=== PATIENT | female | born 1935 | race Caucasian/White ===

== ENCOUNTER → 2016-03-01 | Day surgery (SDC) | payer OTHER ==
[2016-02-25 09:03] VITALS: Ht 170.2 cm; Wt 81.8 kg
[~2016-03-01] VITALS: Ht 170.2 cm; Wt 81.8 kg
[~2016-03-01] MED LIST: 500ML BSS 0.3ML EPI 1:1000PF IRRIG ONE; ACETAMINOPHEN 325 MG TAB PO PRN; AMVISC PLUS 0.8ML SYRINGE INT OCU ONE; ASPI325T39 PO; ATROPINE SULFATE 0.1 MG/ML 5ML SYR IV PRN; AcetaZOLAMIDE 250 MG TAB PO SCH; BETAXOLOL HCL 0.25% OP SUSP PER DROP CHARGE OPR SCH; BRIMONIDINE TART 0.2% OP SOLN PER DROP CHARGE ONE; BSS FLUSH ONE; CHOL2000 PO; DOCU1CAP78 PO; ENDOCOAT 0.85ML SYRINGE INT OCU ONE; EpHEDrine SULFATE INJ 50 MG/ML AMP IV PRN; EpINEphrine INJ 1MG/ML AMP 1 MG/ML AMP ONE; FENTANYL CITRATE INJ 50 MCG/1 ML 2 ML VIAL IV PRN; FLUMAZENIL 0.1 MG/1 ML 10 ML VIAL IV PRN; HYDR2.5C60 RE; HYDROmorphone INJ 2 MG/ML SYR/VIAL IV PRN; LABETALOL HCL IV 5 MG/ML 20ML IV PRN; LACTATED RINGER'S 1000ML 500 ML IV SCH; LIDOCAINE 4% OP SOLN DROP CHARGE ONE; LIDOCAINE 4% OP SOLN DROP CHARGE OPR SCH; LIDOCAINE HCL 1% MPF 2 ML VIAL ONE; MIDAZOLAM HCL 1 MG/ML 2ML VIAL ONE; MIX: 4ML BSS 1ML EPI 1:1000 PF INSTIL ONE; MOXIFLOXACIN OPH SOLN PER DROP CHARGE ONE; MULT-614 PO; NALOXONE HCL 0.4 MG/1 ML VIAL/CARP IV PRN; OCUCOAT 1 ML SOLN IO ONE; ONDANSETRON INJ 2 MG/ML 2 ML VIAL IV PRN; PHENYLEPHRINE 100MCG/ML 5ML SYR IV PRN; POVIDONE-IODINE OP SOLN 30 ML BTL ONE; PRED1SUS3 OPR; PROPARACAINE 0.5% OP SOLN PER DROP CHARGE OPR SCH; PROPARACAINE HCL 0.5% OP SOLN 15 ML BTL OPR ONE; TOBRAMYCIN/DEXAMETHASONE OPH OINT PER APPLN CHARGE ONE; TOBRSUS; TRIA37.5 PO
--- NOTE | 2016-03-01 06:48 | History & Physical Bridge - [place] ---
H&P Re-Evaluation Bridge Note: I have examined the patient, reviewed the History & Physical and in the interval since the performance of the History & Physical I have noted the following changes of clinical significance: No changes noted
[2016-03-01] MEDS: PHENYLEPHRINE HCL 2.5% OP SOLN PER DROP CHARGE OPR SCH ×2 (07:04→07:09)
[2016-03-01] MEDS: TROPICAMIDE 1% OP SOLN PER DROP CHARGE OPR SCH ×2 (07:05→07:10)
[2016-03-01] MEDS: CYCLOPENTOLATE HCL 1% OP SOLN PER DROP CHARGE OPR SCH ×2 (07:07→07:11)
[2016-03-01] MEDS: MOXIFLOXACIN OPH SOLN PER DROP CHARGE OPR SCH ×2 (07:08→07:18)
--- NOTE | 2016-03-01 08:08 | Discharge Instructions-SurgCtr ---
Discharge Instructions Visit Reason for Visit: Cataract Right Eye Discharge Discharge Diagnosis / Problem: lens implant right eye Discharge Goals Goal(s): Improve function Medications Stopped Medications Name(s): HCTZ Activity Recommendations Activity Limitations: resume your previous activity Lifting Limitations: no more than 10 pounds Exercise/Sports Limitations: gradually increase as tolerated May Resume Sexual Activity: when tolerated Shower/Bathe: tomorrow Driving or Machine Use: resume 1 day after discharge Anesthesia . Post Anesthesia Instructions: If you have had General Anesthesia or IV Sedation: * Do not drive today. * Resume driving when surgeon permits. * Do not make important decisions or sign legal documents today. * Call surgeon for: 1. Temperature elevations greater than 101 degrees F. 2. Uncontrollable pain. 3. Excessive bleeding. 4. Persistent nausea and vomiting. 5. Medication intolerance (nausea, vomiting or rash). * For nausea and vomiting use only clear liquids such as: tea, soda, bouillon until nausea subsides, then gradually increase diet as tolerated. * If you have any concerns or questions, call your surgeon's office. If physician is unavailable and it is an emergency, call 911 or go to the nearest emergency room. . Instructions / Follow-Up Instructions / Follow-Up ACTIVITY RECOMMENDATIONS: * Light activities. * Mild irritation and blurred vision are common for the first few days. * You may walk outside, read, watch television. * Redness around the white part of the eye is common. MEDICATIONS: Resume previous medications unless instructed otherwise by your surgeon. * Take white Diamox (Acetazolamide) tablet at 1 pm today. Start all eye drops at 1 pm today: * Eye drops (today and tomorrow): Prednisone - one drop in operative eye every 3 hours while awake Tobramycin - one drop in operative eye every 3 hours while awake SPECIAL CARE INSTRUCTIONS: * Tape plastic shield over eye to sleep at night. Call your doctor at with any concerns or problems. FOLLOW UP VISIT: Follow-up with Dr Crow at [facility] as scheduled. Diet Recommendations Home Diet: no limitations Procedures Procedures Performed: right eye femtosecond bruno Pending Studies Studies pending at discharge: no Medical Emergencies . Who to Call and When: Medical Emergencies: If at any time you feel your situation is an emergency, please call 911 immediately. . Non-Emergent Contact Non-Emergency issues call your: Clinical Massage Therapist Call Non-Emergent contact if: your pain is not controlled [phone] . . "Provider Documentation" section prepared by Aleksandr Crow.
--- NOTE | 2016-03-01 08:12 | [facility] Operative Report ---
Operative Report 1. PREOPERATIVE DIAGNOSIS: Senile nuclear cataract, right eye. 2. POSTOPERATIVE DIAGNOSIS: Senile nuclear cataract, right eye. 3. PROCEDURE: Phacoemulsification of right cataract with posterior chamber lens implant, type Bausch & Lomb, model [id number], power +18.5 diopters. ANESTHESIA: Local standby. SURGEON: Dr. Crow. COMPLICATIONS: None. OPERATING TIME: 10 minutes. 4. OPERATION AND FINDINGS: DESCRIPTION OF PROCEDURE: The right pupil was dilated. The eye was appropriately marked. The patient was transported to the Femto Laser. The laser was used to make the primary incision and the capsulotomy and to soften the lens and placed two arcuate incisions. The anesthetic was administered using a topical technique. The right eye was prepped and draped. A speculum was placed. A paracentesis was placed. The chamber was filled with Amvisc Plus and Viscoat. Epinephrine solution was used. The capsule was removed. The nucleus was hydrodissected. The lens was removed with phacoemulsification. Time was 5.78 seconds. The aspiration unit was used to remove the cortex. The capsule was filled with Amvisc Plus. The lens implant was folded and placed into the capsule. The incision was hydrated. The Amvisc was aspirated. The wound was secure. The chamber was deep. The pupil was round. TobraDex ointment and Endocoat solution were placed. The speculum was removed. The patient was returned to the Recovery Room in stable condition. I attest to the content of the Intraoperative Record and any orders documented therein. Any exceptions are noted below. The scribe's documentation has been prepared in my presence, under my direction and personally reviewed by me in its entirety. I confirm that the note above accurately reflects all work, treatment, procedures, and medical decision making performed by me. I personally scribed for Aleksandr Crow M.D. (EULALIO) on 03/01/16 at 08:12. Electronically submitted by Christin Menjivar ([email or web address]).
[2016-03-01 08:14] VITALS: TEMP 36.4
[2016-03-01 08:40] VITALS: BP 155/90; PULSE 67; O2SAT 95
--- NOTE | 2016-03-01 08:42 | Anesthesia Progress Nt - [facility] ---
Anesthesia Post Op Note Date & Time Mar 01, 2016 at 08:42 Vital Signs Pain Intensity: 0 Vital Signs Past 12 Hours Date Time Temp Pulse Resp B/P Pulse Ox O2 Delivery O2 Flow Rate FiO2 03/01/16 08:40 67 20 155/90 95 Room Air 03/01/16 08:14 36.4 77 20 128/81 97 Room Air 03/01/16 07:46 158/91 03/01/16 07:43 84 03/01/16 07:43 84 92 03/01/16 07:39 170/87 03/01/16 07:38 92 94 03/01/16 07:38 92 16 03/01/16 06:56 36.5 86 16 179/80 96 Room Air Notes Mental Status: alert / awake / arousable, participated in evaluation Pt Amnestic to Procedure: Yes Nausea / Vomiting: adequately controlled Pain: adequately controlled Airway Patency, RR, SpO2: stable & adequate BP & HR: stable & adequate Hydration State: stable & adequate Anesthetic Complications: no major complications apparent
== END | disposition home or self-care (01) ==
LOC: X.SURG 06:38
PROVIDERS: ATTEND Specialist
DX: H25.11 Age-related nuclear cataract, right eye (principal); I10 Essential (primary) hypertension; N18.9 Chronic kidney disease, unspecified; Z88.8 Allergy status to other drugs, medicaments and biological substances

== ENCOUNTER → 2016-04-12 | Day surgery (SDC) | payer OTHER ==
[2016-03-30 15:05] VITALS: Ht 170.2 cm; Wt 81.8 kg
[~2016-04-12] VITALS: Ht 170.2 cm; Wt 81.8 kg
[~2016-04-12] MED LIST changes: +AcetylCHOLine CHL OP SOL 1:100 2 ML BTL ONE; +BETAXOLOL HCL 0.25% OP SUSP PER DROP CHARGE OPL SCH; -BETAXOLOL HCL 0.25% OP SUSP PER DROP CHARGE OPR SCH; -FENTANYL CITRATE INJ 50 MCG/1 ML 2 ML VIAL IV PRN; -FLUMAZENIL 0.1 MG/1 ML 10 ML VIAL IV PRN; -HYDROmorphone INJ 2 MG/ML SYR/VIAL IV PRN; -LABETALOL HCL IV 5 MG/ML 20ML IV PRN; +LIDOCAINE 4% OP SOLN DROP CHARGE OPL SCH; -LIDOCAINE 4% OP SOLN DROP CHARGE OPR SCH; -NALOXONE HCL 0.4 MG/1 ML VIAL/CARP IV PRN; -ONDANSETRON INJ 2 MG/ML 2 ML VIAL IV PRN; -PHENYLEPHRINE 100MCG/ML 5ML SYR IV PRN; +PROPARACAINE 0.5% OP SOLN PER DROP CHARGE OPL SCH; -PROPARACAINE 0.5% OP SOLN PER DROP CHARGE OPR SCH; -PROPARACAINE HCL 0.5% OP SOLN 15 ML BTL OPR ONE
[2016-04-12] MEDS: PHENYLEPHRINE HCL 2.5% OP SOLN PER DROP CHARGE OPL SCH ×2 (10:37→10:42)
[2016-04-12] MEDS: TROPICAMIDE 1% OP SOLN PER DROP CHARGE OPL SCH ×2 (10:38→10:43)
[2016-04-12] MEDS: CYCLOPENTOLATE HCL 1% OP SOLN PER DROP CHARGE OPL SCH ×2 (10:39→10:44)
[2016-04-12] MEDS: MOXIFLOXACIN OPH SOLN PER DROP CHARGE OPL SCH ×2 (10:40→10:50)
--- NOTE | 2016-04-12 11:40 | Discharge Instructions-SurgCtr ---
Discharge Instructions Visit Reason for Visit: Cataract Left Eye Discharge Discharge Diagnosis / Problem: lens implant left eye Discharge Goals Goal(s): Improve function Activity Recommendations Activity Limitations: resume your previous activity Lifting Limitations: no more than 10 pounds Exercise/Sports Limitations: gradually increase as tolerated May Resume Sexual Activity: when tolerated Shower/Bathe: tomorrow Driving or Machine Use: resume 1 day after discharge Anesthesia . Post Anesthesia Instructions: If you have had General Anesthesia or IV Sedation: * Do not drive today. * Resume driving when surgeon permits. * Do not make important decisions or sign legal documents today. * Call surgeon for: 1. Temperature elevations greater than 101 degrees F. 2. Uncontrollable pain. 3. Excessive bleeding. 4. Persistent nausea and vomiting. 5. Medication intolerance (nausea, vomiting or rash). * For nausea and vomiting use only clear liquids such as: tea, soda, bouillon until nausea subsides, then gradually increase diet as tolerated. * If you have any concerns or questions, call your surgeon's office. If physician is unavailable and it is an emergency, call 911 or go to the nearest emergency room. . Instructions / Follow-Up Instructions / Follow-Up ACTIVITY RECOMMENDATIONS: * Light activities. * Mild irritation and blurred vision are common for the first few days. * You may walk outside, read, watch television. * Redness around the white part of the eye is common. MEDICATIONS: Resume previous medications unless instructed otherwise by your surgeon. * Take white Diamox (Acetazolamide) tablet at 2 pm today. Start all eye drops at 2 pm today: * Eye drops (today and tomorrow): Prednisone - one drop in operative eye every 3 hours while awake Tobramycin - one drop in operative eye every 3 hours while awake SPECIAL CARE INSTRUCTIONS: * Tape plastic shield over eye to sleep at night. Call your doctor at with any concerns or problems. FOLLOW UP VISIT: Follow-up with Dr Crow at [facility] office as scheduled. Diet Recommendations Home Diet: no limitations Procedures Procedures Performed: cataract extraction with lens implant Pending Studies Studies pending at discharge: no Medical Emergencies . Who to Call and When: Medical Emergencies: If at any time you feel your situation is an emergency, please call 911 immediately. . Non-Emergent Contact Non-Emergency issues call your: Granite Countertop Installer Call Non-Emergent contact if: your pain is not controlled [phone] . . "Provider Documentation" section prepared by Aleksandr Crow.
--- NOTE | 2016-04-12 11:42 | [facility] Operative Report ---
Operative Report Date of Service Apr 12, 2016. Operative Report 1. PREOPERATIVE DIAGNOSIS: Senile nuclear cataract, left eye. 2. POSTOPERATIVE DIAGNOSIS: Senile nuclear cataract, left eye. 3. PROCEDURE: Phacoemulsification of left cataract with posterior chamber lens implant, type Bausch [employer] Lomb, model [id number], power +19.0 diopters. ANESTHESIA: Local standby. SURGEON: Dr. Crow. COMPLICATIONS: None. OPERATING TIME: 10 minutes. 4. OPERATION AND FINDINGS: DESCRIPTION OF PROCEDURE: The left pupil was dilated. The anesthetic was administered using a topical technique. The left eye was prepped and draped. A speculum was placed. A clear corneal incision was formed. The chamber was filled with Amvisc Plus and Endocoat. Epinephrine solution was used. A paracentesis was placed. A capsulorrhexis was performed. The nucleus was hydrodissected. The lens was removed with phacoemulsification. Time was 4.42 seconds. The aspiration unit was used to remove the cortex. The capsule was filled with Amvisc Plus. The lens implant was folded and placed into the capsule. The incision was hydrated. The Amvisc was aspirated. The wound was secure. The chamber was deep. The pupil was round. TobraDex ointment and Vigamox solution were placed. Miochol was irrigated into the chamber. The speculum was removed. The patient was returned to the Recovery Room in stable condition. I attest to the content of the Intraoperative Record and any orders documented therein. Any exceptions are noted below. The scribe's documentation has been prepared in my presence, under my direction and personally reviewed by me in its entirety. I confirm that the note above accurately reflects all work, treatment, procedures, and medical decision making performed by me. I personally scribed for Aleksandr Crow M.D. (EULALIO) on 04/12/16 at 11:42. Electronically submitted by Christin RON).
[2016-04-12 11:46] VITALS: TEMP 36.4
[2016-04-12 12:06] VITALS: BP 148/81; PULSE 67; O2SAT 97
--- NOTE | 2016-04-12 12:29 | Anesthesia Progress Nt - [facility] ---
Anesthesia Post Op Note Date & Time Apr 12, 2016 at 12:29 Vital Signs Pain Intensity: 0 Vital Signs Past 12 Hours Date Time Temp Pulse Resp B/P Pulse Ox O2 Delivery O2 Flow Rate FiO2 04/12/16 12:06 67 16 148/81 97 Room Air 04/12/16 11:46 36.4 75 16 168/91 96 Room Air 04/12/16 10:26 36.5 75 22 156/77 96 Room Air Notes Mental Status: alert / awake / arousable, participated in evaluation Pt Amnestic to Procedure: Yes Nausea / Vomiting: adequately controlled Pain: adequately controlled Airway Patency, RR, SpO2: stable & adequate BP & HR: stable & adequate Hydration State: stable & adequate Anesthetic Complications: no major complications apparent
== END | disposition home or self-care (01) ==
LOC: X.SURG 09:41
PROVIDERS: ATTEND Specialist
DX: H25.12 Age-related nuclear cataract, left eye (principal); M19.90 Unspecified osteoarthritis, unspecified site; I12.9 Hypertensive chronic kidney disease with stage 1 through stage 4 chronic kidney disease, or unspecified chronic kidney disease; N18.9 Chronic kidney disease, unspecified; Z68.28 Body mass index [BMI] 28.0-28.9, adult; Z86.73 Personal history of transient ischemic attack (TIA), and cerebral infarction without residual deficits; Z90.5 Acquired absence of kidney; Z98.41 Cataract extraction status, right eye

== ENCOUNTER → 2016-07-26 | Outpatient (CLI) | payer OTHER ==
[~2016-07-26] MED LIST changes: -500ML BSS 0.3ML EPI 1:1000PF IRRIG ONE; -ACETAMINOPHEN 325 MG TAB PO PRN; -AMVISC PLUS 0.8ML SYRINGE INT OCU ONE; -ATROPINE SULFATE 0.1 MG/ML 5ML SYR IV PRN; -AcetaZOLAMIDE 250 MG TAB PO SCH; -AcetylCHOLine CHL OP SOL 1:100 2 ML BTL ONE; -BETAXOLOL HCL 0.25% OP SUSP PER DROP CHARGE OPL SCH; -BRIMONIDINE TART 0.2% OP SOLN PER DROP CHARGE ONE; -BSS FLUSH ONE; -ENDOCOAT 0.85ML SYRINGE INT OCU ONE; -EpHEDrine SULFATE INJ 50 MG/ML AMP IV PRN; -EpINEphrine INJ 1MG/ML AMP 1 MG/ML AMP ONE; -LACTATED RINGER'S 1000ML 500 ML IV SCH; -LIDOCAINE 4% OP SOLN DROP CHARGE ONE; -LIDOCAINE 4% OP SOLN DROP CHARGE OPL SCH; -LIDOCAINE HCL 1% MPF 2 ML VIAL ONE; -MIDAZOLAM HCL 1 MG/ML 2ML VIAL ONE; -MIX: 4ML BSS 1ML EPI 1:1000 PF INSTIL ONE; -MOXIFLOXACIN OPH SOLN PER DROP CHARGE ONE; -OCUCOAT 1 ML SOLN IO ONE; -POVIDONE-IODINE OP SOLN 30 ML BTL ONE; -PROPARACAINE 0.5% OP SOLN PER DROP CHARGE OPL SCH; -TOBRAMYCIN/DEXAMETHASONE OPH OINT PER APPLN CHARGE ONE
[2016-07-26 17:35] LABS: HEMATOCRIT 36.4 % (37-47); MEAN CELL VOLUME 90.3 fL (80-100); MEAN CORPUSCULAR HGB CONC 33.2 g/dl (32-36); MEAN PLATELET VOLUME 10.6 fL (7.4-10.4); PLATELET COUNT 234 K/uL (130-400); RED BLOOD COUNT 4.03 M/uL (4.2-5.4); WHITE BLOOD COUNT 6.68 K/uL (4.8-10.8)
[2016-07-26 18:00] LABS: URINE APPEARANCE CLEAR (CLEAR); URINE BILIRUBIN NEG (NEG); URINE COLOR YELLOW; URINE NITRITE NEG (NEG); URINE SPECIFIC GRAVITY 1.014 (1.000-1.030); UROBILINOGEN NEG (NEG)
[2016-07-26 18:11] LABS: BLOOD UREA NITROGEN 35 mg/dl (7-18); BUN/CREATININE RATIO 21.6 (10-20); CARBON DIOXIDE 30 mmol/L (21-32); CHLORIDE 104 mmol/L (98-107); GLUCOSE 105 mg/dl (70-99); PHOSPHORUS 3.8 mg/dl (2.5-4.9); SODIUM 141 mmol/L (136-145)
[2016-07-26 18:12] LABS: MANUAL MICROSCOPIC REQUIRED? NO; REVIEW REQ? NO
[2016-07-26 18:18] LABS: URINE PROTIEN/CREAT RATIO 0.1 (0-0.2); URINE TOTAL PROTEIN 6.2 mg/dl (0-11.9)
[2016-07-26 18:34] LABS: CALCIUM 9.1 mg/dl (8.5-10.1)
== END | disposition home or self-care (01) ==
LOC: C.LABPVFM 15:26
PROVIDERS: ATTEND Internal Medicine Nephrology
DX: I12.9 Hypertensive chronic kidney disease with stage 1 through stage 4 chronic kidney disease, or unspecified chronic kidney disease (principal); N18.3 Chronic kidney disease, stage 3 (moderate); Z90.5 Acquired absence of kidney; E55.9 Vitamin D deficiency, unspecified

== ENCOUNTER → 2016-10-05 | Outpatient (CLI) | payer OTHER ==
--- NOTE | 2016-10-05 10:02 | DIAGNOSTIC IMAGING REPORT ---
CHEST 2 VIEWS ROUTINE CLINICAL HISTORY: R53.83 [id number] Dyspnea on [id number] COMPARISON STUDY: 11/25/2014 FINDINGS: Chronic pleural reactive changes left base. Lungs otherwise are clear. No evidence for cardiac enlargement. IMPRESSION: Chronic change. No acute process. The above report was generated using voice recognition software. It may contain grammatical, syntax or spelling errors. Electronically signed by: Ke Nevarez M.D. 10/05/2016 10:00 AM Dictated Date/Time: 10/05/2016 10:00 AM
[2016-10-05 12:23] LABS: BASO % 0.4 %; BASO ABS # 0.03 K/uL (0-0.2); COMPLETE YES; EOS % 4.4 %; HEMATOCRIT 39.8 % (37-47); IG% 0.3 %; LYMPH ABS # 2.05 K/uL (1.2-3.4); MEAN CELL VOLUME 90.5 fL (80-100); MEAN CORPUSCULAR HEMOGLOBIN 29.5 pg (25-34); MEAN CORPUSCULAR HGB CONC 32.7 g/dl (32-36); MEAN PLATELET VOLUME 10.5 fL (7.4-10.4); MONO % 8.8 %; NEUT % 60.1 %; PLATELET COUNT 224 K/uL (130-400); WHITE BLOOD COUNT 7.87 K/uL (4.8-10.8)
[2016-10-05 13:19] LABS: BLOOD UREA NITROGEN 37 mg/dl (7-18); BUN/CREATININE RATIO 21.6 (10-20); CALCIUM 9.4 mg/dl (8.5-10.1); CARBON DIOXIDE 32 mmol/L (21-32); CHLORIDE 102 mmol/L (98-107); GLUCOSE 94 mg/dl (70-99); POTASSIUM 4.3 mmol/L (3.5-5.1); SODIUM 138 mmol/L (136-145)
[2016-10-10 21:22] LABS: 18KDIGG BAND REACTIVE (NONREACTIVE); 23KDIGG BAND REACTIVE (NONREACTIVE); 23KDIGM BAND REACTIVE (NONREACTIVE); 28KDIGG BAND NONREACTIVE (NONREACTIVE); 30KDIGG BAND NONREACTIVE (NONREACTIVE); 39KDIGG BAND REACTIVE (NONREACTIVE); 39KDIGM BAND NONREACTIVE (NONREACTIVE); 41KDIGG BAND REACTIVE (NONREACTIVE); 41KDIGM BAND REACTIVE (NONREACTIVE); 45KDIGG BAND NONREACTIVE (NONREACTIVE); 58KDIGG BAND REACTIVE (NONREACTIVE); 66KDIGG BAND REACTIVE (NONREACTIVE); 93KDIGG BAND NONREACTIVE (NONREACTIVE)
== END | disposition home or self-care (01) ==
LOC: C.RADPV 09:33
PROVIDERS: ATTEND Nurse Practitioner
DX: R06.09 Other forms of dyspnea (principal); R53.83 Other fatigue; R20.0 Anesthesia of skin; A69.20 Lyme disease, unspecified

== ENCOUNTER → 2017-01-29 | Outpatient (CLI) | payer OTHER ==
[2017-01-29 17:38] LABS: MEAN CELL VOLUME 91.1 fL (80-100); MEAN CORPUSCULAR HEMOGLOBIN 30.2 pg (25-34); MEAN CORPUSCULAR HGB CONC 33.2 g/dl (32-36); MEAN PLATELET VOLUME 10.8 fL (7.4-10.4); PLATELET COUNT 221 K/uL (130-400); RED BLOOD COUNT 4.17 M/uL (4.2-5.4); WHITE BLOOD COUNT 7.56 K/uL (4.8-10.8)
[2017-01-29 17:41] LABS: URINE APPEARANCE CLEAR (CLEAR); URINE BILIRUBIN NEG (NEG); URINE COLOR YELLOW; URINE NITRITE NEG (NEG); URINE PH 6.5 (4.5-7.5); URINE SPECIFIC GRAVITY 1.021 (1.000-1.030); UROBILINOGEN NEG (NEG)
[2017-01-29 17:56] LABS: MANUAL MICROSCOPIC REQUIRED? NO; REVIEW REQ? NO
[2017-01-29 18:29] LABS: ALT/SGPT 25 U/L (12-78); BLOOD UREA NITROGEN 33 mg/dl (7-18); BUN/CREATININE RATIO 21.4 (10-20); CALCIUM 8.9 mg/dl (8.5-10.1); CARBON DIOXIDE 28 mmol/L (21-32); CHLORIDE 104 mmol/L (98-107); CREATININE 1.53 mg/dl (0.60-1.20); GLUCOSE 96 mg/dl (70-99); POTASSIUM 4.2 mmol/L (3.5-5.1); SODIUM 138 mmol/L (136-145); URIC ACID 8.4 mg/dl (2.6-7.2)
[2017-01-29 18:32] LABS: ALKALINE PHOSPHATASE 90 U/L (45-117); AST/SGOT 24 U/L (15-37)
[2017-01-29 18:46] LABS: CREATININE, URINE 99.5 mg/dl; URINE PROTIEN/CREAT RATIO 0.1 (0-0.2); URINE TOTAL PROTEIN 11.8 mg/dl (0-11.9)
== END | disposition home or self-care (01) ==
LOC: C.LABPVFM 01:56
PROVIDERS: ATTEND Internal Medicine Nephrology
DX: M10.9 Gout, unspecified (principal); N18.3 Chronic kidney disease, stage 3 (moderate); Z90.5 Acquired absence of kidney; E55.9 Vitamin D deficiency, unspecified; I12.9 Hypertensive chronic kidney disease with stage 1 through stage 4 chronic kidney disease, or unspecified chronic kidney disease

== ENCOUNTER 2017-03-26 13:36 | Observation (INO) | payer OTHER ==
[~2017-03-26] VITALS: Ht 170.2 cm; Wt 84.6 kg
[2017-03-26] MEDS ORDERED: ASPIRIN 81 MG CHEW PO STA (13:59)
--- NOTE | 2017-03-26 14:37 | DIAGNOSTIC IMAGING REPORT ---
CHEST ONE VIEW PORTABLE CLINICAL HISTORY: Chest Pain dyspnea COMPARISON STUDY: 10/05/2016 FINDINGS: The bones soft tissues and hemidiaphragms are normal. The cardiomediastinal silhouette is normal. The lungs are clear. The pulmonary vasculature is normal. IMPRESSION: Negative chest. The above report was generated using voice recognition software. It may contain grammatical, syntax or spelling errors. Electronically signed by: Ke Nevarez M.D. 03/26/2017 2:35 PM Dictated Date/Time: 03/26/2017 2:30 PM
[2017-03-26 15:15] LABS: BASO % 0.5 %; BASO ABS # 0.04 K/uL (0-0.2); EOS % 8.4 %; EOS ABS # 0.73 K/uL (0-0.5); HEMATOCRIT 36.6 % (37-47); HEMOGLOBIN 12.1 g/dL (12.0-16.0); IG# 0.02 K/uL (0.00-0.02); LYMPH % 24.7 %; LYMPH ABS # 2.13 K/uL (1.2-3.4); MEAN CELL VOLUME 89.5 fL (80-100); MEAN CORPUSCULAR HEMOGLOBIN 29.6 pg (25-34); MEAN CORPUSCULAR HGB CONC 33.1 g/dl (32-36); MEAN PLATELET VOLUME 10.5 fL (7.4-10.4); MONO % 8.4 %; MONO ABS # 0.73 K/uL (0.11-0.59); NEUT % 57.8 %; NEUT ABS # 4.99 K/uL (1.4-6.5); PLATELET COUNT 227 K/uL (130-400); RED CELL DISTRIBUTION WIDTH CV 13.8 % (11.5-14.5); WHITE BLOOD COUNT 8.64 K/uL (4.8-10.8)
[2017-03-26 15:49] LABS: BLOOD UREA NITROGEN 32 mg/dl (7-18); CALCIUM 8.6 mg/dl (8.5-10.1); CARBON DIOXIDE 28 mmol/L (21-32); CREATININE 1.56 mg/dl (0.60-1.20); GLUCOSE 88 mg/dl (70-99); POTASSIUM 4.2 mmol/L (3.5-5.1); SODIUM 138 mmol/L (136-145)
[2017-03-26 15:54] LABS: CKMB 1.4 ng/ml (0.5-3.6)
[2017-03-26] MEDS ORDERED: NITROGLYCERIN 0.4 MG SL PER TAB CHARGE SL PRN (16:45)
[2017-03-26] MEDS ORDERED: ACETAMINOPHEN 325 MG TAB PO PRN (16:45)
[2017-03-26] MEDS ORDERED: MAGNESIUM HYDROXIDE SUSP 30 ML UDC PO PRN (16:45)
[2017-03-26] MEDS ORDERED: ALUMINUM/MAGNESIUM/SIMETH (MAALOX MAX) 30 ML UDC PO PRN (16:45)
[2017-03-26] MEDS ORDERED: ONDANSETRON INJ 2 MG/ML 2 ML VIAL IV PRN (16:45)
--- NOTE | 2017-03-26 17:16 | History and Physical ---
History & Physical Date & Time of Service: Mar 26, 2017 at 17:08 Chief Complaint: Sob, Left Chest Pain Primary Care Physician: Gaby Mcelroy C.R.N.P History of Present Illness 82-year-old female with progressive decline in exercise stamina over the last few weeks. To the point were she getting vacuum room. Over the last few days she's had some left arm pain without any other associated symptoms, and then on the day of admission had a difficult to describe left chest pain behind her breast. This was also without any associated symptoms. The pain resolved she attempted to see her primary care physician however they were full so she presented to the ER.. Her initial evaluation was unremarkable for enzymes and EKG or chest x-ray changes however her story was convincing and corroborated by her . 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 Gonzalez and his oversight to get her through it Past Medical/Surgical History Medical Problems: (1) Angiomyolipoma Status: Resolved (2) History of TIA (transient ischemic attack) Status: Resolved (3) HTN (hypertension) Status: Chronic (4) Lyme disease on 2 occasions Status: Chronic Surgical Problems: (1) H/O tubal ligation Status: Resolved (2) H/O unilateral nephrectomy Status: Resolved Family History Cancer Heart disease Hypertension Lung disease Social History Smoking Status: Never Smoker (however significant secondhand smoke exposure as a youth) Drug Use: none Marital Status: Occupational Status: retired Multi-Drug Resistant Organisms History of MDRO: No Allergies Coded Allergies: Propoxyphene (Verified Allergy, Unknown, ? CANT REMEMBER, 03/26/17) Sulfamethoxazole (Verified Allergy, Unknown, FELT DEPRESSED, 03/26/17) Trimethoprim (Verified Allergy, Unknown, UNKNOWN, 03/26/17) Lisinopril (Verified Adverse Reaction, Mild, cough, 03/26/17) Meperidine (Unverified Adverse Reaction, Unknown, COULD NOT WAKE UP AFTER , 03/26/17) Home Medications Scheduled Aspirin (Aspirin Ec), 325 MG PO QAM Cholecalciferol (Vitamin D3), 1 CAP PO QAM Docusate Calcium (Stool Softener), 1 CAP PO QAM Multiple Vitamins W/ Minerals (Centrum Silver Ultra Wome), 1 TAB PO QPM Prednisolone Acetate (Ophth) (Pred Forte 1% Oph), 1 DROPS OPR BID Triamterene/Hctz (Dyazide 37.5MG/25MG), 1 TAB PO QAM Scheduled PRN Hydrocortisone (Rectal) (Procto-Med Hc), 1 DOSE RE DIRECTED PRN for PRN Review of Systems ROS: well nourished well developed No double vision blurry vision No problems with speech or swallowing No palpitations, but she has had occasional chest pain that she has difficulty describing No Wheezing the patient says she gets short of breath or "played out when she exerts herself No abdominal pain nausea vomiting diarrhea she does have chronic constipation worsened by hemorrhoids, no changes in appetite or weight No burning urine urine frequency or changes in color No focal joint pain or muscle pain her feet do bother her and she is worried about doing a treadmill test because of the No skin rashes or oral lesions No unusual bruising or bleeding No focused back pain or loss of strength she is complaining about distal finger and toe neuropathy though No changes in memory or confusion Physical Exam Vital Signs Date Time Temp Pulse Resp B/P (MAP) Pulse Ox O2 Delivery O2 Flow Rate FiO2 03/26/17 15:06 64 18 148/77 97 Room Air 03/26/17 14:32 71 03/26/17 14:22 96 Room Air 03/26/17 14:21 68 20 146/75 98 Room Air 03/26/17 13:38 36.8 76 18 151/82 98 General Appearance: WD/WN, no apparent distress Head: normocephalic, atraumatic Eyes: normal inspection, PERRL, EOMI, sclerae normal ENT: hearing grossly normal, pharynx normal Neck: supple, thyroid normal Respiratory/Chest: chest non-tender, lungs clear, normal breath sounds Cardiovascular: regular rate, rhythm, no murmur Abdomen/GI: non tender, soft Back: no CVA tenderness, no muscle spasm Extremities/Musculoskelatal: no pedal edema, normal range of motion Neurologic/Psych: alert, oriented x 3 Skin: normal color, warm/dry, no rash Diagnostics Laboratory Results Results Past 24 Hours Test 03/26/17 14:15 Range/Units White Blood Count 8.64 4.8-10.8 K/uL Red Blood Count 4.09 4.2-5.4 M/uL Hemoglobin 12.1 12.0-16.0 g/dL Hematocrit 36.6 37-47 % Mean Corpuscular Volume 89.5 80-100 fL Mean Corpuscular Hemoglobin 29.6 25-34 pg Mean Corpuscular Hemoglobin Concent 33.1 32-36 g/dl Platelet Count 227 130-400 K/uL Mean Platelet Volume 10.5 7.4-10.4 fL Neutrophils (%) (Auto) 57.8 % Lymphocytes (%) (Auto) 24.7 % Monocytes (%) (Auto) 8.4 % Eosinophils (%) (Auto) 8.4 % Basophils (%) (Auto) 0.5 % Neutrophils # (Auto) 4.99 1.4-6.5 K/uL Lymphocytes # (Auto) 2.13 1.2-3.4 K/uL Monocytes # (Auto) 0.73 0.11-0.59 K/uL Eosinophils # (Auto) 0.73 0-0.5 K/uL Basophils # (Auto) 0.04 0-0.2 K/uL RDW Standard Deviation 45.0 36.4-46.3 fL RDW Coefficient of Variation 13.8 11.5-14.5 % Immature Granulocyte % (Auto) 0.2 % Immature Granulocyte # (Auto) 0.02 0.00-0.02 K/uL Sodium Level 138 136-145 mmol/L Potassium Level 4.2 3.5-5.1 mmol/L Chloride Level 103 98-107 mmol/L Carbon Dioxide Level 28 21-32 mmol/L Anion Gap 7.0 3-11 mmol/L Blood Urea Nitrogen 32 7-18 mg/dl Creatinine 1.56 0.60-1.20 mg/dl Est Creatinine Clear Calc Drug Dose 30.8 ml/min Estimated GFR () 35.2 Estimated GFR (Non- 30.4 BUN/Creatinine Ratio 20.6 10-20 Random Glucose 88 70-99 mg/dl Calcium Level 8.6 8.5-10.1 mg/dl Total Creatine Kinase 110 26-192 U/L Creatine Kinase MB 1.4 0.5-3.6 ng/ml Creatine Kinase MB Ratio 1.3 0-3.0 Troponin I < 0.015 0-0.045 ng/ml CXR normal Normal EKG Impression Assessment and Plan 82-year-old female with atypical chest pain symptoms Patient be observed in telemetry serial enzymes and EKGs will be undertaken we' ll put her in for a dobutamine stress echo. The patient's sees Dr. Garcia and wanted that to be noted in the chart we'll hold her diuretic at this time will continue aspirin if her pain recurs may consider instituting metoprolol or nitrates Patient does have significant second smoke exposure and she was told in the past by manager home improvement that she did not of the "best" lungs she is not having any wheezing or other problems at this time will continue to support symptoms if they arise she is not hypoxic in the ER Constipation the patient requests to continue her Colace therapy does not want anything additional order prunes with her meals Chronic kidney disease stage III and unilateral kidney will hold her diuretic at this time watch her renal function daily renal dose medicines were appropriate DVT prevention will be SCDs and early ambulation Patient is a full code Level of Care Telemetry Resuscitation Status FULL RESUSCITATION VTE Prophylaxis VTE Risk Assessment Done? Y/N: Yes Risk Level: Moderate Given or contraindicated: SCD's, Treatment not indicated
[2017-03-26] MEDS ORDERED: HydrALAZINE HCL 20 MG/ML VIAL IV PRN (17:30)
--- NOTE | 2017-03-26 19:12 | EMERGENCY ROOM VISIT NOTE ---
History Report prepared by Karuna: Alvaro Holguin Under the Supervision of: Dr. Jonn Cortes D.O. First contact with patient: 13:52 Chief Complaint: CHEST PAIN Stated Complaint: SOB, LEFT CHEST PAIN Nursing Triage Summary: pt to the ED with c/o left sided chest pain and down left arm on sunday with SOB and decreased energy since then pt still has chest pain and pain is intermittant and "something different pain " per pt called medical center and they told her to come to the ED History of Present Illness The patient is an 82 year old female who presents to the Emergency Room with complaints of on and off left chest pain starting this morning, and the patient states that that the last time she had this pain was right before lunch. The patient notes that she has been increasingly short of breath for the past 2-3 weeks, and the other day she had an episode of left arm pain that resolved. The patient states that her chest pain does not come or go with anything, and she is not more short of breath with exertion or the chest pain. The pain is not worsened by anything. She states that when she is cleaning her house she has to rest because she is so short of breath. She states that her pain is not a sharp pain, and she denies any arm pain or jaw pain today. The patient additionally reports that she has a cough, and she has been congested at night while using a humidifier and is fine during the day. The patient has a history of hypertension , and she states that she takes aspiring daily. She denies any history of heart attacks, diabetes, and high cholesterol. Pt denies headache, change in vision, fevers, nausea, vomiting, diarrhea, pain with urination, leg swelling, and melena. She is not a smoker. Source of History: patient Onset: this morning Position: chest (left) Timing: other (on and off) Modifying Factors (Worsening): other (nothing) Associated Symptoms: + cough, + SOB, No nausea, No vomiting, No abdominal pain Note: Associated symptoms: arm pain Review of Systems See HPI for pertinent positives & negatives. A total of 10 systems reviewed and were otherwise negative. Past Medical & Surgical Medical Problems: (1) Angiomyolipoma (2) Chest pain (3) History of TIA (transient ischemic attack) (4) HTN (hypertension) (5) Lyme disease Surgical Problems: (1) H/O tubal ligation (2) H/O unilateral nephrectomy Family History Cancer Heart disease Hypertension Lung disease Social History Smoking Status: Never Smoker Alcohol Use: none Drug Use: none Marital Status: Housing Status: lives with significant other Occupation Status: retired Current/Historical Medications Scheduled Aspirin (Aspirin Ec), 325 MG PO QAM Cholecalciferol (Vitamin D3), 1 CAP PO QAM Docusate Calcium (Stool Softener), 1 CAP PO QAM Multiple Vitamins W/ Minerals (Centrum Silver Ultra Wome), 1 TAB PO QPM Prednisolone Acetate (Ophth) (Pred Forte 1% Oph), 1 DROPS OPR BID Triamterene/Hctz (Dyazide 37.5MG/25MG), 1 TAB PO QAM Scheduled PRN Hydrocortisone (Rectal) (Procto-Med Hc), 1 DOSE RE DIRECTED PRN for PRN Allergies Coded Allergies: Propoxyphene (Verified Allergy, Unknown, ? CANT REMEMBER, 03/26/17) Sulfamethoxazole (Verified Allergy, Unknown, FELT DEPRESSED, 03/26/17) Trimethoprim (Verified Allergy, Unknown, UNKNOWN, 03/26/17) Lisinopril (Verified Adverse Reaction, Mild, cough, 03/26/17) Meperidine (Unverified Adverse Reaction, Unknown, COULD NOT WAKE UP AFTER , 03/26/17) Physical Exam Vital Signs Date Time Temp Pulse Resp B/P (MAP) Pulse Ox O2 Delivery O2 Flow Rate FiO2 03/26/17 21:23 76 18 164/82 96 03/26/17 20:30 72 18 168/84 96 Room Air 03/26/17 18:30 64 03/26/17 18:27 74 16 175/79 98 Room Air 03/26/17 17:00 65 18 175/77 98 Room Air 03/26/17 15:06 64 18 148/77 97 Room Air 03/26/17 14:32 71 03/26/17 14:22 96 Room Air 03/26/17 14:21 68 20 146/75 98 Room Air 03/26/17 13:38 36.8 76 18 151/82 98 Physical Exam GENERAL: Sitting up in bed, alert, well appearing, well nourished, no distress, non-toxic EYE EXAM: normal conjunctiva. OROPHARYNX: no exudate, no erythema, lips, buccal mucosa, and tongue normal and mucous membranes are moist NECK: supple, no nuchal rigidity, no adenopathy, non-tender LUNGS: Clear to auscultation. Normal chest wall mechanics HEART: no murmurs, S1 normal and S2 normal ABDOMEN: abdomen soft, non-tender, normo-active bowel sounds, no masses, no rebound or guarding. BACK: Back is symmetrical on inspection and there is no deformity, no midline tenderness, no CVA tenderness. SKIN: no rashes and no bruising UPPER EXTREMITIES: upper extremities are grossly normal. LOWER EXTREMITIES: Calves are equal bilaterally. No pitting edema. NEURO EXAM: Normal sensorium, cranial nerves II-XII grossly intact, normal speech, no gross weakness of arms, no gross weakness of legs. Medical Decision & Procedures ER Provider Diagnostic Interpretation: Radiology results as stated below per my review and the radiologist's interpretation: CHEST ONE VIEW PORTABLE CLINICAL HISTORY: Chest Pain dyspnea COMPARISON STUDY: 10/05/2016 FINDINGS: The bones soft tissues and hemidiaphragms are normal. The cardiomediastinal silhouette is normal. The lungs are clear. The pulmonary vasculature is normal. IMPRESSION: Negative chest. The above report was generated using voice recognition software. It may contain grammatical, syntax or spelling errors. Electronically signed by: Ke Nevarez M.D. 03/26/2017 2:35 PM Dictated Date/Time: 03/26/2017 2:30 PM Laboratory Results 03/26/17 14:15 Red Blood Count 4.09, Mean Corpuscular Volume 89.5, Mean Corpuscular Hemoglobin 29.6, Mean Corpuscular Hemoglobin Concent 33.1, Mean Platelet Volume 10.5, Neutrophils (%) (Auto) 57.8, Lymphocytes (%) (Auto) 24.7, Monocytes (%) (Auto) 8.4, Eosinophils (%) (Auto) 8.4, Basophils (%) (Auto) 0.5, Neutrophils # (Auto) 4.99, Lymphocytes # (Auto) 2.13, Monocytes # (Auto) 0.73, Eosinophils # (Auto) 0.73, Basophils # (Auto) 0.04 03/26/17 14:15 Test 03/26/17 14:15 White Blood Count 8.64 K/uL (4.8-10.8) Red Blood Count 4.09 M/uL (4.2-5.4) Hemoglobin 12.1 g/dL (12.0-16.0) Hematocrit 36.6 % (37-47) Mean Corpuscular Volume 89.5 fL (80-100) Mean Corpuscular Hemoglobin 29.6 pg (25-34) Mean Corpuscular Hemoglobin Concent 33.1 g/dl (32-36) Platelet Count 227 K/uL (130-400) Mean Platelet Volume 10.5 fL (7.4-10.4) Neutrophils (%) (Auto) 57.8 % Lymphocytes (%) (Auto) 24.7 % Monocytes (%) (Auto) 8.4 % Eosinophils (%) (Auto) 8.4 % Basophils (%) (Auto) 0.5 % Neutrophils # (Auto) 4.99 K/uL (1.4-6.5) Lymphocytes # (Auto) 2.13 K/uL (1.2-3.4) Monocytes # (Auto) 0.73 K/uL (0.11-0.59) Eosinophils # (Auto) 0.73 K/uL (0-0.5) Basophils # (Auto) 0.04 K/uL (0-0.2) RDW Standard Deviation 45.0 fL (36.4-46.3) RDW Coefficient of Variation 13.8 % (11.5-14.5) Immature Granulocyte % (Auto) 0.2 % Immature Granulocyte # (Auto) 0.02 K/uL (0.00-0.02) Anion Gap 7.0 mmol/L (3-11) Est Creatinine Clear Calc Drug Dose 30.8 ml/min Estimated GFR () 35.2 Estimated GFR (Non- 30.4 BUN/Creatinine Ratio 20.6 (10-20) Calcium Level 8.6 mg/dl (8.5-10.1) Total Creatine Kinase 110 U/L (26-192) Creatine Kinase MB 1.4 ng/ml (0.5-3.6) Creatine Kinase MB Ratio 1.3 (0-3.0) Troponin I < 0.015 ng/ml (0-0.045) Laboratory results per my review. Medications Administered Medications (Trade) Dose Ordered Sig/Vicki Route Start Time Stop Time Status Last Admin Dose Admin Aspirin (Aspirin Chew) 324 mg NOW STAT PO 03/26/17 13:59 03/26/17 14:01 DC 03/26/17 14:15 324 MG ECG Indication: chest pain Rate (beats per minute): 78 Rhythm: sinus rhythm Findings: no ectopy, other (normal axis) Change: Patient's EKG interpreted by me. ED Course ED COURSE: Vital signs were reviewed and showed situational hypertension The patients medical record was reviewed The above diagnostic studies were performed and reviewed. ED treatments and interventions as stated above. 1352: The patient was evaluated in room A12. A complete history and physical examination was performed. 1359: Aspirin 324mg PO 1621: Upon reevaluation, the patient is in no pain.I discussed my findings with the patient and she understands and agrees with the treatment plan. Based on the patients age, coexisting illnesses, exam and lab findings the decision to treat as an inpatient was made. The patient remained stable while under my care. The patient will be evaluated for further management. 1706: I reviewed the patient's case with Dr. Jessa REA Hospitalist. He will evaluate the patient for further management. Medical Decision Differential diagnoses includes but is not limited to acute coronary syndrome, myocardial infarction, pericarditis, pulmonary embolus, aortic dissection, pneumonia, pneumothorax, musculoskeletal, shingles, esophageal. Patient is an 82-year-old female who presents to ER for chest pain associated with shortness of breath and left arm pain. Shortness of breath has been worsening with exertion over the past 2 weeks. Chest pain was left-sided today. Referred in by PCP. History of hypertension. CBC and BMP were unremarkable. Troponin was negative. EKG was nondiagnostic. Chest x-ray without acute findings. Patient was given aspirin. She is pain-free while in the ER. Discussed with internal medicine patient will be observed overnight. Medication Reconcilliation Current Medication List: was personally reviewed by me Blood Pressure Screening Patient's blood pressure: Elevated blood pressure Blood pressure disposition: Elevated BP felt to be situational Consults Time Called: 1703 Consulting Physician: Dr. Christiansen Returned Call: 1706 I reviewed the patient's case with Dr. Jessa REA Hospitalist. He will evaluate the patient for further management. Impression Primary Impression: Precordial chest pain Additional Impression: Exertional dyspnea Scribe Attestation The scribe's documentation has been prepared under my direction and personally reviewed by me in its entirety. I confirm that the note above accurately reflects all work, treatment, procedures, and medical decision making performed by me. Departure Information Dispostion Being Evaluated By Hospitalist Referrals Gaby Mcelroy C.R.N.P (PCP) Patient Instructions My [facility] Problem Qualifiers
[2017-03-26] MEDS ORDERED: PrednisoLONE ACET 1% OP SUSP 5 ML BTL OPR SCH (21:00)
[2017-03-26 21:25] VITALS: BP 168/79; PULSE 80; TEMP 36.5; Ht 170.2 cm; Wt 84.6 kg
[2017-03-26 22:27] VITALS: BP 168/79; PULSE 80; TEMP 36.5; O2SAT 94
[2017-03-26 23:10] VITALS: BP 165/80; PULSE 69; TEMP 36.5; O2SAT 93
[2017-03-27 04:51] LABS: HEMATOCRIT 35.7 % (37-47); HEMOGLOBIN 11.6 g/dL (12.0-16.0); MEAN CELL VOLUME 89.3 fL (80-100); MEAN CORPUSCULAR HGB CONC 32.5 g/dl (32-36); MEAN PLATELET VOLUME 10.4 fL (7.4-10.4); PLATELET COUNT 202 K/uL (130-400); RED CELL DISTRIBUTION WIDTH CV 13.5 % (11.5-14.5); RED CELL DISTRIBUTION WIDTH SD 44.4 fL (36.4-46.3); WHITE BLOOD COUNT 8.13 K/uL (4.8-10.8)
[2017-03-27 05:09] LABS: BLOOD UREA NITROGEN 32 mg/dl (7-18); CALCIUM 8.4 mg/dl (8.5-10.1); CARBON DIOXIDE 29 mmol/L (21-32); CREATININE 1.49 mg/dl (0.60-1.20); GLUCOSE 92 mg/dl (70-99); POTASSIUM 4.1 mmol/L (3.5-5.1); SODIUM 139 mmol/L (136-145)
[2017-03-27 08:08] VITALS: BP 131/88; PULSE 67; TEMP 36.7; O2SAT 95
[2017-03-27 08:16] VITALS: O2SAT 95
[2017-03-27] MEDS ORDERED: DOCUSATE CALCIUM 240 MG CAP PO SCH (09:00)
[2017-03-27] MEDS ORDERED: ASPIRIN 325 MG ECTAB PO SCH (09:00)
[2017-03-27] MEDS ORDERED: METOPROLOL TARTRATE 1 MG/ML VIAL ONE (09:23)
[2017-03-27] MEDS ORDERED: DOBUTamine HCL 12.5 MG/ML 20 ML VIAL ONE (09:23)
[2017-03-27] MEDS ORDERED: ATROPINE SULFATE 0.1 MG/ML 5ML SYR ONE (09:24)
[2017-03-27 11:36] VITALS: BP 155/82; PULSE 67; TEMP 36.4; O2SAT 99
--- NOTE | 2017-03-27 11:47 | Discharge Instructions ---
Discharge Instructions Date of Service Mar 27, 2017. Admission Reason for Admission: Chest Pain Discharge Discharge Diagnosis / Problem: Chest pain Discharge Goals Goal(s): Diagnostic testing Activity Recommendations Activity Limitations: resume your previous activity Exercise/Sports Limitations: as tolerated . Instructions / Follow-Up Instructions / Follow-Up Please follow up with your primary care provider in about a week Current Hospital Diet Patient's current hospital diet: Regular Diet Discharge Diet Recommended Diet: Regular Diet Procedures Procedures Performed: Dobutamine Stress Test Chest Xray Pending Studies Studies pending at discharge: no Medical Emergencies . Who to Call and When: Medical Emergencies: If at any time you feel your situation is an emergency, please call 911 immediately. . Non-Emergent Contact Non-Emergency issues call your: Primary Care Provider Call Non-Emergent contact if: you have any medication questions . . "Provider Documentation" section prepared by Estee Levine. . VTE Core Measure Inpt VTE Proph given/why not?: SCD's, Treatment not indicated
--- NOTE | 2017-03-27 11:56 | Discharge Summary ---
Discharge Summary Date of Service Mar 27, 2017. Discharge Summary Admission Date: Mar 26, 2017 at 16:48 Discharge Date: Mar 27, 2017 Discharge Disposition: Home Principal Diagnosis: Chest Pain Procedures: Dobutamine Stress test that did not show signs of ischemia CHEST ONE VIEW PORTABLE CLINICAL HISTORY: Chest Pain dyspnea COMPARISON STUDY: 10/05/2016 FINDINGS: The bones soft tissues and hemidiaphragms are normal. The cardiomediastinal silhouette is normal. The lungs are clear. The pulmonary vasculature is normal. IMPRESSION: Negative chest. Medication Reconciliation Continued Medications: Aspirin (Aspirin Ec) 325 Mg Tab 325 MG PO QAM Cholecalciferol (Vitamin D3) 2,000 Unit Cap 1 CAP PO QAM for 90 Days, #90 CAP 3 Refills Docusate Calcium (Stool Softener) 240 Mg Cap 1 CAP PO QAM Hydrocortisone (Rectal) (Procto-Med Hc) 2.5 % Cre 1 DOSE RE DIRECTED PRN for PRN Multiple Vitamins W/ Minerals (Centrum Silver Ultra Wome) 1 Tab Tab 1 TAB PO QPM Prednisolone Acetate (Ophth) (Pred Forte 1% Oph) 1 % Melonie 1 DROPS OPR BID, #10 ML Triamterene/Hctz (Dyazide 37.5MG/25MG) Cap 1 TAB PO QAM, CAP Discharge Exam ROS Constitutional: no chills, aches, sweats or fever Respiratory: mild sob,cough, sputum, or wheezing Cardiac: no chest pain, palpitations, edema, orthopnea or lightheadedness GI: no abdominal pain, nausea, vomiting, diarrhea or constipation : no dysuria or hesitancy Extremities: no joint pain or weakness Skin: no rash All other systems reviewed and negative PE General: no distress Eyes: normal inspection, PERLL Respiratory: chest non tender, clear to auscultation, normal breath sounds, no respiratory distress, no accessory muscle use Cardiac: regular rate and rhythm, no rub or gallop, no murmur, no edema, no jvd GI/: active bowel sounds, no abd pain or tenderness, soft, non distended Extremities: normal range of motion, normal strength, non tender Neuro/Psych: alert and oriented x 3, normal mood and affect Skin: normal color, dry Hospital Course 82-year-old female with progressive decline in exercise stamina over the last few weeks, she feels like she is just generally slowing down. Over the last few days she's had some left arm pain without any other associated symptoms, and then on the day of admission had a difficult to describe left chest pain behind her breast. This was also without any associated symptoms. The pain resolved she attempted to see her primary care physician however they were full so she presented to the ER.. 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 Gonzalez and his oversight to get her through it CP - Patient was observed in telemetry - dobutamine stress echo negative for cardiac ischemia - troponins negative x4 Constipation - continue Colace therapy Chronic kidney disease stage III and unilateral kidney - held her diuretic to watch her renal function - appears to be around baseline with creat of 1.49 i personally examined pt and verified all sprague points w S Guillard [employer] feeling better now vitals noted nad breathing unlabored no pallor or icterus negative foraminal compression at Cspine, negative rotator cuff maneuvers chest/arm pain - WI ruled out, CAD highly unlikely w stress negative as well. ? msk given arm -- negative bedside testing but also feeling better now stable for home Total Time Spent: Greater than 30 minutes This includes examination of the patient, discharge planning, medication reconciliation, and communication with other providers. Discharge Instructions Please refer to the electronic Patient Visit Report (Discharge Instructions) for additional information. Follow-Up Primary care within about a week Additional Copies To Gaby Mcelroy C.R.N.P
[2017-03-27 13:12] VITALS: BP 155/82; PULSE 67; TEMP 36.4; O2SAT 99
--- NOTE | 2017-03-27 15:50 | DOBUTAMINE ECHO ---
*NOTICE TO RECEIVING [employer] This information is strictly Confidential and protected under [place] law. [place] law prohibits you from making any further disclosure of this information unless further disclosure is expressly permitted by the written consent of the person to whom it pertains or is authorized by law. A general authorization for the release of medical or other information is not sufficient for this purpose. Hospital accepts no responsibility if the information is made available to any other person, INCLUDING THE PATIENT. Interpretation Summary * Name: BAKARI CURRAN Study Date: 03/27/2017 09:04 AM BP: 152/65 mmHg * Patient Location: [facility]\S\N278\S\2 HR: 71 * : 1935 (M/d/yyyy) Gender: Female Height: 67 in * Age: 82 yrs Ethnicity: [place] Weight: 189 lb * Ordering Physician: Jose Antonio Germain * Referring Physician: Gaby Mcelroy Performed By: Gina Lin RDCS * * Reason For Study: Chest Pain * BSA: 2.0 m2 * -- Conclusions -- * 1. Negative dobutamine stress echocardiogram for myocardial ischemia at 94% of the maximum predicted heart rate. * 2. No dobutamine induced chest pain. * 3. No EKG changes. * 4. Baseline echocardiogram notes normal left ventricular systolic function and mild left ventricular hypertrophy. Procedure Details * DOBUTAMINE ECHO, CPT#[id number] * ECHO DOPPLER, CPT #[id number] * ECHO COLOR FLOW, CPT #[id number] Left Ventricle * The left ventricle is normal in size. * There is mild concentric left ventricular hypertrophy. * Ejection Fraction = 60-65%. * Left ventricular systolic function is normal. * Resting wall motion: Normal. Stress wall motion: Appropriate increase in Left ventricular systolic function and decrease in cavity size. No stress induced segmental wall motion abnormalities. Right Ventricle * The right ventricle is normal size. * The right ventricular systolic function is normal as assessed by tricuspid annular plane systolic excursion (TAPSE) (normal >1.5 cm). Atria * The left atrium is mildly dilated. * Right atrial size is normal. * No ASD detected; PFO is not assessed. Mitral Valve * The mitral valve anatomy is normal. * There is no mitral valve stenosis. * There is mild to moderate mitral regurgitation. Tricuspid Valve * The tricuspid valve anatomy is normal. * There is no tricuspid stenosis. * There is mild tricuspid regurgitation. Aortic Valve * The aortic valve is trileaflet. * The aortic valve opens well. * No hemodynamically significant valvular aortic stenosis. * There is no significant aortic regurgitation. Pulmonic Valve * The pulmonary valve is not well seen, but the Doppler examination is normal without significant regurgitation or stenosis. Great Vessels * The aortic root is normal size. * The pulmonary is not well visualized. Pericardium * There is no pericardial effusion. Stress Parameters * Normal baseline electrocardiogram. * Stress ECG: No ST changes. No arrhythmias. * The stress portion of this study was personally supervised by the undersigned interpreting physician. * Rest heart rate was '71' BPM. * Rest blood pressure was '152/65' * Maximum heart rate achieved was 130 bpm. * Maximum heart rate was 94 % of maximum age-predicted heart rate. * Maximum blood pressure was '156/70' * Maximum Dobutamine infusion rate was '5' mcg/kg/min. * A total of 0.25 mg of intravenous Atropine was used to supplement Dobutamine for heart rate response. * Dobutamine infusion was terminated due to achieving target heart rate * A total of 5 mg of IV Metoprolol was administered to reverse Dobutamine-induced tachycardia. MMode 2D Measurements and Calculations IVSd 1.2 cm IVSs 1.7 cm LVIDd 4.4 cm LVIDs 2.5 cm LVPWd 1.3 cm LVPWs 1.8 cm IVS/LVPW 0.89 FS 43.7 % EDV(Teich) 87.4 ml ESV(Teich) 21.7 ml EF(Teich) 75.2 % EDV(cubed) 84.8 ml ESV(cubed) 15.1 ml EF(cubed) 82.2 % % IVS thick 41.8 % % LVPW thick 31.3 % LV mass(C)d 206.3 grams LV mass(C)dI 104.5 grams/m\S\2 LV mass(C)s 160.6 grams LV mass(C)sI 81.4 grams/m\S\2 SV(Teich) 65.7 ml SI(Teich) 33.3 ml/m\S\2 SV(cubed) 69.7 ml SI(cubed) 35.3 ml/m\S\2 Ao root diam 2.5 cm Ao root area 5.0 cm\S\2 ACS 1.7 cm LA dimension 3.7 cm LA/Ao 1.5 LVOT diam 2.0 cm LVOT area 3.2 cm\S\2 LVAd ap4 18.3 cm\S\2 LVLd ap4 7.3 cm EDV(MOD-sp4) 41.2 ml EDV(sp4-el) 38.9 ml LVAs ap4 9.5 cm\S\2 LVLs ap4 6.5 cm ESV(MOD-sp4) 14.0 ml ESV(sp4-el) 11.9 ml EF(MOD-sp4) 66.1 % EF(sp4-el) 69.4 % LVAd ap2 17.9 cm\S\2 LVLd ap2 6.8 cm EDV(MOD-sp2) 41.4 ml EDV(sp2-el) 39.8 ml LVAs ap2 9.0 cm\S\2 LVLs ap2 5.9 cm ESV(MOD-sp2) 13.5 ml ESV(sp2-el) 11.6 ml EF(MOD-sp2) 67.5 % EF(sp2-el) 70.9 % LVLd %diff -7.50 % EDV(MOD-bp) 43.1 ml LVLs %diff -10.10 % ESV(MOD-bp) 14.4 ml EF(MOD-bp) 66.7 % SV(MOD-sp4) 27.2 ml SI(MOD-sp4) 13.8 ml/m\S\2 SV(MOD-sp2) 27.9 ml SI(MOD-sp2) 14.1 ml/m\S\2 SV(MOD-bp) 28.7 ml SI(MOD-bp) 14.6 ml/m\S\2 SV(sp4-el) 27.0 ml SI(sp4-el) 13.7 ml/m\S\2 SV(sp2-el) 28.2 ml SI(sp2-el) 14.3 ml/m\S\2 Doppler Measurements and Calculations MV E max janneth 128.3 cm/sec MV A max janneth 149.9 cm/sec MV E/A 0.86 MV V2 max 171.7 cm/sec MV max PG 11.8 mmHg MV V2 mean 98.7 cm/sec MV mean PG 4.5 mmHg MV V2 VTI 48.9 cm MV P1/2t max janneth 152.3 cm/sec MV P1/2t 96.5 msec MVA(P1/2t) 2.3 cm\S\2 MV dec slope 462.1 cm/sec\S\2 MV dec time 0.33 sec Ao V2 max 147.1 cm/sec Ao max PG 8.7 mmHg Ao max PG (full) 3.7 mmHg CARLOS ENRIQUE(V,A) 2.4 cm\S\2 CARLOS ENRIQUE(V,D) 2.4 cm\S\2 LV V1 max PG 5.0 mmHg LV V1 max 111.8 cm/sec PA V2 max 88.0 cm/sec PA max PG 3.1 mmHg PI max janneth 212.2 cm/sec PI max PG 18.0 mmHg PI dec slope 218.9 cm/sec\S\2 PI P1/2t 284.0 msec TR max janneth 270.9 cm/sec
== END 2017-03-27 13:40 | disposition home or self-care (01) ==
LOC: C.EDB 13:37 → C.MED 16:48 → ENRESERV 20:49
PROVIDERS: ADMIT Internal Medicine; ATTEND Family Medicine
DX: R07.9 Chest pain, unspecified (principal); I10 Essential (primary) hypertension; Z86.73 Personal history of transient ischemic attack (TIA), and cerebral infarction without residual deficits; Z79.82 Long term (current) use of aspirin; Z98.51 Tubal ligation status; Z90.5 Acquired absence of kidney; Z88.8 Allergy status to other drugs, medicaments and biological substances; Z88.1 Allergy status to other antibiotic agents; Z88.2 Allergy status to sulfonamides; Z80.9 Family history of malignant neoplasm, unspecified; Z82.49 Family history of ischemic heart disease and other diseases of the circulatory system; Z83.6 Family history of other diseases of the respiratory system

== ENCOUNTER → 2017-05-21 | Outpatient (CLI) | payer OTHER ==
[~2017-05-21] MED LIST changes: +DOCU-94 PO; +PSYL0.524 PO; -TOBRSUS
[2017-05-21 13:40] LABS: BASO % 0.2 %; BASO ABS # 0.02 K/uL (0-0.2); EOS % 5.3 %; EOS ABS # 0.43 K/uL (0-0.5); HEMATOCRIT 37.5 % (37-47); HEMOGLOBIN 12.5 g/dL (12.0-16.0); IG# 0.02 K/uL (0.00-0.02); LYMPH % 29.6 %; LYMPH ABS # 2.38 K/uL (1.2-3.4); MEAN CELL VOLUME 88.7 fL (80-100); MEAN CORPUSCULAR HEMOGLOBIN 29.6 pg (25-34); MEAN CORPUSCULAR HGB CONC 33.3 g/dl (32-36); MEAN PLATELET VOLUME 10.2 fL (7.4-10.4); MONO ABS # 0.56 K/uL (0.11-0.59); NEUT % 57.7 %; NEUT ABS # 4.63 K/uL (1.4-6.5); PLATELET COUNT 233 K/uL (130-400); RED CELL DISTRIBUTION WIDTH SD 45.2 fL (36.4-46.3); WHITE BLOOD COUNT 8.04 K/uL (4.8-10.8)
== END | disposition home or self-care (01) ==
LOC: C.LABPVFM 11:32
PROVIDERS: ATTEND Nurse Practitioner
DX: K62.5 Hemorrhage of anus and rectum (principal)

== ENCOUNTER → 2017-05-25 | Day surgery (SDC) | payer OTHER ==
[2017-05-24 07:40] VITALS: Ht 162.6 cm; Wt 81.8 kg
[~2017-05-25] VITALS: Ht 162.6 cm; Wt 81.8 kg
[~2017-05-25] MED LIST changes: -DOCU1CAP78 PO; +LIDOCAINE HCL 2% 2 ML VIAL (20MG/ML) ONE; -PRED1SUS3 OPR; +PROPOFOL IV EMULSION 10 MG/ML 20 ML VIAL IV ONE
--- NOTE | 2017-05-25 10:32 | Endo History and Physical ---
History & Physical Date of Service: May 25, 2017. Chief Complaint: rectal bleeding Referring Physician: Gaby SANDOVAL History of Present Illness 82 yo presenting for evaluation of rectal bleeding for colonoscopy No weight loss, anemia, or pain. Past Medical History Arthritis, Hypertension, Kidney Disease Past Surgical History Hx Cardiac Surgery: No Hx Abdominal Surgery: Yes (TUBAL LIGATION) Hx Post-Op Nausea and Vomiting: No Hx Cancer Surgery: No Hx Thoracic Surgery: No Hx Orthopedic: No Hx Urinary Tract Surgery: Yes (LEFT NEPHRECTOMY) Family History None Social History Smoking Status: Never Smoker Hx Substance Use: No Hx Alcohol Use: No Allergies Coded Allergies: Allopurinol (Verified Allergy, Unknown, ENDED UP IN THE HOSPITAL-UNSURE OF SYMPTOMS, 05/24/17) Simvastatin (Verified Allergy, Unknown, SORE MUSCLES, 05/24/17) Sulfamethoxazole w/Trimethoprim (Verified Allergy, Unknown, UNKNOWN, ) Lisinopril (Verified Adverse Reaction, Mild, cough, 05/24/17) HERNANDEZ Inhibitors (Verified Adverse Reaction, Unknown, COUGH, 05/24/17) Atorvastatin (Verified Adverse Reaction, Unknown, SORE MUSCLES, 05/24/17) Meperidine (Verified Adverse Reaction, Unknown, COULD NOT WAKE UP AFTER, ) Current Medications Reported Home Medications Medications Dose Route/Sig Max Daily Dose Days Date Category Dose Instructions Metamucil (Psyllium) 0.52 Gm Cap 1 Dose PO QAM 05/24/17 Reported Colace (Docusate Sodium) 100 Mg Cap 1 Cap PO BID 05/24/17 Reported Aspirin Ec (Aspirin) 325 Mg Tab 325 Mg PO QAM 02/25/16 Reported Vitamin D3 (Cholecalciferol) 2,000 Unit Cap 1 Cap PO QAM 90 02/25/16 Reported Centrum Silver Ultra Wome (Multiple Vitamins W/ Minerals) 1 Tab Tab 1 Tab PO QPM 02/25/16 Reported Procto-Med Hc (Hydrocortisone (Rectal)) 2.5 % Cre 1 Dose RE DIRECTED PRN 02/25/16 Reported ON HOLD UNTIL AFTER PROCEDURE Dyazide 37.5MG/25MG (Triamterene/HCTZ) Cap 1 Tab PO QAM 02/25/16 Reported Vital Signs Weight (Kilograms): 81.82 Height (Feet): 5 Height (Inches): 4 Physical Exam General Appearance: WD/WN, no apparent distress Respiratory/Chest: Respiratory effort: no dyspnea Auscultation: breath sounds normal, CTA except as noted Cardiovascular: Apical Impulse: not displaced Heart Auscultation: RRR, normal S1, normal S2 Abdomen: Inspection & Palpation: soft, non-distended, no tenderness, guarding & rebound Assessment and Plan 82 yo presenting for evaluation of rectal bleeding for colonoscopy
--- NOTE | 2017-05-25 11:12 | GI REPORT ---
Procedure Date: 05/25/2017 10:32 AM Procedure: Colonoscopy Indications: Rectal bleeding Medicines: Monitored Anesthesia Care Complications: No immediate complications. Estimated blood loss: None. Estimated Blood Loss: Estimated blood loss: none. Procedure: Pre-Anesthesia Assessment: - Pre-Anesthesia Assessment: - Prior to the procedure, a History and Physical was performed, and patient medications, allergies and sensitivities were reviewed. The patient's tolerance of previous anesthesia was reviewed. Please see LYY[facility] for complete details. - The risks and benefits of the procedure and the sedation options and risks were discussed with the patient. All questions were answered and informed consent was obtained. - Patient identification and proposed procedure were verified prior to the procedure by the physician and the nurse. The procedure was verified in the pre-procedure area in the procedure room. After obtaining informed consent, the endoscope was passed carefully and meticuously under direct vision and only advanced when the lumen was clearly identified, C02 insuflation was utilized throughout the entirity of the procedure. Throughout the procedure, the patient's blood pressure, pulse, and oxygen saturations were monitored continuously. After I obtained informed consent, the scope was passed under direct vision. Throughout the procedure, the patient's blood pressure, pulse, and oxygen saturations were monitored continuously. The scope was introduced through the anus and advanced to the terminal ileum, with identification of the appendiceal orifice and IC valve. The colonoscopy was performed without difficulty. The patient tolerated the procedure well. The quality of the bowel preparation was good. Findings: Multiple small and large-mouthed diverticula were found in the sigmoid colon. Internal hemorrhoids were found during retroflexion. The exam was otherwise without abnormality on direct and retroflexion views. Impression: - Diverticulosis in the sigmoid colon. - Internal hemorrhoids. - The examination was otherwise normal on direct and retroflexion views. - No specimens collected. Recommendation: - Discharge patient to home (with escort). - Return to referring physician as previously scheduled. - Bleeding etiology likely diverticular or hemorrhoidal in nature. Pineda Ang MD 05/25/2017 11:12:19 AM This report has been signed electronically. Note Initiated On: 05/25/2017 10:32 AM I attest to the content of the Intraoperative Record and orders documented therein, exceptions below
--- NOTE | 2017-05-25 11:14 | Discharge Instructions ---
Endoscopy Patient Instructions Date / Procedure(s) Performed May 25, 2017. Colonoscopy Allergy Information Coded Allergies: Allopurinol (Verified Allergy, Unknown, ENDED UP IN THE HOSPITAL-UNSURE OF SYMPTOMS, 05/24/17) Simvastatin (Verified Allergy, Unknown, SORE MUSCLES, 05/24/17) Sulfamethoxazole w/Trimethoprim (Verified Allergy, Unknown, UNKNOWN, ) Lisinopril (Verified Adverse Reaction, Mild, cough, 05/24/17) HERNANDEZ Inhibitors (Verified Adverse Reaction, Unknown, COUGH, 05/24/17) Atorvastatin (Verified Adverse Reaction, Unknown, SORE MUSCLES, 05/24/17) Meperidine (Verified Adverse Reaction, Unknown, COULD NOT WAKE UP AFTER, ) Discharge Date / Findings May 25, 2017. Internal hemorrhoids Diverticulosis No bleeding Otherwise normal Medication Instructions Stopped Medication(s): last ASA Sunday Provider Instructions Activity Restrictions - No exercising or heavy lifting for 24 hours. - Do not drink alcohol the day of the procedure. - Do not drive a car or operate machinery until the day after the procedure. - Do not make any important decisions or sign important papers in 24 hours after the procedure. Following Day: - Return to full activity which may include returning to work/school. Diet Start your diet with liquids and light foods (jello, soup, juice, toast). Then eat your usual diet if not nauseated. Treatment For Common After Affects For mild abdominal pain, bloating, or excessive gas: - Rest - Eat lightly - Lie on right side Follow-Up Information Follow-up with Gaby SANDOVAL as scheduled Anesthesia Information What You Should Know You have had a procedure that required some medicine to reduce anxiety and discomfort. This treatment is called moderate sedation. After receiving the treatment, you may be sleepy, but you will be able to breathe on your own. The effects of the treatment may last for several hours. Follow these instructions along with Activity/Diet recommendations noted above: * Do NOT do anything where dizziness or clumsiness would be dangerous. * Rest quietly at home today, then you can be up and about tomorrow. * Have a responsible person stay with you the rest of today. * You may have had an I.V. today. If so, you may take the dressing off later today. Recommendations Call your doctor if: * Trouble breathing * Continuous vomiting for more than 24 hours * Temperature above 101 degrees * Severe abdominal pain or bloating * Pain not relieved by pain medicine ordered * There is increased drainage or redness from any incision * A large amount of rectal bleeding greater than 2-3 tablespoons. (If you had a polyp/s removed or have hemorrhoids, a small amount of blood - from the rectum is to be expected.) * You have any unanswered questions or concerns. IN THE EVENT OF A SERIOUS EMERGENCY, GO TO THE NEAREST EMERGENCY ROOM Your discharge instructions were prepared by provider Pineda Ang. Patient Instructions Signature Page Marjorie Rajput Patient (or Guardian) Signature/Date: I have read and understand the instructions given to me by my caregivers. Caregiver/RN/Doctor Signature/Date: The above-named patient and/or guardian has received patient instructions on this date. + Original Patient Signature Page (only) stays with chart. Please make copy for patient.
[2017-05-25 11:45] VITALS: BP 152/77; PULSE 64; O2SAT 100
--- NOTE | 2017-05-25 11:51 | Anesthesiology Progress Note ---
Anesthesia Post Op Note Date & Time May 25, 2017 at 11:51 Vital Signs Pain Intensity: 0 Vital Signs Past 12 Hours Date Time Temp Pulse Resp B/P (MAP) Pulse Ox O2 Delivery O2 Flow Rate FiO2 05/25/17 11:45 64 16 152/77 (102) 100 Room Air 05/25/17 11:30 66 16 157/79 (105) 98 Room Air 05/25/17 11:15 70 16 126/71 (89) 97 Room Air 05/25/17 10:30 36.4 76 20 160/78 (105) 96 Room Air Notes Mental Status: alert / awake / arousable, participated in evaluation Pt Amnestic to Procedure: Yes Nausea / Vomiting: adequately controlled Pain: adequately controlled Airway Patency, RR, SpO2: stable & adequate BP & HR: stable & adequate Hydration State: stable & adequate Anesthetic Complications: no major complications apparent
== END | disposition home or self-care (01) ==
LOC: C.GI 10:00
PROVIDERS: ATTEND Internal Medicine
DX: K62.5 Hemorrhage of anus and rectum (principal); K57.30 Diverticulosis of large intestine without perforation or abscess without bleeding; K64.8 Other hemorrhoids; I12.9 Hypertensive chronic kidney disease with stage 1 through stage 4 chronic kidney disease, or unspecified chronic kidney disease; Z98.51 Tubal ligation status; Z90.5 Acquired absence of kidney; Z88.6 Allergy status to analgesic agent; Z88.8 Allergy status to other drugs, medicaments and biological substances; Z88.2 Allergy status to sulfonamides; N18.3 Chronic kidney disease, stage 3 (moderate); Z98.41 Cataract extraction status, right eye; Z98.42 Cataract extraction status, left eye; Z86.73 Personal history of transient ischemic attack (TIA), and cerebral infarction without residual deficits; Z79.899 Other long term (current) drug therapy; Z79.82 Long term (current) use of aspirin

== ENCOUNTER 2018-08-10 08:43 | Inpatient (IN) ==
[2018-08-10] MEDS ORDERED: ONDANSETRON INJ 2 MG/ML 2 ML VIAL IV STA (09:07)
[2018-08-10] MEDS ORDERED: SODIUM CHLORIDE 0.9% 500 ML IV SCH (09:15)
[2018-08-10] MEDS ORDERED: cefTRIAXone SODIUM 2,000 MG in DEXTROSE 5% 50 ML IV STA (09:21)
--- NOTE | 2018-08-10 09:26 | XRay Report ---
XR chest 1V portable CLINICAL HISTORY: weakness COMPARISON STUDY: Chest radiograph 08/07/2018. FINDINGS: Lung volumes are normal. There is no pneumothorax or pleural effusion. Linear left basilar opacity suggest atelectasis or scarring. There is no evidence for pulmonary edema or pneumonia. Cardi omediastinal silhouette is stable. Appearance of the chest is unchanged. IMPRESSION: No acute cardiopulmonary findings. Electronically signed by: Kareem Araujo M.D. 08/10/2018 9:25 AM
[2018-08-10 09:32] LABS: Basophils # (auto) 0.01 K/uL (0-0.2); Basophils % (auto) 0.1 %; Eosinophils # (auto) 0.14 K/uL (0-0.5); Eosinophils % (auto) 1.4 %; Hematocrit (blood only) 36.6 % (37-47); Hemoglobin 12.7 g/dL (12.0-16.0); Immature Granulocytes # (auto) 0.03 K/uL (0.00-0.02); Immature Granulocytes % (auto) 0.3 %; Lymphocytes # (auto) 1.84 K/uL (1.2-3.4); Mean Corpuscular Hgb Conc 34.7 g/dL (32-36); Mean Corpuscular Volume 86.5 fL (80-100); Mean Platelet Volume 10.2 fL (7.4-10.4); Monocytes # (auto) 0.72 K/uL (0.11-0.59); Monocytes % (auto) 7.5 %; Neutrophils # (auto) 6.92 K/uL (1.4-6.5); Neutrophils % (auto) 71.7 %; Platelet Count 214 K/uL (130-400); RDW Coefficient of Variation 13.6 % (11.5-14.5); RDW Standard Deviation 43.1 fL (36.4-46.3); Red Blood Count 4.23 M/uL (4.2-5.4); White Blood Count 9.66 K/uL (4.8-10.8)
[2018-08-10 09:48] LABS: Alanine Aminotransferase 20 U/L (12-78); Albumin Level 3.4 gm/dl (3.4-5.0); Aspartate Aminotransferase 17 U/L (15-37); BUN Creatinine Ratio 16.9 (10-20); Blood Urea Nitrogen 25 mg/dl (7-18); Calcium 8.9 mg/dl (8.5-10.1); Carbon Dioxide 26 mmol/L (21-32); Chloride 99 mmol/L (98-107); Creatinine Clr Calc Pharmacy 30.8 ml/min; Est GFR (African American) 37.3; Est GFR (Non-African American) 32.2; Glucose 105 mg/dl (70-99); Potassium 3.7 mmol/L (3.5-5.1); Sodium 134 mmol/L (136-145)
[2018-08-10] MEDS ORDERED: SODIUM CHLORIDE 0.9% 500 ML IV ONE (09:49)
[2018-08-10 09:59] LABS: Albumin Globulin Ratio 0.9 (0.9-2); Alkaline Phosphatase 79 U/L (45-117); Bilirubin,Total 0.4 mg/dl (0.2-1); Creatine Kinase 125 U/L (26-192); Globulin 3.8 gm/dl (2.5-4.0); Total Protein 7.2 gm/dl (6.4-8.2); Troponin I < 0.015 ng/ml (0-0.045)
--- NOTE | 2018-08-10 10:19 | CT Scan Report ---
CT OF THE HEAD WITHOUT CONTRAST CLINICAL HISTORY: Weakness. COMPARISON STUDY: Head CT September 11, 2013. CT DOSE: 537.48 mGy.cm TECHNIQUE: Helical axial images of the head were obtained without IV contrast. Automated exposure con trol was utilized for the study. A dose lowering technique was utilized adhering to the principles o f ALARA. FINDINGS: No acute intracranial hemorrhage, midline shift or mass effect is present. Ventricular syst em is unremarkable. The basilar cisterns are patent. There are no extra-axial collections. A hypodens ity within left basal ganglia is unchanged. This may reflect a prominent perivascular space or old la cunar infarct. Mild white matter hypodensity suggests small vessel disease. There are no findings to suggest acute dural sinus thrombosis or acute territorial infarct. There are no significant calvarial abnormalities. Visualized portions of the sinuses and mastoid air cells are clear. IMPRESSION: No acute intracranial findings. Electronically signed by: Kareem Araujo M.D. 08/10/2018 10:18 AM
[2018-08-10] MEDS ORDERED: LORazepam 0.5 MG/1 ML VIAL IV STA (10:32)
[2018-08-10] MEDS ORDERED: ASPIRIN CHEW 324 MG PO STA (10:33)
[2018-08-10] MEDS ORDERED: METOPROLOL TARTRATE 1 MG/ML VIAL IV PRN (10:33)
[2018-08-10] MEDS ORDERED: MAGNESIUM SULFATE / D5W 1 GM/100 ML BAG IV ONE (10:33)
[2018-08-10] MEDS ORDERED: HydrALAZINE HCL 20 MG/ML VIAL IV ONE (10:36)
[2018-08-10 10:54] LABS: Appearance Urine Clear (Clear); Bilirubin Urine Negative (Negative); Blood Urine Negative (Negative); Color Urine Yellow; Glucose Urine UA Negative (Negative); Ketones Urine Negative (Negative); Leukocyte Esterase Urine Negative (Negative); Nitrite Urine Negative (Negative); Protein Urine Negative (Negative); Specific Gravity Urine 1.007 (1.000-1.030); Urobilinogen Urine Negative (Negative); pH Urine 7.5 (4.5-7.5)
[2018-08-10] MEDS ORDERED: ASPIRIN 81 MG CHEW ONE (11:08)
--- NOTE | 2018-08-10 11:17 | History & Physical Report ---
Date of Service August 10, 2018 Assessment & Plan (1) Anxiety state: IV Ativan administered in the ED. Provide supportive care. Start Xanax 0.25 mg twice a day scheduled dosing Present on Admission?: Yes (2) Accelerated hypertension: Probably due to anxiety state. Continue Dyazide. Treat anxiety. Use IV hydralazine as needed Present on Admission?: Yes (3) Acute Lyme disease: Recent IgM test positive. Discontinue not doxycycline due to side effects. Administer IV Rocephin 2 g daily. Consult infectious disease (4) Doxycycline adverse reaction: Causing nausea and anorexia. Will discontinue and administer IV Rocephin until seen by infectious disease Present on Admission?: Yes (5) Generalized weakness: Hydration. Treat anxiety. Control blood pressure. 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 Monitor intake and output. Serial lab studies. Avoid IV contrast (7) Peripheral neuropathy: Chronic. (8) DVT prophylaxis: Low-dose Lovenox subcu History of Present Illness Chief Complaint: 6 days of generalized weakness, nausea, anorexia Primary Care Provider: LORI Moe 83-year-old female with anxiety state and doxycycline side effects with nausea and anorexia. She is not sleeping and appears to be very anxious. She was recently found to have IgM positive Lyme disease and has been taking oral doxycycline that is causing some GI symptoms. She presents to the ED today because she is just exhausted from not sleeping and she is not eating well either. She has generalized weakness and chronic paresthesia of both lower extremities from chronic peripheral neuropathy. She recently had an IgM Lyme test that was positive. Western blot is pending. She has been taking oral doxycycline. Head CT scan is negative for any acute changes. This does not appear to be an acute [employer] event. She appears to have accelerated hypertension due to her anxiety state accompanied by doxycycline side effects. Recent IgM positive Lyme test will be evaluated by infectious disease consultation. OT and PT assessments requested. Will administer Rocephin 2 g IV daily to replace doxycycline at this time. Allergies Allergy/AdvReac Type Severity Reaction Status Date / Time allopurinol Allergy Unknown ENDED UP Verified 08/10/18 09:42 IN THE HOSPITAL-UNSURE OF SYMPTOMS Bactrim Allergy Unknown UNKNOWN Verified 05/25/17 07:33 simvastatin Allergy Unknown SORE Verified 08/10/18 09:42 MUSCLES sulfamethoxazole Allergy Unknown UNKNOWN Verified 08/10/18 09:42 trimethoprim Allergy Unknown UNKNOWN Verified 08/10/18 09:42 HERNANDEZ Inhibitors AdvReac Unknown COUGH Verified 08/10/18 09:42 atorvastatin AdvReac Unknown SORE Verified 08/10/18 09:42 MUSCLES meperidine AdvReac Unknown COULD NOT Verified 08/10/18 09:42 WAKE UP AFTER Home Medications Home Medications Medication Instructions Recorded Confirmed Type aspirin 325 mg tablet,delayed 325 mg PO QAM tab 08/02/18 08/10/18 History release cholecalciferol (vitamin D3) 2,000 2,000 unit PO DAILY tab 08/02/18 08/10/18 History unit tablet docusate sodium 250 mg capsule 250 mg PO QAM cap 08/02/18 08/10/18 History hydrocortisone 2.5 % topical cream 1 applic OK DIRECTED PRN #1 gm 08/05/18 08/10/18 History with perineal applicator multivitamin tablet 1 tab PO DAILY 08/05/18 08/10/18 History psyllium husk 3.4 gram/5.4 gram 1 tbs PO DAILY 08/05/18 08/10/18 History oral powder Saccharomyces boulardii [Florastor] 250 mg PO BID #42 cap 08/07/18 08/10/18 Rx doxycycline hyclate 100 mg PO BID 08/10/18 08/10/18 History triamterene-hydrochlorothiazid 1 cap PO QAM 08/10/18 08/10/18 History Past Med/Surg History Medical History Vitamin D deficiency Unsteady gait Neuropathic pain Mixed hyperlipidemia Gout Fatigue (Chronic) Erosive osteoarthritis of right hand CKD (chronic kidney disease), stage III Family History Other Family history non-contributory Social History marital status: Current Living Situation: Spouse current occupational status: retired Feels Safe at Home: Yes Smoking Status: Never smoker Review of Systems Review of Systems: Constitutional-no fever or chills. Anxiety, weakness, insomnia, anorexia ENT-no blurred vision, no double vision, no epistaxis, no sore throat Respiratory-no cough, no wheezing, no shortness of breath Cardiac-no palpitations, no chest pain, no syncope GI-nausea. No vomiting. No diarrhea -no urinary retention, no urinary incontinence, no dysuria, no hematuria Musculoskeletal-no joint pain, no muscle tenderness Skin-no bruising, no rashes, no pruritus Neuro-generalized weakness. Bilateral lower extremity paresthesia which is chronic from chronic peripheral neuropathy Psych-anxiety state Physical Exam Physical Exam: General-alert and oriented x3. Complaining of generalized weakness HEENT-head atraumatic and normocephalic, TMs intact bilaterally, pupils equal and reactive to light, extraocular muscles intact Neck-no lymphadenopathy or thyromegaly, trachea midline Chest-clear to auscultation percussion. No rales wheezing or rhonchi Cardiac-regular rate and rhythm, normal S1 and S2, no murmurs Abdomen-normal bowel sounds, nontender, no hepatosplenomegaly Extremities-no cyanosis, clubbing, or edema Neuro-cranial nerves II through XII intact, motor and sensory function within normal limits, strength symmetrical with generalized weakness and no focal deficits Psych-anxiety state Results & Data Vital Signs (Past 12 Hours) Vital Signs Temp Pulse Pulse Resp BP BP Pulse Ox 08/10/18 10:44 66 18 193/83 H 98 08/10/18 09:40 98 08/10/18 08:49 37.4 C 72 20 211/79 H 98 Laboratory Results 08/10/18 09:21 08/10/18 09:21 PG Care Time/CCT Total # of Minutes Spent Total Time Spent with Patient: Total time spent is greater than 50% in coordination of care (as documented) at patient's floor/unit and/or counseling patient:
[2018-08-10] MEDS ORDERED: ALUMINUM/MAGNESIUM SUSP 30 ML UDC PO PRN (12:17)
[2018-08-10] MEDS ORDERED: HydrALAZINE HCL 20 MG/ML VIAL IV PRN (12:17)
[2018-08-10] MEDS ORDERED: ZOLPIDEM TARTRATE 5 MG TAB PO PRN (12:17)
[2018-08-10] MEDS ORDERED: ONDANSETRON INJ 2 MG/ML 2 ML VIAL IV PRN (12:17)
--- NOTE | 2018-08-10 12:21 | XRay Report ---
[facility] CLINICAL HISTORY: Pt c/o kidney removal??? metal in body??? COMPARISON STUDY: CT of the abdomen and pelvis November 28, 2014. FINDINGS: The bowel gas pattern is normal. Numerous surgical dwight are unchanged since CT of 2014. IMPRESSION: 1. No evidence for a bowel obstruction. 2. No change in multiple surgical dwight since CT of November 28, 2014. Electronically signed by: Kareem Araujo M.D. 08/10/2018 12:19 PM
[2018-08-10] MEDS: SODIUM CHLORIDE 0.9% 1000ML 1,000 ML IV SCH ×2 (12:32→23:55)
[2018-08-10] MEDS: SUCRALFATE 1 GM/10 ML UDC PO SCH ×3 (12:48→20:53)
[2018-08-10 13:25] LABS: Partial Thromboplastin Ratio 0.9; Partial Thromboplastin Time 25.4 Seconds (21.0-31.0); Prothrombin Time 10.3 Seconds (9.0-12.0)
--- NOTE | 2018-08-10 14:02 | Emergency Department Note ---
Entered by Aileen Savage acting as a scribe for History of Present Illness General Chief complaint: Illness Stated complaint: RECENTLY DIAGNOSED WITH LYMES Time Seen by Provider: 08/10/18 08:53 Source: patient History of Present Illness Onset (ago): day(s) 3 Location: abdomen Pain Consistency: + other (persistent) Maximum Pain Intensity: 0 Quality: + other (nausea) Exacerbated By: + medication (Doxycycline) Associated symptoms: + denies other symptoms (abdominal pain, diarrhea) and + other (shaking, weakness, insomnia) The patient is a 83 year old female that is presenting to the Emergency Room with complaints of persistent nausea that has worsened over the past 3 days after being diagnosed with Lyme disease. The patient notes that she feels sick all over and has been gagging without active vomiting. She denies any abdominal pain. She notes that she feels weak and shaky. She states that she has been unable to sleep secondary to her symptoms. She denies any diarrhea, noting that she is constipated at baseline. She states that she had a normal bowel movement this morning. The patient reports that she took her blood pressure medication on the way to the Emergency Room this morning. She notes that she has been taking Doxycycline with food since being diagnosed with Lyme 3 days ago. She states that she has taken Doxycycline in the past without any issues. The patients son notes that the patient was diagnosed with Lyme disease 8 years ago and then again 3 years ago. The patient denies being followed by infectious disease. Home Medications Home Medications Medication Instructions Recorded Confirmed Type aspirin 325 mg tablet,delayed 325 mg PO QAM tab 08/02/18 08/10/18 History release cholecalciferol (vitamin D3) 2,000 2,000 unit PO DAILY tab 08/02/18 08/10/18 History unit tablet docusate sodium 250 mg capsule 250 mg PO QAM cap 08/02/18 08/10/18 History hydrocortisone 2.5 % topical cream 1 applic [place] DIRECTED PRN #1 gm 08/05/18 08/10/18 History with perineal applicator multivitamin tablet 1 tab PO DAILY 08/05/18 08/10/18 History psyllium husk 3.4 gram/5.4 gram 1 tbs PO DAILY 08/05/18 08/10/18 History oral powder Saccharomyces boulardii [Florastor] 250 mg PO BID #42 cap 08/07/18 08/10/18 Rx doxycycline hyclate 100 mg PO BID 08/10/18 08/10/18 History triamterene-hydrochlorothiazid 1 cap PO QAM 08/10/18 08/10/18 History Allergies Allergy/AdvReac Type Severity Reaction Status Date / Time allopurinol Allergy Unknown ENDED UP Verified 08/10/18 09:42 IN THE HOSPITAL-UNSURE OF SYMPTOMS Bactrim Allergy Unknown UNKNOWN Verified 05/25/17 07:33 sulfamethoxazole Allergy Unknown UNKNOWN Verified 08/10/18 09:42 trimethoprim Allergy Unknown UNKNOWN Verified 08/10/18 09:42 HERNANDEZ Inhibitors AdvReac Mild COUGH Verified 08/10/18 12:20 atorvastatin AdvReac Mild SORE Verified 08/10/18 12:20 MUSCLES meperidine AdvReac Mild COULD NOT Verified 08/10/18 12:20 WAKE UP AFTER simvastatin AdvReac Mild SORE Verified 08/10/18 12:20 MUSCLES Past Med/Surg History Medical History Peripheral neuropathy (Chronic) Generalized weakness (Acute) Doxycycline adverse reaction (Acute) Accelerated hypertension (Acute) Anxiety state (Acute) Vitamin D deficiency Unsteady gait Neuropathic pain Mixed hyperlipidemia Gout Fatigue (Chronic) Erosive osteoarthritis of right hand CKD (chronic kidney disease), stage III Family History Other Family history non-contributory Social History Preferred Language: Citizen Of [place] Communication Ability: Effective Beliefs That Will Affect Care: None marital status: Current Living Situation: Spouse current occupational status: retired Feels Safe at Home: Yes Smoking Status: Never smoker Second Hand Exposure: No Hx Alcohol Use: No Hx Substance Use: No Review of Systems See HPI for pertinent positives & negatives. and A total of 10 systems reviewed and were otherwise negative Physical Exam Vital Signs Vital Signs - 24 hr 08/10/18 08:49 08/10/18 09:40 08/10/18 10:44 Temperature 37.4 C Temperature Source Oral Sepsis Recent Fever Within 48 Hours No Sepsis Action Taken by Nursing No Action Required Pulse Rate 72 Pulse Rate [Apical] 66 Respiratory Rate 20 18 Blood Pressure 211/79 H Blood Pressure [Left Arm] 193/83 H Blood Pressure Mean 123 Blood Pressure Mean [Left Arm] 119 Pulse Oximetry 98 98 98 Oxygen Delivery Method Room Air Room Air GENERAL: Awake, alert, well-appearing, in no acute distress HENT: Normocephalic, atraumatic. Oropharynx unremarkable. EYES: Normal conjunctiva. Sclera non-icteric. NECK: Supple. No nuchal rigidity. FROM. No JVD. RESPIRATORY: Clear to auscultation. CARDIAC: Regular rate, normal rhythm. Extremities warm and well perfused. Pulses equal. ABDOMEN: Soft, non-distended. No tenderness to palpation. No rebound or guarding. No masses. RECTAL: Deferred. MUSCULOSKELETAL: Chest examination reveals no tenderness. The back is symmetrical on inspection without obvious abnormality. There is no CVA tenderne ss to palpation. No joint edema. LOWER EXTREMITIES: Calves are equal size bilaterally and non-tender. No edema. No discoloration. NEURO: Normal sensorium. No sensory or motor deficits noted. SKIN: No rash or jaundice noted. Course 0854:The patient was evaluated in room A12B. A complete history and physical examination was performed. 1025: I updated the patient on her current lab and imaging results. 1030: I discussed sending the patient for an MRI to rule out a possible CVA. The patient informs me that she is unable to have an MRI due a past kidney surgery. 1037:I discussed the patients case with RONA Springer, who will evaluate the patient for further management and care. 1100: Upon reevaluation, the patient is resting comfortably. I discussed laboratory and radiographic results with the patient. She verbalized agreement of the treatment plan. The patient will be evaluated for further management and care. Consultations Consultation #1: I discussed the patients case with RONA Springer, who will evaluate the patient for further management and care. Time: 10:37 Administered Medications Sodium Chloride (Nss 1000ml) 1,000 mls @ 80 mls/hr IV .[id number] TANYA Stop: 09/09/18 12:16 Last Admin: 08/10/18 12:32 Dose: 80 mls/hr Documented by: [id number] Sucralfate (Carafate) 1 gm PO QID TANYA Stop: 09/09/18 12:59 Last Admin: 08/10/18 12:48 Dose: 1 gm Documented by: [id number] Discontinued Medications Aspirin (Aspirin) 324 mg PO NOW STA Stop: 08/10/18 10:34 Last Admin: 08/10/18 11:10 Dose: Not Given Documented by: [id number] Aspirin (Aspirin Chew) Confirm Administered Dose 324 mg .ROUTE .STK-MED ONE Stop: 08/10/18 11:09 Last Admin: 08/10/18 11:09 Dose: 324 mg Documented by: [id number] Hydralazine HCl (Hydralazine Hcl) 5 mg IV NOW ONE Stop: 08/10/18 10:37 Last Admin: 08/10/18 11:10 Dose: 5 mg Documented by: [id number] Sodium Chloride (Nss) 500 mls @ 999 mls/hr IV .Q31M TANYA Stop: 08/10/18 09:45 Last Infusion: 08/10/18 10:14 Dose: 0 mls/hr Documented by: [id number] Admin: 08/10/18 09:20 Dose: 999 mls/hr Documented by: [id number] Ceftriaxone Sodium 2,000 mg/ (Dextrose) 70 mls @ 100 mls/hr IV NOW STA Stop: 08/10/18 10:02 Last Infusion: 08/10/18 10:57 Dose: 0 mls/hr Documented by: [id number] Admin: 08/10/18 10:14 Dose: 100 mls/hr Documented by: [id number] Sodium Chloride (Nss) 500 mls @ 999 mls/hr IV .Q31M ONE Stop: 08/10/18 10:19 Last Infusion: 08/10/18 10:57 Dose: 0 mls/hr Documented by: [id number] Admin: 08/10/18 10:14 Dose: 999 mls/hr Documented by: [id number] Lorazepam (Ativan) 0.5 mg in 1 mls @ 1 mls/min IV NOW STA Stop: 08/10/18 10:33 Last Admin: 08/10/18 11:09 Dose: 1 mls/min Documented by: [id number] Magnesium Sulfate/Dextrose (Magnesium Sulfate / D5w) 1 gm in 100 mls @ 100 mls/hr IV ONE ONE Stop: 08/10/18 11:32 Last Infusion: 08/10/18 12:13 Dose: 0 mls/hr Documented by: [id number] Admin: 08/10/18 11:10 Dose: 100 mls/hr Documented by: [id number] Ondansetron HCl (Zofran) 4 mg IV NOW STA Stop: 08/10/18 09:08 Last Admin: 08/10/18 09:20 Dose: 4 mg Documented by: [id number] Medical Decision Making Differential Diagnosis Differential diagnosis: Etiologies such as metabolic, infection, hypo/hyperglycemia, electrolyte abnormalities, cardiac sources, intracerebral event, toxicologic, neurologic, as well as others were entertained. Medical Records Attestation: I reviewed the patient's medical records. Home Medications Current Medication List: was personally reviewed by me Laboratory Data Attestation: I reviewed the patient's lab results. Result diagrams: 08/10/18 09:21 08/10/18 09:21 Lab Results 08/10/18 08/10/18 08/10/18 Range/Units 09:21 09:21 09:21 WBC 9.66 (4.8-10.8) K/uL RBC 4.23 (4.2-5.4) M/uL Hgb 12.7 (12.0-16.0) g/dL Hct 36.6 L (37-47) % MCV 86.5 (80-100) fL MCH 30.0 (25-34) pg MCHC 34.7 (32-36) g/dL RDW Std Deviation 43.1 (36.4-46.3) fL RDW Coeff of Liz 13.6 (11.5-14.5) % Plt Count 214 (130-400) K/uL MPV 10.2 (7.4-10.4) fL Immature Gran % (Auto) 0.3 % Neut % (Auto) 71.7 % Lymph % (Auto) 19.0 % [place] % (Auto) 7.5 % Eos % (Auto) 1.4 % Baso % (Auto) 0.1 % Immature Gran # (Auto) 0.03 H (0.00-0.02) K/uL Neut # (Auto) 6.92 H (1.4-6.5) K/uL Lymph # (Auto) 1.84 (1.2-3.4) K/uL [place] # (Auto) 0.72 H (0.11-0.59) K/uL Eos # (Auto) 0.14 (0-0.5) K/uL Baso # (Auto) 0.01 (0-0.2) K/uL Sodium 134 L (136-145) mmol/L Potassium 3.7 (3.5-5.1) mmol/L Chloride 99 (98-107) mmol/L Carbon Dioxide 26 (21-32) mmol/L Anion Gap 9.0 (3-11) BUN 25 H (7-18) mg/dl Creatinine 1.48 H (0.6-1.2) mg/dl Est Cr Clr Drug Dosing 30.8 ml/min Est GFR ( Amer) 37.3 Est GFR (Non-Af Amer) 32.2 BUN/Creatinine Ratio 16.9 (10-20) Glucose 105 H (70-99) mg/dl Calcium 8.9 (8.5-10.1) mg/dl Total Bilirubin 0.4 (0.2-1) mg/dl AST 17 (15-37) U/L ALT 20 (12-78) U/L Alkaline Phosphatase 79 (45-117) U/L Total Creatine Kinase 125 (26-192) U/L Troponin I < 0.015 Cancelled (0-0.045) ng/ml Total Protein 7.2 (6.4-8.2) gm/dl Albumin 3.4 (3.4-5.0) gm/dl Globulin 3.8 (2.5-4.0) gm/dl Albumin/Globulin Ratio 0.9 (0.9-2) TSH 1.040 (0.300-4.500) uIu/ml Urine Color Urine Appearance (Clear) Urine pH (4.5-7.5) Ur Specific [place] (1.000-1.030) Urine Protein (Negative) Urine Glucose (UA) (Negative) Urine Ketones (Negative) Urine Blood (Negative) Urine Nitrite (Negative) Urine Bilirubin (Negative) Urine Urobilinogen (Negative) Ur Leukocyte Esterase (Negative) 08/10/18 Range/Units 10:40 WBC (4.8-10.8) K/uL RBC (4.2-5.4) M/uL Hgb (12.0-16.0) g/dL Hct (37-47) % MCV (80-100) fL MCH (25-34) pg MCHC (32-36) g/dL RDW Std Deviation (36.4-46.3) fL RDW Coeff of Liz (11.5-14.5) % Plt Count (130-400) K/uL MPV (7.4-10.4) fL Immature Gran % (Auto) % Neut % (Auto) % Lymph % (Auto) % [place] % (Auto) % Eos % (Auto) % Baso % (Auto) % Immature Gran # (Auto) (0.00-0.02) K/uL Neut # (Auto) (1.4-6.5) K/uL Lymph # (Auto) (1.2-3.4) K/uL [place] # (Auto) (0.11-0.59) K/uL Eos # (Auto) (0-0.5) K/uL Baso # (Auto) (0-0.2) K/uL Sodium (136-145) mmol/L Potassium (3.5-5.1) mmol/L Chloride (98-107) mmol/L Carbon Dioxide (21-32) mmol/L Anion Gap (3-11) BUN (7-18) mg/dl Creatinine (0.6-1.2) mg/dl Est Cr Clr Drug Dosing ml/min Est GFR ( Amer) Est GFR (Non-Af Amer) BUN/Creatinine Ratio (10-20) Glucose (70-99) mg/dl Calcium (8.5-10.1) mg/dl Total Bilirubin (0.2-1) mg/dl AST (15-37) U/L ALT (12-78) U/L Alkaline Phosphatase (45-117) U/L Total Creatine Kinase (26-192) U/L Troponin I (0-0.045) ng/ml Total Protein (6.4-8.2) gm/dl Albumin (3.4-5.0) gm/dl Globulin (2.5-4.0) gm/dl Albumin/Globulin Ratio (0.9-2) TSH (0.300-4.500) uIu/ml Urine Color Yellow Urine Appearance Clear (Clear) Urine pH 7.5 (4.5-7.5) Ur Specific [place] 1.007 (1.000-1.030) Urine Protein Negative (Negative) Urine Glucose (UA) Negative (Negative) Urine Ketones Negative (Negative) Urine Blood Negative (Negative) Urine Nitrite Negative (Negative) Urine Bilirubin Negative (Negative) Urine Urobilinogen Negative (Negative) Ur Leukocyte Esterase Negative (Negative) Imaging Data Radiologist's Impression: Radiology results as stated below per my review and the radiologist's interpretation: XR chest 1V portable CLINICAL HISTORY: weakness COMPARISON STUDY: Chest radiograph 08/07/2018. FINDINGS: Lung volumes are normal. There is no pneumothorax or pleural effusion. Linear left basilar opacity suggest atelectasis or scarring. There is no evidence for pulmonary edema or pneumonia. Cardiomediastinal silhouette is stable. Appearance of the chest is unchanged. IMPRESSION: No acute cardiopulmonary findings. Electronically signed by: Kareem Araujo M.D. 08/10/2018 9:[address] OF THE HEAD WITHOUT CONTRAST CLINICAL HISTORY: Weakness. COMPARISON STUDY: Head CT September 11, 2013. CT DOSE: 537.48 mGy.cm TECHNIQUE: Helical axial images of the head were obtained without IV contrast. Automated exposure control was utilized for the study. A dose lowering technique was utilized adhering to the principles of ALARA. FINDINGS: No acute intracranial hemorrhage, midline shift or mass effect is present. Ventricular system is unremarkable. The basilar cisterns are patent. There are no extra-axial collections. A hypodensity within left basal ganglia is unchanged. This may reflect a prominent perivascular space or old lacunar infarct. Mild white matter hypodensity suggests small vessel disease. There are no findings to suggest acute dural sinus thrombosis or acute territorial infarct. There are no significant calvarial abnormalities. Visualized portions of the sinuses and mastoid air cells are clear. IMPRESSION: No acute intracranial findings. Electronically signed by: Kareem Araujo M.D. 08/10/2018 10:18 AM [facility] CLINICAL HISTORY: Pt c/o kidney removal??? metal in body??? COMPARISON STUDY: CT of the abdomen and pelvis November 28, 2014. FINDINGS: The bowel gas pattern is normal. Numerous surgical dwight are unchanged since CT of November 28, 2014. IMPRESSION: 1. No evidence for a bowel obstruction. 2. No change in multiple surgical dwight since CT of November 28, 2014. Electronically signed by: Kareem Araujo M.D. 08/10/2018 12:19 PM ECG Data Attestation: I personally reviewed and interpreted this ECG as follows: Indication: nausea Rate (beats per minute): 67 Rhythm: normal sinus Findings: + other (normal EKG); no ST depression, no ST elevation and no acute ischemic change Blood Pressure Blood Pressure Findings: Elevated blood pressure Blood Pressure Disposition: elevated BP felt to be situational MDM Narrative This is an 83-year-old female who presents emergency department complaining of weakness and shakiness. The patient was recently placed on doxycycline for presumed positive Lyme disease. She is found to be grossly hypertensive here therefore was given hydralazine as well as some Ativan. Her CAT scan is concerning for a CVA at the lacunar infarct. Patient states she cannot lay for an MRI due to metal in her back from a previous nephrectomy. Because of the infarct as well as her hypertension I did discuss the case with the hospitalist service who agreed to admit the patient. Patient was in agreement with the treatment plan. Impression & Plan Hypertensive urgency, Lacunar infarction Discharge Plan Visit Data *Final* Discharge Date/Time: 08/10/18 11:48 Chief Complaint: Illness Stated Complaint: RECENTLY DIAGNOSED WITH LYMES ED Provider: Brendon Swift Discharge Problem: Hypertensive urgency, Lacunar infarction Patient Disposition: Admitted As Inpatient Discharge Instructions Interventions: ED Discharge Assessment Last Done: 08/10/18 11:48 The scribe's documentation has been prepared under my direction and personally reviewed by me in its entirety. I confirm that the note above accurately reflects all work, treatment, procedures, and medical decision making performed by me.
--- NOTE | 2018-08-10 17:19 | Infectious Disease Consult ---
Date of Consultation August 10, 2018 Assessment & Plan (1) Lyme disease: Patient with previously diagnosed and treated Lyme disease, now presents with weakness, nausea, fatigue, with intermittent abdominal pains, with positive Lyme serology but no obvious tick exposure or bite. I am not convinced that her acute episode is related to either prior Lyme disease or new infection. It is possible that her neuropathy may be related to her Lyme disease, although previous treatment should have been adequate. For now, would continue patient on IV ceftriaxone, would consider further evaluation including abdominal CT scan, rheumatologic studies, possible HIDA scan to rule out chronic biliary di sease. May need to give empiric 2-week course of IV ceftriaxone to ensure adequate treatment for possible late Lyme disease with peripheral neuropathy. Will discuss with all involved. Will follow. History of Present Illness Requesting Physician: Positive IgM Lyme test Attending Physician: Norbert Suarez MD History of Present Illness 83-year-old female with history of hyperlipidemia, gout, osteoarthritis who was admitted with possible diagnosis of Lyme disease. Patient states she was diagnosed with Lyme disease approximately 10 years ago after being evaluated for chronic fatigue, weakness, and intermittent gastrointestinal complaints. She apparently had positive Lyme serology and was given doxycycline without significant change in her symptoms. She was retreated more recently when above symptoms had continued, and serology again showed positive Lyme serology. She recently developed recurrent complaints of weakness, fatigue, intermittent abdominal pain, with nausea, no diarrhea. Lyme serology again is positive, patient was initially started on doxycycline, but because of GI symptoms was now changed to IV ceftriaxone. No prior history of erythema migrans rash. Does not have frequent outdoor activities leading to exposure. Allergies Allergy/AdvReac Type Severity Reaction Status Date / Time allopurinol Allergy Unknown ENDED UP Verified 08/10/18 09:42 IN THE HOSPITAL-UNSURE OF SYMPTOMS Bactrim Allergy Unknown UNKNOWN Verified 05/25/17 07:33 sulfamethoxazole Allergy Unknown UNKNOWN Verified 08/10/18 09:42 trimethoprim Allergy Unknown UNKNOWN Verified 08/10/18 09:42 HERNANDEZ Inhibitors AdvReac Mild COUGH Verified 08/10/18 12:20 atorvastatin AdvReac Mild SORE Verified 08/10/18 12:20 MUSCLES meperidine AdvReac Mild COULD NOT Verified 08/10/18 12:20 WAKE UP AFTER simvastatin AdvReac Mild SORE Verified 08/10/18 12:20 MUSCLES Home Medications Home Medications Medication Instructions Recorded Confirmed Type aspirin 325 mg tablet,delayed 325 mg PO QAM tab 08/02/18 08/10/18 History release cholecalciferol (vitamin D3) 2,000 2,000 unit PO DAILY tab 08/02/18 08/10/18 History unit tablet docusate sodium 250 mg capsule 250 mg PO QAM cap 08/02/18 08/10/18 History hydrocortisone 2.5 % topical cream 1 applic [place] DIRECTED PRN #1 gm 08/05/18 08/10/18 History with perineal applicator multivitamin tablet 1 tab PO DAILY 08/05/18 08/10/18 History psyllium husk 3.4 gram/5.4 gram 1 tbs PO DAILY 08/05/18 08/10/18 History oral powder Saccharomyces boulardii [Florastor] 250 mg PO BID #42 cap 08/07/18 08/10/18 Rx doxycycline hyclate 100 mg PO BID 08/10/18 08/10/18 History triamterene-hydrochlorothiazid 1 cap PO QAM 08/10/18 08/10/18 History Patient History Medical History Peripheral neuropathy (Chronic) Generalized weakness (Acute) Doxycycline adverse reaction (Acute) Accelerated hypertension (Acute) Anxiety state (Acute) Vitamin D deficiency Unsteady gait Neuropathic pain Mixed hyperlipidemia Gout Fatigue (Chronic) Erosive osteoarthritis of right hand CKD (chronic kidney disease), stage III Family History Other Family history non-contributory Social History Preferred Language: [place] Communication Ability: Effective Beliefs That Will Affect Care: None marital status: Current Living Situation: Spouse current occupational status: retired Feels Safe at Home: Yes Smoking Status: Never smoker Second Hand Exposure: No Hx Alcohol Use: No Hx Substance Use: No Review of Systems Review of Systems: All systems reviewed & are unremarkable except as noted in HPI & below Physical Exam Constitutional: WD/WN, vitals as above comfortable; no acute distress Eyes: PERRL, conjunctivae normal, anicteric sclerae ENMT: external ear and nose normal, oropharynx normal Neck: trachea midline, no thyromegaly neck nontender Respiratory: normal respiratory effort, lungs clear to auscultation normal percussion; does not use accessory muscles Cardiovascular: Rate/Rhythm: regular rate and regular rhythm Heart Sounds: normal S1 and normal S2; no gallop, no murmur and no cardiac rub Vessels: normal peripheral pulses; no JVD Gastrointestinal (Abdomen): normal bowel sounds, soft, nontender, no hepatosplenomegaly Musculoskeletal: no cyanosis or clubbing, extremities motor strength 5/5 Spine: thoracic spine normal to inspection and lumbar spine normal to inspection; no cervical spinal tenderness Skin: no rashes, warm and dry normal turgor; no lesions Neurologic: patellar DTR's 2+ bilat, sensation intact no focal motor deficits Psychiatric: A+Ox3, euthymic affect Orientation: cooperative Lymphatic: no cervical or axillary lymphadenopathy no inguinal lymphadenopathy Results & Data Vital Signs (Past 12 Hours) Vital Signs Temp Pulse Pulse Resp BP BP Pulse Ox 08/10/18 15:25 36.3 C L 87 18 174/86 H 98 08/10/18 12:20 36.8 C 75 20 158/79 H 98 08/10/18 11:13 65 18 191/86 H 98 08/10/18 10:44 66 18 193/83 H 98 08/10/18 09:40 98 08/10/18 08:49 37.4 C 72 20 211/79 H 98 Laboratory Results Short CBC 08/10/18 Range/Units 09:21 WBC 9.66 (4.8-10.8) K/uL Hgb 12.7 (12.0-16.0) g/dL Hct 36.6 L (37-47) % Plt Count 214 (130-400) K/uL BMP 08/10/18 09:21 Sodium 134 L Potassium 3.7 Chloride 99 Carbon Dioxide 26 BUN 25 H Creatinine 1.48 H Glucose 105 H Calcium 8.9 Cardiac Enzymes 08/10/18 08/10/18 Range/Units 09:21 09:21 Total Creatine Kinase 125 (26-192) U/L Troponin I < 0.015 Cancelled (0-0.045) ng/ml Liver Function 08/10/18 Range/Units 09:21 Total Bilirubin 0.4 (0.2-1) mg/dl AST 17 (15-37) U/L ALT 20 (12-78) U/L Alkaline Phosphatase 79 (45-117) U/L Albumin 3.4 (3.4-5.0) gm/dl Urine 08/10/18 Range/Units 10:40 Urine Color Yellow Urine Appearance Clear (Clear) Urine pH 7.5 (4.5-7.5) Ur Specific [place] 1.007 (1.000-1.030) Urine Protein Negative (Negative) Urine Glucose (UA) Negative (Negative) Diagnostic Findings [facility] CLINICAL HISTORY: Pt c/o kidney removal??? metal in body??? COMPARISON STUDY: CT of the abdomen and pelvis November 28, 2014. FINDINGS: The bowel gas pattern is normal. Numerous surgical dwight are unchanged since CT of November 28, 2014. IMPRESSION: 1. No evidence for a bowel obstruction. 2. No change in multiple surgical dwight since CT of November 28, 2014. Electronically signed by: Kareem Araujo M.D. 08/10/2018 12:19 PM Dictated: 08/10/18 1205 Transcribed: 08/10/18 1207
[2018-08-10] MEDS: ENOXAPARIN INJ 30 MG/0.3 ML SYR SQ SCH (20:53)
[2018-08-10] MEDS: ALPRAZolam 0.25 MG TABLET PO SCH (20:53)
[2018-08-10] MEDS: FAMOTIDINE 20 MG TAB PO SCH (20:54)
[2018-08-10] MEDS: SACCHAROMYCES BOULARDII 250 MG CAP PO SCH (20:54)
[2018-08-11] MEDS: ACETAMINOPHEN 325 MG TAB PO PRN (07:43)
[2018-08-11] MEDS: ALPRAZolam 0.25 MG TABLET PO SCH ×2 (07:43→21:06)
[2018-08-11] MEDS: SUCRALFATE 1 GM/10 ML UDC PO SCH ×4 (07:43→21:06)
[2018-08-11] MEDS: MULTIVITAMIN TAB PO SCH (08:30)
[2018-08-11] MEDS: ASPIRIN 325 MG ECTAB PO SCH (08:30)
[2018-08-11] MEDS: CHOLECALCIFEROL 1,000 UNITS TAB PO SCH (08:30)
[2018-08-11] MEDS: TRIAMTERENE/HCTZ 37.5/25MG CAP PO SCH (08:30)
[2018-08-11] MEDS: FAMOTIDINE 20 MG TAB PO SCH ×2 (08:30→21:07)
[2018-08-11] MEDS: PSYLLIUM 58.6% POWDER PACKET PO SCH (08:30)
[2018-08-11] MEDS: SACCHAROMYCES BOULARDII 250 MG CAP PO SCH ×2 (08:30→21:07)
[2018-08-11] MEDS: cefTRIAXone SODIUM 2,000 MG in DEXTROSE 5% 50 ML IV SCH (08:31)
[2018-08-11] MEDS: DOCUSATE SODIUM 100 MG CAP PO SCH (08:31)
[2018-08-11 08:40] LABS: Hematocrit (blood only) 36.9 % (37-47); Hemoglobin 12.6 g/dL (12.0-16.0); Mean Corpuscular Hgb Conc 34.1 g/dL (32-36); Mean Corpuscular Volume 88.7 fL (80-100); Mean Platelet Volume 10.3 fL (7.4-10.4); Platelet Count 196 K/uL (130-400); RDW Coefficient of Variation 14.1 % (11.5-14.5); RDW Standard Deviation 45.8 fL (36.4-46.3); Red Blood Count 4.16 M/uL (4.2-5.4); White Blood Count 7.57 K/uL (4.8-10.8)
[2018-08-11 09:11] LABS: Albumin Level 3.4 gm/dl (3.4-5.0); BUN Creatinine Ratio 15.6 (10-20); Calcium 8.9 mg/dl (8.5-10.1); Creatinine Clr Calc Pharmacy 32.4 ml/min; Est GFR (African American) 39.5; Est GFR (Non-African American) 34.1; Potassium 4.1 mmol/L (3.5-5.1)
[2018-08-11 09:14] LABS: Bilirubin,Total 0.3 mg/dl (0.2-1); Globulin 3.6 gm/dl (2.5-4.0)
[2018-08-11] MEDS: SODIUM CHLORIDE 0.9% 1000ML 1,000 ML IV SCH (12:50)
--- NOTE | 2018-08-11 13:32 | Hospitalist Progress Note ---
Date of Service August 11, 2018 Assessment & Plan (1) Generalized weakness: - Possibly related to dehydration vs. Lyme disease vs. other. - PT/OT evaluation ordered for discharge planning. - IV fluids at 80 cc/hr. - Treatment for Lyme Disease with Ceftriaxone IV. (2) Acute Lyme disease: - Recent IgM test positive; started on Doxycycline in the ER on 08/07. - Developed GI upset in setting of Doxycycline -- converted to Ceftriaxone IV. - ID consulted, appreciate input. Will need 2 week course of IV abx. - Will need to investigate if pt. qualifies for home nursing or will need daily MTU appt. (3) Doxycycline adverse reaction: - Presented with nausea/anorexia -- likely related to Doxycycline therapy. - D/c'ed Doxy, now tolerating Ceftriaxone IV. - Zofran prn nausea/vomiting. - Continue bowel regimen to avoid constipation. (4) Dysuria: - UC from 08/07 +Diptheroids and Gamma strep, not enterococcus. Pt. does complain of urinary frequency and dysuria. - On Ceftriaxone IV for coverage of Lyme disease. - IVF hydration. (5) Accelerated hypertension: - Likely related to anxiety vs. IV fluids vs. underlying uncontrolled BP. - Continue home Dyazide as prescribed. - Will need to add additional agent if BP remains uncontrolled. - Xanax 0.25 BID scheduled for anxiety. (6) Anxiety state: - Supportive care; also started Xanax 0.25 mg BID scheduled. 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 - Creatinine is currently at baseline, monitor qAM. - IV fluids at 80 cc/hr. (8) Peripheral neuropathy: - Chronic, will monitor. (9) DVT prophylaxis: - Lovenox q24hr. Dispo: Med/surg; change to full admit. Discharge pending PT/OT evaluation, improvement in uncontrolled HTN and arrangement of IV abx as outpatient. Subjective Pt. is slightly improved overall. She states fatigue/weakness improving -- slept better last night compared to previous nights at home. Is passing gas, had a small BM overnight. Complains of urinary frequency and mild dysuria. Denies chest pain, SOB, myalgias, N/V, abd pain. PT/OT consult is pending. Family present at bedside, updated with plan of care. Review of Systems Review of Systems: All systems reviewed & are unremarkable except as noted in HPI & below Constitutional: + fatigue, + weakness and + anorexia; no fever and no chills Respiratory: no cough, no dyspnea, no dyspnea on exertion and no wheezing Cardiovascular: no chest pain, no palpitations and no edema Gastrointestinal: + constipation; no abdominal pain, no nausea, no vomiting a nd no diarrhea/loose stools Genitourinary: + dysuria and + urinary frequency Musculoskeletal: no back pain, no joint pain, no myalgia and no body aches Integumentary: no non-healing lesions Allergy / Immunological: no rash Physical Exam Physical Exam: General: Resting comfortably HEENT: NC/AT; PERRLA with EOMI; [place] conjunctiva, MMM. No erythema of posterior pharynx Neck: Supple and nontender Cardiac: RRR Lungs: CTA bilaterally Abdomen: Bowel normoactive X 4; Nontender to palpation Extremities: Warm. No edema present Neuro: No focal weakness Skin: No rash Results & Data Vital Signs (Past 12 Hours) Vital Signs Temp Pulse Resp BP Pulse Ox 08/11/18 07:31 36.6 C 66 18 163/93 H 96 Laboratory Results 08/11/18 08/11/18 08/10/18 Range/Units 08:28 08:28 12:40 WBC 7.57 (4.8-10.8) K/uL RBC 4.16 L (4.2-5.4) M/uL Hgb 12.6 (12.0-16.0) g/dL Hct 36.9 L (37-47) % MCV 88.7 (80-100) fL MCH 30.3 (25-34) pg MCHC 34.1 (32-36) g/dL RDW Std Deviation 45.8 (36.4-46.3) fL RDW Coeff of Liz 14.1 (11.5-14.5) % Plt Count 196 (130-400) K/uL MPV 10.3 (7.4-10.4) fL PT 10.3 (9.0-12.0) Seconds INR 1.0 (0.9-1.1) APTT 25.4 (21.0-31.0) Seconds PTT Ratio 0.9 Sodium 140 (136-145) mmol/L Potassium 4.1 (3.5-5.1) mmol/L Chloride 109 H (98-107) mmol/L Carbon Dioxide 25 (21-32) mmol/L Anion Gap 6.0 (3-11) BUN 22 H (7-18) mg/dl Creatinine 1.41 H (0.6-1.2) mg/dl Est Cr Clr Drug Dosing 32.4 ml/min Est GFR ( Amer) 39.5 Est GFR (Non-Af Amer) 34.1 BUN/Creatinine Ratio 15.6 (10-20) Glucose 119 H (70-99) mg/dl Calcium 8.9 (8.5-10.1) mg/dl Total Bilirubin 0.3 (0.2-1) mg/dl AST 18 (15-37) U/L ALT 19 (12-78) U/L Alkaline Phosphatase 76 (45-117) U/L Total Protein 7.0 (6.4-8.2) gm/dl Albumin 3.4 (3.4-5.0) gm/dl Globulin 3.6 (2.5-4.0) gm/dl Albumin/Globulin Ratio 1.0 (0.9-2) PG Care Time/CCT Total # of Minutes Spent Total Time Spent with Patient: Total time spent is greater than 50% in coordination of care (as documented) at patient's floor/unit and/or counseling patient:
[2018-08-11] MEDS: ENOXAPARIN INJ 30 MG/0.3 ML SYR SQ SCH (21:07)
[2018-08-12] MEDS: SODIUM CHLORIDE 0.9% 1000ML 1,000 ML IV SCH ×2 (01:27→13:32)
[2018-08-12 05:51] LABS: Hematocrit (blood only) 33.4 % (37-47); Hemoglobin 11.1 g/dL (12.0-16.0); Mean Corpuscular Hgb Conc 33.2 g/dL (32-36); Mean Corpuscular Volume 87.9 fL (80-100); Mean Platelet Volume 10.6 fL (7.4-10.4); Platelet Count 186 K/uL (130-400); RDW Coefficient of Variation 14.1 % (11.5-14.5); RDW Standard Deviation 45.2 fL (36.4-46.3); White Blood Count 8.04 K/uL (4.8-10.8)
[2018-08-12 06:26] LABS: BUN Creatinine Ratio 16.1 (10-20); Calcium 8.4 mg/dl (8.5-10.1); Creatinine Clr Calc Pharmacy 28.3 ml/min; Est GFR (African American) 33.7; Est GFR (Non-African American) 29.1; Potassium 4.4 mmol/L (3.5-5.1)
[2018-08-12] MEDS: SUCRALFATE 1 GM/10 ML UDC PO SCH ×4 (07:37→20:50)
[2018-08-12] MEDS: DOCUSATE SODIUM 100 MG CAP PO SCH (07:37)
[2018-08-12] MEDS: SACCHAROMYCES BOULARDII 250 MG CAP PO SCH ×2 (07:38→20:50)
[2018-08-12] MEDS: MULTIVITAMIN TAB PO SCH (07:38)
[2018-08-12] MEDS: PSYLLIUM 58.6% POWDER PACKET PO SCH (07:38)
[2018-08-12] MEDS: ASPIRIN 325 MG ECTAB PO SCH (07:38)
[2018-08-12] MEDS: TRIAMTERENE/HCTZ 37.5/25MG CAP PO SCH (07:38)
[2018-08-12] MEDS: FAMOTIDINE 20 MG TAB PO SCH ×2 (07:38→20:50)
[2018-08-12] MEDS: CHOLECALCIFEROL 1,000 UNITS TAB PO SCH (07:38)
[2018-08-12] MEDS: ACETAMINOPHEN 325 MG TAB PO PRN (07:39)
[2018-08-12] MEDS: ALPRAZolam 0.25 MG TABLET PO SCH ×2 (07:39→20:51)
[2018-08-12] MEDS: cefTRIAXone SODIUM 2,000 MG in DEXTROSE 5% 50 ML IV SCH (08:13)
[2018-08-12] MEDS: PHENAZOPYRIDINE HCL 200 MG TAB PO PRN (09:52)
--- NOTE | 2018-08-12 15:20 | Ultrasound Report ---
US retro bladder ltd CLINICAL HISTORY: 83 years-old Female presenting with Painful Urination/Bladder thick? Retain? debris ?. TECHNIQUE: Real-time grayscale and limited color Doppler ultrasound imaging of the kidneys and bladde r was performed. COMPARISON: CT from 11/28/2014. FINDINGS: Right kidney: Normal echogenicity of renal parenchyma. Right kidney measures 10.5 cm. No hydronephros is. Subcentimeter lower pole simple cyst. Left kidney: Surgically absent. Bladder: Normal. Left ureteral jet not present. Other: None. IMPRESSION: 1. Status post left nephrectomy. 2. No right hydronephrosis. 3. No gross evidence of bladder debris. Electronically signed by: Gwyn Baez M.D. 08/12/2018 3:18 PM
--- NOTE | 2018-08-12 16:28 | Hospitalist Progress Note ---
Date of Service August 12, 2018 Assessment & Plan (1) Generalized weakness: - Appears this is a rather chronic issue and progressive - possibility for chronic Lyme fatigue vs deconditioning vs dehydration vs poor sleep -- Does report improvement in symptoms - Will continue fluids at 80 mL/hr through the day - IgM is positive with IgG being negative with Western blot pending - does not appear this is an acute Lyme issue - did convert to Rocephin daily - ID following - appreciate input with serology - planning to complete a course of Rocephin with plans for daily MTU treatments (2) Acute Lyme disease: - Recent IgM test positive; started on Doxycycline in the ER on 08/07 but developed GI upset and converted to Ceftriaxone -- Doxy caused nausea/anorexia which has subsided - ID consulted, appreciate input. Will need 2 week course of IV abx; planning on MTU administration of Abx (3) Dysuria: - It doesn't appear she is really having painful urination more of difficulty with stream - this has been a chronic issue and progressive as well - Reports sometimes difficulty initiating urination and intermittent breaks in her stream - reports she normally lifts her abdomen and gives suprapubic pressure and her bladder empties more - She did have significant pain on 08/11 which bladder scan showed 400 cc urine and she was not able to urinate but then when laying in bed was incontinent to large amount of urine - maybe overflow incontinence?, neurogenic bladder?, prolapse? interstitial cytitis- suspect pain last night was from bladder distention - Has been on Rocephin for multiple days so likely not infectious; UCx only with diphtheroids and gamma strep, not enterococcus - Bladder U/S completed - no mention of bladder wall thickening or debris to suggest sediment/stones; KUB on admission without stones - Patient seems to be implementing some bladder retraining which seems to help - she reports she tries to empty her bladder every 45 minutes to prevent the urgency feeling which is helping - is experiencing nocturia which is interrupting sleep which may be a large component of her generalized weakness/fatigue; also on Dyazide which could be contributing to nocturia - Consult Urology - appreciate any additional tests or recommendations (4) Accelerated hypertension: - This appears to be more situational/anxiety provoked and improving - Continue Dyazide at this time - also likely contributing to nocturia - Will hold on further medications to prevent hypotension - she does have a BP cuff at home which she monitors (5) Anxiety state: - Supportive care; also started Xanax 0.25 mg BID scheduled - if continues to be more relaxed can switch to PRN use (6) CKD (chronic kidney disease), stage III: - S/P nephrectomy due to angiomyolipoma - Baseline appears to be 1.4-1.6 and remains at baseline - Monitor and avoid nephrotoxins; follows with Dr. Mcqueen (7) Peripheral neuropathy: - Chronic, unknown etiology - suspected do to Lyme and seems to be more limited to the toes (8) DVT prophylaxis: - Lovenox q24hr. Dispo: Work-up urinary issues; arrange MTU Abx and possibly home tomorrow Subjective Reports improvement in her generalized weakness which has been a progressive issue. Western blot pending and being treated for tick-borne illness. Denies proximal muscle weakness and ESR/CRP normal so unlikely PMR. Biggest complaint currently is urinary issues. States she has had progressive issues with incontinence which appears partially stress-induced as coughing can bring it on. However also dealing with likely component of retention as she sometimes needs to lift her abdomen and press near the bladder to fully empty her bladder. Last evening she state she developed significant pain and could not void and bladder scan showed 400 cc. She states she went back to bed and then urinated once she was laying down. She states she normally does not have pain like this but does have chronic issues with not complete emptying. She does note that if she keeps to a scheduled urination it prevents the worsening urge feeling but has impacted her sleep. She denies known prolapse but has had multiple pregnancies and could still be experiencing prolapse as a contributing factor. Continues on Abx and likely not infectious in nature. No vaginal itching or reports of yeast infection. She has never seen a Urologist in the past for this but did have her kidney removed by Dr. Cuevas. Review of Systems Constitutional: + fatigue and + weakness; no fever and no chills Eyes: no worsening vision Respiratory: no cough and no dyspnea Cardiovascular: no chest pain, no palpitations and no edema Gastrointestinal: no abdominal pain, no nausea, no vomiting, no constipation and no diarrhea/loose stools Genitourinary: + difficulty urinating, + urinary hesitancy, + urinary incontinence and + nocturia; no dysuria, no decreased urination, no hematuria, no flank pain, no vaginal discharge and no vaginal itching Musculoskeletal: no body aches Integumentary: no rash Neurologic: + numbness (toes b/l - chronic) Physical Exam Constitutional: WD/WN, vitals as above Eyes: + anicteric sclerae ENMT: Ears: no hearing impairment Neck: trachea midline Respiratory: normal respiratory effort, lungs clear to auscultation Cardiovascular: Rate/Rhythm: regular rate and regular rhythm Gastrointestinal (Abdomen): Inspection/Auscultation: normal bowel sounds; abdomen not distended Percussion/Palpation: abdomen soft; abdomen nontender Musculoskeletal: Head/Neck/Chest: normocephalic and head atraumatic Skin: no rashes, warm and dry Neurologic: moves all extremities Psychiatric: A+Ox3, euthymic affect Results & Data Vital Signs (Past 12 Hours) Vital Signs Temp Pulse Resp BP Pulse Ox 08/12/18 15:12 36.4 C L 67 20 135/74 97 08/12/18 07:18 37 C 74 18 165/84 H PG Care Time/CCT Total # of Minutes Spent Total Time Spent with Patient: Total time spent is greater than 50% in coordination of care (as documented) at patient's floor/unit and/or counseling patient:
[2018-08-12] MEDS: ENOXAPARIN INJ 30 MG/0.3 ML SYR SQ SCH (20:49)
[2018-08-13] MEDS: SODIUM CHLORIDE 0.9% 1000ML 1,000 ML IV SCH (01:27)
[2018-08-13] MEDS: DOCUSATE SODIUM 100 MG CAP PO SCH (08:04)
[2018-08-13] MEDS: SUCRALFATE 1 GM/10 ML UDC PO SCH ×2 (08:04→12:57)
[2018-08-13] MEDS: ASPIRIN 325 MG ECTAB PO SCH (08:05)
[2018-08-13] MEDS: TRIAMTERENE/HCTZ 37.5/25MG CAP PO SCH (08:05)
[2018-08-13] MEDS: MULTIVITAMIN TAB PO SCH (08:06)
[2018-08-13] MEDS: CHOLECALCIFEROL 1,000 UNITS TAB PO SCH (08:06)
[2018-08-13] MEDS: FAMOTIDINE 20 MG TAB PO SCH (08:06)
[2018-08-13] MEDS: SACCHAROMYCES BOULARDII 250 MG CAP PO SCH (08:06)
[2018-08-13] MEDS: PHENAZOPYRIDINE HCL 200 MG TAB PO PRN (08:07)
[2018-08-13] MEDS: PSYLLIUM 58.6% POWDER PACKET PO SCH (08:09)
[2018-08-13] MEDS: ALPRAZolam 0.25 MG TABLET PO SCH (09:10)
[2018-08-13] MEDS: cefTRIAXone SODIUM 2,000 MG in DEXTROSE 5% 50 ML IV SCH (09:16)
--- NOTE | 2018-08-13 09:18 | Urology Progress Note ---
Date of Service August 13, 2018 Results & Data Vital Signs (Past 12 Hours) Vital Signs Temp Pulse Resp BP Pulse Ox 08/13/18 07:10 36.8 C 73 20 159/76 H 96 08/12/18 23:02 37 C 69 20 125/77 97
--- NOTE | 2018-08-13 09:26 | Urology Consultation ---
Date of Consultation August 13, 2018 Assessment & Plan (1) Dysuria: 83yo F with Lyme Disease, mononephric, voiding dysfunction. It appears these voiding symptoms have been progressively worsening over months, now with bladder pain with distention in the past few days. Encouraged by lack of acute findings on renal US, stable labs. UC&S with contamination - currently on Rocephin IV. Plan to d/c IVFs per primary team - this may help frequency. Continue post void bladder scans qshift to better document trends. This will help determine if she is experiencing more bladder storage vs emptying dysfunction. Straight cath if >400cc - orders placed. Alpha titi may be beneficial if consistently elevated PVRs, will hold off for now. Unfortunately she is not a candidate for anticholinergic therapy due to severe constipation. She will certainly benefit from outpatient followup, possible candidate for pelvic floor PT, Myrbetriq vs outpatient cystoscopy. She would like to re- establish with Dr. Cuevas. No acute surgical intervention at this time. Okay to continue pyridium as needed, use sparingly due to kidney function. I modified dose to pyridium 100mg TID PRN. Will continue to monitor while inpatient. History of Present Illness Reason for Consultation: Urgency/Frequency/Bladder Pain Requesting Physician: Dr. Brady Attending Physician: Jaison Brady, DO History of Present Illness 83yo F with significant PMHx of emergent left nephrectomy in 1994 s/p hemorrhage of AML by Dr. Cuevas, CKD IV with baseline Cr 1.7-2.1 (follows with Dr. Mcqueen, last office visit Jan 2018). Ms. Rajput was admitted to [facility] due to doxycycline failure for treatment of Lyme's Disease. Originally diagnosed ~10 years ago, however had IgM positive Lyme's on ED evaluation earlier this week for increased fatigue. Currently receiving IV Rocephin. We have been consulted for evaluation of worsening voiding dysfunction. Pt states over the last few months she has experienced urgency/frequency and sensation of incomplete emptying. States "I would go to the bathroom, have to sit there a while, push my belly up and then more would come out". Since admission, she has noticed bladder pain with distention, with mild dyuria. She has been voiding q1h to avoid pain, states this has been helping prevent bladder pain - she documented each void (q1h, sometimes q20 minutes overnight last evening). She is having incontinence because "it's easier than getting up so often". Does also experience urge incontinence. She denies hematuria. Denies flank pain or bladder pain at rest. She does suffer with constipation/hemorrhoids, better controlled while inpatient on IV medications. Also using prune juice. Denies pelvic surgeries, no hysterectomy. Denies sensation of prolapse. Chart Review: UC&S from 08/07 >100,000cfu diptheroids, >60,000cfu gamma strep, not enterococcus Renal US: R kidney without hydro, possible small simple cyst. Left kidney surgically absent. Cr 1.6 (baseline 1.7-2.1) Bladder scans intermittently elevated- lowest, 41cc/ highest 450cc and pt able to void 250cc directly following. UO adequate - 750cc in 24 hours with multiple unmeasured voids. Allergies Allergy/AdvReac Type Severity Reaction Status Date / Time allopurinol Allergy Unknown ENDED UP Verified 08/10/18 09:42 IN THE HOSPITAL-UNSURE OF SYMPTOMS Bactrim Allergy Unknown UNKNOWN Verified 05/25/17 07:33 sulfamethoxazole Allergy Unknown UNKNOWN Verified 08/10/18 09:42 trimethoprim Allergy Unknown UNKNOWN Verified 08/10/18 09:42 HERNANDEZ Inhibitors AdvReac Mild COUGH Verified 08/10/18 12:20 atorvastatin AdvReac Mild SORE Verified 08/10/18 12:20 MUSCLES meperidine AdvReac Mild COULD NOT Verified 08/10/18 12:20 WAKE UP AFTER simvastatin AdvReac Mild SORE Verified 08/10/18 12:20 MUSCLES Home Medications Home Medications Medication Instructions Recorded Confirmed Type aspirin 325 mg tablet,delayed 325 mg PO QAM tab 08/02/18 08/10/18 History release cholecalciferol (vitamin D3) 2,000 2,000 unit PO DAILY tab 08/02/18 08/10/18 History unit tablet docusate sodium 250 mg capsule 250 mg PO QAM cap 08/02/18 08/10/18 History hydrocortisone 2.5 % topical cream 1 applic NC DIRECTED PRN #1 gm 08/05/18 08/10/18 History with perineal applicator multivitamin tablet 1 tab PO DAILY 08/05/18 08/10/18 History psyllium husk 3.4 gram/5.4 gram 1 tbs PO DAILY 08/05/18 08/10/18 History oral powder Saccharomyces boulardii [Florastor] 250 mg PO BID #42 cap 08/07/18 08/10/18 Rx doxycycline hyclate 100 mg PO BID 08/10/18 08/10/18 History triamterene-hydrochlorothiazid 1 cap PO QAM 08/10/18 08/10/18 History Patient History Medical History Peripheral neuropathy (Chronic) Generalized weakness (Acute) Doxycycline adverse reaction (Acute) Accelerated hypertension (Acute) Anxiety state (Acute) Vitamin D deficiency Unsteady gait Neuropathic pain Mixed hyperlipidemia Gout Fatigue (Chronic) Erosive osteoarthritis of right hand CKD (chronic kidney disease), stage III Family History Other Family history non-contributory Social History Preferred Language: [place] Communication Ability: Effective Beliefs That Will Affect Care: None marital status: Current Living Situation: Spouse current occupational status: retired Feels Safe at Home: Yes Smoking Status: Never smoker Second Hand Exposure: No Hx Alcohol Use: No Hx Substance Use: No Review of Systems Constitutional: no fever and no chills Eyes: + corrective lenses; no diplopia Ear, Nose, Mouth, Throat: no ear pain Respiratory: no cough and no hemoptysis Cardiovascular: no chest pain Gastrointestinal: no abdominal pain, no nausea and no vomiting Genitourinary: + dysuria (intermittent), + urinary frequency, + urinary urgency and + nocturia; no hematuria, no flank pain and no pelvic pain Musculoskeletal: no back pain and no stiffness Integumentary: no acne and no rash Neurologic: no falls, no numbness and no paresthesia Psychiatric: no hopelessness Endocrine: no polydipsia and no polyphagia Hematologic / Lymphatic: no easy bleeding Physical Exam Constitutional: no acute distress Eyes: no nystagmus ENMT: Ears: no hearing impairment and no external ear abnormality Neck: trachea midline Respiratory: no respiratory distress, does not use accessory muscles and no cough Cardiovascular: Vessels: no JVD Chest (Breasts): Chest: no mass Gastrointestinal (Abdomen): Percussion/Palpation: abdomen soft; abdomen nontender Musculoskeletal: Head/Neck/Chest: normocephalic and head atraumatic Skin: no rashes and no ulcers Neurologic: awake; not confused and not obtunded Motor/Sensory: no tremor Psychiatric: Orientation: alert and oriented x 3 Eye Contact: good eye contact Mood: no depressed mood Genitourinary: no CVA tenderness bladder nontender, nondistended Lymphatic: no lymphedema Results & Data Vital Signs (Past 12 Hours) Vital Signs Temp Pulse Resp BP Pulse Ox 08/13/18 07:10 36.8 C 73 20 159/76 H 96 08/12/18 23:02 37 C 69 20 125/77 97
[2018-08-13] MEDS ORDERED: PHENAZOPYRIDINE HCL 100 MG TAB PO PRN (10:15)
--- NOTE | 2018-08-13 15:32 | Discharge Summary ---
Date of Service August 13, 2018 Admission HPI Per Admitting Provider 83-year-old female with anxiety state and doxycycline side effects with nausea and anorexia. She is not sleeping and appears to be very anxious. She was recently found to have IgM positive Lyme disease and has been taking oral doxycycline that is causing some GI symptoms. She presents to the ED today because she is just exhausted from not sleeping and she is not eating well either. She has generalized weakness and chronic paresthesia of both lower extremities from chronic peripheral neuropathy. She recently had an IgM Lyme test that was positive. Western blot is pending. She has been taking oral doxycycline. Head CT scan is negative for any acute changes. This does not appear to be an acute ACCOUNTING SPECIALIST event. She appears to have accelerated hypertension due to her anxiety state accompanied by doxycycline side effects. Recent IgM positive Lyme test will be evaluated by infectious disease consultation. OT and PT assessments requested. Will administer Rocephin 2 g IV daily to replace doxycycline at this time. Principal Diagnosis Weakness/Urinary Symptoms Discharge Exam Constitutional WD/WN, vitals as above Eyes + anicteric sclerae ENMT Ears: no hearing impairment Neck trachea midline Respiratory normal respiratory effort, lungs clear to auscultation Cardiovascular RRR, no murmur, no edema Gastrointestinal (Abdomen) Inspection/Auscultation: normal bowel sounds Percussion/Palpation: abdomen soft; abdomen nontender Musculoskeletal Head/Neck/Chest: normocephalic, head atraumatic and neck supple Skin no rashes, warm and dry Neurologic moves all extremities Psychiatric A+Ox3, euthymic affect Discharge Data Allergies Allergy/AdvReac Type Severity Reaction Status Date / Time allopurinol Allergy Unknown ENDED UP Verified 08/10/18 09:42 IN THE HOSPITAL-UNSURE OF SYMPTOMS Bactrim Allergy Unknown UNKNOWN Verified 05/25/17 07:33 sulfamethoxazole Allergy Unknown UNKNOWN Verified 08/10/18 09:42 trimethoprim Allergy Unknown UNKNOWN Verified 08/10/18 09:42 HERNANDEZ Inhibitors AdvReac Mild COUGH Verified 08/10/18 12:20 atorvastatin AdvReac Mild SORE Verified 08/10/18 12:20 MUSCLES meperidine AdvReac Mild COULD NOT Verified 08/10/18 12:20 WAKE UP AFTER simvastatin AdvReac Mild SORE Verified 08/10/18 12:20 MUSCLES Consultations 08/10/18 10:40 ED Decision to Admit Stat 06/22/19 12:17 Consult Infectious Diseases Routine 08/11/18 14:27 Consult Case Management - Discharge Planning Routine 08/12/18 16:21 Consult Urology Routine Ordered Studies 08/10/18 09:07 CT head/brain wo con Stat 08/12/18 10:41 US retro bladder ltd Routine Hospital Course (1) Generalized weakness: - Appears this is a rather chronic issue and progressive - possibility from chronic Lyme fatigue vs deconditioning vs dehydration vs poor sleep -- Does report improvement in symptoms while in hospital - IgM is positive with IgG being negative with Western blot pending - does not appear this is an acute Lyme issue - did convert to Rocephin daily for empiric treatment - ID following - appreciate input with serology - planning to complete a course of Rocephin with plans for daily MTU treatments (until August 23) -- Awaiting Western Blot testing - ID does recommend possible evaluation for rheumatological issues/HIDA/CT Abd/Pelvis - She does have a lot of broken sleep and this may be part of her issue with fatigue/generalized weakness; did perform ESR/CRP which was WNL; doesn't endorse proximal muscle weakness to suggest PMR (2) Acute Lyme disease: - Recent IgM test positive; started on Doxycycline in the ER on 08/07 but developed GI upset and converted to Ceftriaxone -- Doxy caused nausea/anorexia which has subsided - ID consulted, appreciate input. Will need 2 week course of IV abx; planning on MTU administration of Abx (3) Dysuria: - It doesn't appear she is really having painful urination more of difficulty with stream - this has been a chronic issue and progressive as well - Reports sometimes difficulty initiating urination and intermittent breaks in her stream - reports she normally lifts her abdomen and gives suprapubic pressure and her bladder empties more - She did have significant pain on 08/11 which bladder scan showed 400 cc urine and she was not able to urinate but then when laying in bed was incontinent to large amount of urine - maybe overflow incontinence?, neurogenic bladder?, prola pse? interstitial cytitis- suspect pain last night was from bladder distention - Has been on Rocephin for multiple days so likely not infectious; UCx only with diphtheroids and gamma strep, not enterococcus - Bladder U/S completed - no mention of bladder wall thickening or debris to suggest sediment/stones; KUB on admission without stones - Patient seems to be implementing some bladder retraining which seems to help - she reports she tries to empty her bladder every 45 minutes to prevent the urgency feeling which is helping - is experiencing nocturia which is interrupting sleep which may be a large component of her generalized weakness/fatigue; also on Dyazide which could be contributing to nocturia - Consulted Urology - planning on outpatient F/U for more evaluation and intervention; did start Flomax daily (4) Accelerated hypertension: - This appears to be more situational/anxiety provoked and improving - Continue Dyazide at this time - also likely contributing to nocturia - Will hold on further medications to prevent hypotension - she does have a BP cuff at home which she monitors - BP did improve with reduction in anxiety (5) Anxiety state: - Supportive care - Xanax was scheduled when she was first admitted which she did tolerate without issue - did have a discussion with her in regards to this type of medication and its addictive quality and the possibility of sedation or confusion in older individuals. She did tolerate this well in-house and will trial PRN use. She may benefit from an SSRI for chronic management of anxiety. 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 Mcqueen (7) Peripheral neuropathy: - Chronic, unknown etiology - suspected do to Lyme and seems to be more limited to the toes Total Time Total Time Spent Total Time Spent (In Minutes): Greater than 30 minutes Discharge Plan Discharge Items Patient Disposition: Home - Self-Care Reason For Visit: WEAKNESS,ANXIETY Discharge Diagnosis: Weakness/Urinary Symptoms Discharge Goals: Decrease discomfort, Improve disease control and Improve function Activity: Resume your previous activity Non-emergency contact: Primary Care Provider and Urologist Call non-emergency contact if: you have any medication questions, your symptoms worsen and you have a fever Follow-up/Referrals: Gaby Mcelroy CRNP [Primary Care Provider] - 08/16/18 10:30 am (follow up appt at your primary care physician office with the physician assistant spa manager, Toshia) Diet: Regular Addtl Provider Instructions: Instructions per your Urology Team: Continue Tamsulosin per Urology every night. This will help with bladder emptying. Monitor for dizziness/lightheadedness. Continue timed voiding (emptying your bladder every 2 hours) and double voiding (voiding, sitting on toilet for a couple minutes, then emptying again). We will arrange for close follow-up with Dr. Cuevas. We will call you to arrange. Weakness: - This could be a chronic lyme issue but weakness can be hard to pinpoint a cause as normally there can be multiple factors causing it. For instance, your disrupted sleep could be contributing to your fatigue. Recommend to try and stay active but take breaks as needed when you do get fatigued. - Your lyme studies are send out labs and are still pending - these can be followed up one when you see your family doctor - Regardless you are being covered with Rocephin which is an antibiotic that treats tick-borne illnesses. You will need to [facility] to get this antibiotic until August 23. Urinary Symptoms: - Please follow the directions above from the Urology team. They will call with an appointment with Dr. Cuevas for further testing and to determine the cause of these issues. In the meantime, continue your scheduled bathroom breaks to prevent issues - The Flomax will be given once a day at night time and no restrictions in regards to food. - The Pyridium is just as needed up to 3 times a day. Recommend to just spread this out evenly throughout the day but if you don't need it then you do not need to bother with it Blood Pressure: - Your blood pressure is looking better compared to when you first came in. Continue your normal blood pressure medication. Flomax which was started for the urinary system can also lower your blood pressure so it can give you a little better control on this. If your feel lightheaded or dizzy or notice your blood pressure is running low call your family doctor Anxiety: - We can give you a prescription for Xanax to use as needed up to twice a day. This medication can cause you get be sleepy and for some it can make them seem confused. You had several doses here and did well on it. It is a controlled substance meaning it is regulated due to it having the potential to be addicting. - Here we used it in the morning and at night. But if you do not need it you can skip this medication or if you just need it once a day you can take it that way too. Just do not take more than twice a day - watermelon inspector it may not be the best option for anxiety. Please talk with your family doctor as you may benefit from an antidepressant which actually can help people with anxiety. Now these medicatons can take 3-4 weeks before they fully work and therefore would need monitoring to make sure they are helpful Prescriptions: New alprazolam 0.25 mg Tablet 0.25 mg PO BID PRN (Reason: Anxiety) 3 Days Qty: 6 RF: 0 tamsulosin 0.4 mg Capsule 0.4 mg PO HS 30 Days Qty: 30 RF: 0 phenazopyridine [Pyridium] 100 mg Tablet 100 mg PO TID PRN (Reason: Urinary Pain) 5 Days Qty: 15 RF: 0 ceftriaxone 2 gram recon soln 2 gm IV DAILY Qty: 1 RF: 0 Continued Metamucil 3.4 gram/5.4 gram powder 1 tbs PO DAILY RF: 0 hydrocortisone 2.5 % cream with perineal applicator 1 applic [place] DIRECTED PRN (Reason: Hemorrhoids) Qty: 1 RF: 0 multivitamin [Multiple Vitamins] tablet 1 tab PO DAILY RF: 0 cholecalciferol (vitamin D3) 2,000 unit tablet 2,000 unit PO DAILY RF: 0 docusate sodium 250 mg capsule 250 mg PO QAM RF: 0 aspirin 325 mg tablet,delayed release (DR/EC) 325 mg PO QAM RF: 0 Florastor 250 mg capsule 250 mg PO BID Qty: 42 RF: 0 triamterene-hydrochlorothiazid 37.5-25 mg capsule 1 cap PO QAM RF: 0 Discontinued doxycycline hyclate 100 mg tablet 100 mg PO BID RF: 0 Stand-Alone Forms: [facility] Discharge Orders: Discharge Order (Routine); Ordered 08/13/18 Ordered By: Ofe García Admission Data Admit Date/Time: 08/11/18 13:27 Attending Provider: Jaison Brady Admit Provider: Norbert Suarez Primary Care Provider: Gaby Mcelroy Other Providers: Norbert Suarez ; Jeanie Willingham ; Jayesh Álvarez Service: Medical Other Interventions: Discharge Summary Assessment (RN) Last Done: 08/13/18 13:56 Pending Studies at Discharge: Yes Studies:: Lyme studies DC Date/Time DO NOT enter until pt leaves facility: 08/13/18 15:10
[2018-08-13 16:56] LABS: Anaplasma phagocytophila IgM <1:20 (<1:20); Ehrlichia chaff IgG Ab <1:64 (<1:64); Ehrlichia chaff IgM Ab <1:20 (<1:20)
[2018-08-13] MEDS ORDERED: TAMSULOSIN HCL 0.4 MG CAP PO SCH (21:00)
== END 2018-08-13 15:10 | disposition home or self-care (01) | DRG 869 ==
LOC: ED 08:43 → 4E 08:43 → SUATTDRO 11:10 → 4E 11:48

== ENCOUNTER 2019-02-14 19:23 | Inpatient (IN) ==
[2019-02-14] MEDS ORDERED: SODIUM CHLORIDE 0.9% 1000ML 1,000 ML IV ONE (20:54)
[2019-02-14] MEDS ORDERED: fentaNYL citrate 100 MCG/2 ML VIAL IV STA (20:54)
[2019-02-14 21:40] LABS: Basophils # (auto) 0.02 K/uL (0-0.2); Basophils % (auto) 0.1 %; Eosinophils # (auto) 0.16 K/uL (0-0.5); Eosinophils % (auto) 1.1 %; Hematocrit (blood only) 34.9 % (37-47); Hemoglobin 11.7 g/dL (12.0-16.0); Immature Granulocytes # (auto) 0.08 K/uL (0.00-0.02); Immature Granulocytes % (auto) 0.5 %; Lymphocytes # (auto) 1.98 K/uL (1.2-3.4); Mean Corpuscular Hgb Conc 33.5 g/dL (32-36); Mean Corpuscular Volume 89.5 fL (80-100); Mean Platelet Volume 10.7 fL (7.4-10.4); Monocytes # (auto) 1.48 K/uL (0.11-0.59); Monocytes % (auto) 9.7 %; Neutrophils # (auto) 11.49 K/uL (1.4-6.5); Neutrophils % (auto) 75.6 %; Platelet Count 255 K/uL (130-400); RDW Coefficient of Variation 15.2 % (11.5-14.5); RDW Standard Deviation 49.2 fL (36.4-46.3); White Blood Count 15.21 K/uL (4.8-10.8)
[2019-02-14 21:58] LABS: Alanine Aminotransferase 24 U/L (12-78); Albumin Level 2.6 gm/dl (3.4-5.0); Aspartate Aminotransferase 20 U/L (15-37); BUN Creatinine Ratio 25.1 (10-20); Blood Urea Nitrogen 45 mg/dl (7-18); Calcium 9.3 mg/dl (8.5-10.1); Carbon Dioxide 29 mmol/L (21-32); Chloride 100 mmol/L (98-107); Est GFR (African American) 29.2; Est GFR (Non-African American) 25.2; Glucose 120 mg/dl (70-99); Lipase 187 U/L (73-393); Potassium 4.2 mmol/L (3.5-5.1); Sodium 135 mmol/L (136-145)
[2019-02-14 22:01] LABS: Albumin Globulin Ratio 0.7 (0.9-2); Alkaline Phosphatase 136 U/L (45-117); Bilirubin,Total 0.3 mg/dl (0.2-1); Globulin 3.9 gm/dl (2.5-4.0); Total Protein 6.5 gm/dl (6.4-8.2)
[2019-02-14] MEDS ORDERED: IOVERSOL 100ml IV PRN (22:15)
[2019-02-14 22:20] LABS: Appearance Urine Clear (Clear); Bilirubin Urine Negative (Negative); Blood Urine Negative (Negative); Color Urine Yellow; Glucose Urine UA Negative (Negative); Ketones Urine Negative (Negative); Leukocyte Esterase Urine Negative (Negative); Nitrite Urine Negative (Negative); Protein Urine Negative (Negative); Urobilinogen Urine Negative (Negative); pH Urine 6.5 (4.5-7.5)
--- NOTE | 2019-02-14 22:51 | CT Scan Report ---
ABDOMEN AND PELVIS CT WITH IV CONTRAST CT DOSE: 590.96 mGy.cm HISTORY: Acute right upper quadrant and right flank pain RUQ/Right Flank pain TECHNIQUE: Multiaxial CT images of the abdomen and pelvis were performed following the IV administrat ion of 83 cc of Optiray 320, A dose lowering technique was utilized adhering to the principles of AL PEDRO. COMPARISON STUDY: CT abdomen and pelvis 11/28/2014 FINDINGS: Trace right pleural effusion with linear right basilar consolidation and subpleural groundglass densi ties. There are questioned segmental and subsegmental pulmonary emboli within the right lung base (fo r example please see image 28 of series 3). Mild left basilar atelectasis/scarring. There is no pneum atosis or pneumoperitoneum. Spleen, and pancreas appear unremarkable. Left adrenal gland appears surgically absent. Mild right ad renal gland thickening. Contracted gallbladder. No biliary ductal dilation. 6 mm hypodense focus of t he right hepatic lobe suggests probable cyst. Liver is otherwise unremarkable. Patency of the hepatic and portal veins. Surgically absent left kidney. Intermediate attenuating 1.3 cm lesion of the infer ior pole right kidney appears stable in size from 2015. No right-sided renal calculi or hydronephrosi s. 2.6 cm lateral right urinary bladder diverticulum. Mild bladder wall thickening. Uterus and adnexa are unremarkable. Moderate mixed plaque the abdominal aorta without aneurysm. No adenopathy. 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 No bowel obstruction or bowel wall thickening. Colonic diverticulosis without acute diverticulitis. M ild to moderate fecal retention. Terminal ileum and appendix are unremarkable. No ascites or mesenter ic inflammation. Degenerative changes of the spine, pelvis and hips. Multiple subacute to chronic lisa earing posterior left rib fractures. IMPRESSION: 1. Trace right pleural effusion with right lung base opacities suggestive of atelectasis and/or pulmo nary infarct. Additionally, there is suggestion of segmental and subsegmental pulmonary emboli of the basal right lower lobe. Correlation with CTA of the chest recommended. 2. No bowel obstruction or bowel wall thickening. 3. Colonic diverticulosis without acute diverticulitis. 4. Urinary bladder diverticulum with mild urinary bladder wall thickening. Correlate with urinalysis. 5. Mild to moderate fecal retention. 6. 1.3 cm intermediate attenuating lesion of the inferior pole right kidney. This appears unchanged i n size from the 2014 study and may reflect a complex cyst however is technically indeterminate. 7. Additional findings as above. ACT 112: Negative or not required by law. The above report was generated using voice recognition software. It may contain grammatical, syntax o r spelling errors. Electronically signed by: Gil Malone M.D. 02/14/2019 10:50 PM
[2019-02-14] MEDS ORDERED: Heparin IV Low Dose WITH Bolus IV STA (23:01)
[2019-02-14] MEDS ORDERED: HEPARIN SODIUM/DEXTROSE 25,000 UNITS/500 ML BAG IV SCH (23:15)
[2019-02-14] MEDS ORDERED: HEPARIN SOD 5,000 UNIT/0.5 ML VIAL ONE (23:20)
[2019-02-14 23:36] LABS: Troponin I < 0.015 ng/ml (0-0.045)
[2019-02-15 01:05] LABS: INR 1.1 (0.9-1.1); Prothrombin Time 11.3 Seconds (9.0-12.0)
--- NOTE | 2019-02-15 03:58 | History & Physical Report ---
Date of Service February 15, 2019 Assessment & Plan (1) DVT (deep venous thrombosis): Marjorie is an 84-year-old female with a past medical history of CKD 4, Lyme disease, gout, arthritis, hypertension who presents with right chest pain and who was found to have DVT DVT,? PE of basilar right lower lobe Received heparin bolus in ED Admit on heparin GTT No increased oxygen requirement, hemodynamically stable Continue monitoring on telemetry Left lower extremity Popliteal DVT confirmed on ultrasound No TPA. V/Q study deferred in setting of CT abdomen findings with positive Doppler. Abdominal pain CT abdomen shows diverticulosis without diverticulitis, fecal retention Suspect 2/2 constipation Lactulose daily Afebrile, low concern for infectious process Hypertension Continue triamterenehydrochlorothiazide daily Continue aspirin daily Anxiety Continue sertraline 50 mg daily Continue HUMAN RESOURCES EXECUTIVE lorazepam 0.5 mg as needed Urinary retention Continue tamsulosin 0.4 mg daily DVT prophylaxis: Anticoagulated as above FEN GI: Regular diet CODE STATUS: DNR/DNI (2) Epigastric abdominal pain: (3) Chronic kidney disease, stage 4 (severe): (4) Anxiety: (5) Lyme disease: (6) Peripheral neuropathy: (7) Generalized weakness: (8) Anxiety state: (9) Gout: (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 She reports that she has had several days of sided chest pain underneath her right breast which is worse with inspiration. She denies shortness of breath, but reports that her has told her that she has been breathing more heavy. She denies fever, chills, sweats. She endorses fatigue. She has not been on any long car trips, and does not have a history of cancer or prior blood clots. She endorses left-sided abdominal pain intermittently. She reports a long history of fatigue for which she has seen multiple Lyme specialists, she was treated with an antibiotic for Lyme several years ago and despite multiple follow-ups has not been treated since. She has not pulled any ticks off of her as far she knows. She continues to see my specialists for fatigue. Denies joint pain, muscle pain, joint swelling but endorses fatigue.Trace pleural effusion with concern for atelectasis versus pulmonary infarct was noted on the upper slices of CT abdomen, follow-up Dopplers showed DVT. She started on heparin bolus with subsequent drip in the emergency department. Past medical history: CKD, Lyme disease, anxiety, hypertension Past surgical history: Tubal ligation, left nephrectomy Family history: CKD Social history: , lives with her . Denies alcohol use. Denies substance use. Denies current former tobacco use. CODE STATUS: DNR. Would be okay with intubation for respiratory support as a temporary measure, but does not want chest compressions but she could. Allergies Allergy/AdvReac Type Severity Reaction Status Date / Time allopurinol Allergy Unknown ENDED UP Verified 02/14/19 23:29 IN THE HOSPITAL-UNSURE OF SYMPTOMS Bactrim Allergy Unknown UNKNOWN Verified 05/25/17 07:33 sulfamethoxazole Allergy Unknown UNKNOWN Verified 02/14/19 23:29 trimethoprim Allergy Unknown UNKNOWN Verified 02/14/19 23:29 HERNANDEZ Inhibitors AdvReac Mild COUGH Verified 02/14/19 23:29 atorvastatin AdvReac Mild SORE Verified 02/14/19 23:29 MUSCLES meperidine AdvReac Mild COULD NOT Verified 02/14/19 23:29 WAKE UP AFTER simvastatin AdvReac Mild SORE Verified 02/14/19 23:29 MUSCLES Home Medications Home Medications Medication Instructions Recorded Confirmed Type aspirin 325 mg tablet,delayed 325 mg PO QAM tab 08/02/18 02/14/19 History release cholecalciferol (vitamin D3) 2,000 2,000 unit PO DAILY tab 08/02/18 02/14/19 History unit tablet docusate sodium 250 mg capsule 250 mg PO QAM cap 08/02/18 02/14/19 History multivitamin 1 tab PO DAILY 08/05/18 02/14/19 History psyllium husk 3.4 gram/5.4 gram 1 tbs PO DAILY 08/05/18 02/14/19 History oral powder triamterene-hydrochlorothiazid 1 cap PO QAM 08/10/18 02/14/19 History hydrocortisone 2.5 % topical cream 1 applic DC TID PRN #1 gm 10/18/18 02/14/19 History with perineal applicator tamsulosin 0.4 mg capsule 0.4 mg PO DAILY 10/18/18 02/14/19 History atovaquone 750 mg/5 mL oral 750 mg PO QAM ml 12/31/18 02/14/19 History suspension lorazepam 0.5 mg tablet 0.25 mg PO TID PRN 30 Days #45 tab 12/31/18 02/14/19 Rx sertraline 50 mg tablet 50 mg PO DAILY #90 tab 12/31/18 02/14/19 Rx lactobacillus combination no.9 4 4,000 mmu cells PO DAILY #30 cap 01/02/19 02/14/19 Rx billion cell capsule Past Med/Surg History Family History (Updated 02/15/19 @ 01:42 by Faustina Bradley) Family/Other Chronic kidney disease (CKD) Mother Hx of cholecystectomy Other Family history non-contributory Social History Preferred Language: Ecuadorean Communication Ability: Effective Entry Specialists Required: No Beliefs That Will Affect Care: None marital status: Current Living Situation: Spouse current occupational status: retired Other Information That Helps Us Care for You: No Feels Safe at Home: Yes Safety Concerns: Feels Safe At This Time Smoking Status: Never smoker Do You Dip or Chew Tobacco: No ; Second Hand Exposure: No ; Tobacco Cessation Education Requested by Patient: No Hx Alcohol Use: No Hx Substance Use: No Review of Systems Review of Systems: All systems reviewed & are unremarkable except as noted in HPI & below Physical Exam Physical Exam: General: A&Ox3. NAD. Cooperative. HEENT: Atraumatic, normocephalic. Pulm: CTAB A&P. -wheezes, -rales, -rhonchi. Symmetrical chest rise. No increase work of breathing. No respiratory distress. Cardiac: RRR, -mrg. Radial pulses intact and symmetrical. Abdominal: Mildly tender to palpation in left lower quadrant. No rebound tenderness. Soft. Bowel sounds present. Extremities: Lower extremities without edema, tender to palpation bilaterally. No warmth. No erythema. PT pulses intact bilaterally. Results & Data Vital Signs (Past 12 Hours) Vital Signs Temp Pulse Resp BP Pulse Ox 02/15/19 02:01 80 20 93 02/15/19 02:00 78 19 127/61 93 02/15/19 01:31 84 18 94 02/15/19 01:30 78 22 162/55 H 93 02/15/19 01:10 80 19 138/68 93 02/15/19 01:09 94 H 02/15/19 00:31 81 20 93 02/15/19 00:30 84 21 140/59 L 91 02/15/19 00:01 79 20 94 02/15/19 00:00 83 19 138/84 94 02/14/19 23:31 86 22 95 02/14/19 23:30 81 21 141/73 H 95 02/14/19 23:01 86 22 93 02/14/19 23:00 86 20 134/59 L 92 02/14/19 22:31 86 21 91 02/14/19 22:30 86 20 140/61 92 02/14/19 22:01 87 22 95 02/14/19 22:00 88 21 139/71 93 02/14/19 21:40 101 H 26 H 162/75 H 94 02/14/19 21:31 88 19 93 02/14/19 21:30 89 20 143/66 H 94 02/14/19 21:01 90 22 96 02/14/19 21:00 90 21 150/65 H 96 02/14/19 20:31 90 21 93 02/14/19 20:30 90 21 143/75 H 97 02/14/19 20:09 91 H 25 H 82 L 02/14/19 20:05 94 H 23 178/66 H 93 02/14/19 19:32 36.5 C 96 H 18 148/77 H 97 Supervising Physician Co-Signing Physician Notes Attending addendum: I have physically seen this patient, have supervised the medical residents activities, and agree with the H&P unless as otherwise noted. Assessment and Plan: Left lower extremity DVT/right lower chest pain read as PE on CT abdomen pelvis with contrast- Heparin drip begun in the ED. Follow per protocol. If questions regarding determination of PE, may order VQ scan in the a.m. Abdominal pain- CT abdomen pelvis negative for acute findings other than fecal retention, which is likely cause of abdominal discomfort. Work on bowel regimen and IV fluids. Lyme disease- Reports that she is following with a Lyme expert Dr. Refugio Luna with [facility] whom she travels to see, and had just been seen the morning of admission, and who referred patient to the ED due to symptomatology Remainder orders and notations as noted Resident Activity Tracking Resident Involvement: Resident Care Provided Care Provided: Adult [facility] Medicine
[2019-02-15] MEDS ORDERED: ACETAMINOPHEN 325 MG TAB PO PRN (04:53)
[2019-02-15] MEDS ORDERED: LORazepam 0.5 MG TAB PO PRN (04:53)
[2019-02-15] MEDS ORDERED: HYDROCORTISONE HC 2.5% CRM 30GM TUBE EXT PRN (04:53)
[2019-02-15 05:23] LABS: Hematocrit (blood only) 31.8 % (37-47); Hemoglobin 10.7 g/dL (12.0-16.0); Mean Corpuscular Hemoglobin 29.6 pg (25-34); Mean Corpuscular Hgb Conc 33.6 g/dL (32-36); Mean Corpuscular Volume 88.1 fL (80-100); Mean Platelet Volume 10.4 fL (7.4-10.4); Platelet Count 217 K/uL (130-400); RDW Coefficient of Variation 15.1 % (11.5-14.5); RDW Standard Deviation 48.8 fL (36.4-46.3); Red Blood Count 3.61 M/uL (4.2-5.4)
[2019-02-15 05:45] LABS: Partial Thromboplastin Ratio 3.7
[2019-02-15 06:22] LABS: Partial Thromboplastin Time 101.2 Seconds (21.0-31.0)
[2019-02-15] MEDS: ATOVAQUONE 750 MG/5 ML UDC PO SCH (07:48)
[2019-02-15] MEDS: PSYLLIUM 58.6% POWDER PACKET PO SCH (07:48)
[2019-02-15] MEDS: LACTOBACILLUS ACIDOPHILUS (FLORANEX) TAB PO SCH (07:48)
[2019-02-15] MEDS: TAMSULOSIN HCL 0.4 MG CAP PO SCH (07:49)
[2019-02-15] MEDS: TRIAMTERENE/HCTZ 37.5/25MG CAP PO SCH (07:49)
[2019-02-15] MEDS: SERTRALINE HCL 50 MG TABLET PO SCH (07:49)
[2019-02-15] MEDS: CHOLECALCIFEROL 1,000 UNITS TAB PO SCH (07:49)
[2019-02-15] MEDS: MULTIVITAMIN TAB PO SCH (07:49)
[2019-02-15] MEDS: DOCUSATE SODIUM SYRUP 100 MG/10 ML UDC PO SCH (07:49)
[2019-02-15] MEDS ORDERED: ASPIRIN 325 MG ECTAB PO SCH (09:00)
--- NOTE | 2019-02-15 10:11 | Ultrasound Report ---
BILATERAL LOWER EXTREMITY VENOUS DOPPLER CLINICAL HISTORY: Bilateral leg swelling. COMPARISON STUDY: Left lower extremity venous Doppler ultrasound November 29, 2014. TECHNIQUE: Sonography of the deep venous system of the bilateral lower extremities was performed. Co mpression and augmentation were evaluated. FINDINGS: There is no deep venous thrombus within the right lower extremity. Note is made of occlusiv e deep venous thrombus within the left popliteal and posterior tibial veins. IMPRESSION: 1. Deep venous thrombus within the left popliteal and posterior tibial veins. 2. No evidence of deep venous thrombus within the right lower extremity. ACT 112: Negative or not required by law. Electronically signed by: Kareem Araujo M.D. 02/15/2019 10:10 AM
--- NOTE | 2019-02-15 13:02 | XRay Report ---
XR chest 1V portable CLINICAL HISTORY: right lung infarct, PE COMPARISON STUDY: Chest radiograph December 07, 2018. FINDINGS: Lung lungs are diminished. There is no evidence for pulmonary edema. Cardiomediastinal silh ouette is stable. Right basilar opacity is noted with a small right pleural effusion. Left basilar op acity favors atelectasis. IMPRESSION: Bibasilar opacities and a small right pleural effusion. Low lung volumes. ACT 112: Negative or not required by law. Electronically signed by: Kareem Araujo M.D. 02/15/2019 1:01 PM
[2019-02-15 14:02] LABS: Partial Thromboplastin Ratio 1.4; Partial Thromboplastin Time 37.3 Seconds (21.0-31.0)
[2019-02-15] MEDS ORDERED: PERFLUTREN LIPID MICROSPHERE (DEFINITY) IV ONE (14:30)
[2019-02-15] MEDS ORDERED: HEPARIN IV BOLUS 4,500 UNITS in SYRINGE 0 ML IV ONE (14:45)
[2019-02-15 21:00] LABS: Partial Thromboplastin Ratio 2.7
[2019-02-15 21:02] LABS: Partial Thromboplastin Time 72.6 Seconds (21.0-31.0)
--- NOTE | 2019-02-15 21:11 | Hospitalist Progress Note ---
Date of Service February 15, 2019 Results & Data Vital Signs (Past 12 Hours) Vital Signs Temp Pulse Resp BP Pulse Ox 02/15/19 18:53 36.7 C 94 H 16 137/71 93 02/15/19 15:57 36.5 C 81 24 155/64 H 98 02/15/19 11:40 36.5 C 80 18 139/65 97 PG Care Time/CCT Total # of Minutes Spent Total Time Spent with Patient: Total time spent is greater than 50% in coordination of care (as documented) at patient's floor/unit and/or counseling patient:
--- NOTE | 2019-02-15 21:18 | Communication Note ---
Date of Service: February 15, 2019 Patient was seen and examined. Admitted the same day therefore I will not be billing for this encounter. Feels slightly improved since admission but still having bilateral leg pain and swelling despite DVT just on left leg. She does not feel at her baseline and concern from her family she is unable to manage at home. PE - Discussed options of warfarin vs. Eliquis given eGFR borderline to start this. Since she goes on and off antibiotics frequently would recommend against warfarin as likely to interact. No prior bleeding episodes. Will start Eliquis 10mg BID for 7 days then 5mg BID. Unprovoked - recommend treatment for 6 months with anticoagulation testing after treatment finished. Echo performed to assess for right heart failure given b/l leg swelling.
[2019-02-15] MEDS: APIXABAN 5 MG TABLET PO SCH (21:35)
--- NOTE | 2019-02-15 22:38 | Billing Data ---
Date of Service February 15, 2019 Coding Level of Care Code 96894 Initial Inpt Care Lvl 3
[2019-02-16 07:51] LABS: Basophils # (auto) 0.02 K/uL (0-0.2); Basophils % (auto) 0.2 %; Eosinophils # (auto) 0.31 K/uL (0-0.5); Eosinophils % (auto) 3.1 %; Hematocrit (blood only) 30.9 % (37-47); Hemoglobin 10.4 g/dL (12.0-16.0); Immature Granulocytes # (auto) 0.03 K/uL (0.00-0.02); Immature Granulocytes % (auto) 0.3 %; Lymphocytes # (auto) 2.12 K/uL (1.2-3.4); Lymphocytes % (auto) 21.4 %; Mean Corpuscular Hemoglobin 29.5 pg (25-34); Mean Corpuscular Hgb Conc 33.7 g/dL (32-36); Mean Corpuscular Volume 87.8 fL (80-100); Mean Platelet Volume 9.5 fL (7.4-10.4); Monocytes # (auto) 0.89 K/uL (0.11-0.59); Neutrophils # (auto) 6.55 K/uL (1.4-6.5); Platelet Count 237 K/uL (130-400); RDW Coefficient of Variation 15.2 % (11.5-14.5); RDW Standard Deviation 48.9 fL (36.4-46.3); Red Blood Count 3.52 M/uL (4.2-5.4); White Blood Count 9.92 K/uL (4.8-10.8)
[2019-02-16 08:25] LABS: Alanine Aminotransferase 23 U/L (12-78); Albumin Level 2.1 gm/dl (3.4-5.0); Aspartate Aminotransferase 22 U/L (15-37); BUN Creatinine Ratio 27.3 (10-20); Blood Urea Nitrogen 42 mg/dl (7-18); Calcium 8.9 mg/dl (8.5-10.1); Carbon Dioxide 26 mmol/L (21-32); Chloride 107 mmol/L (98-107); Creatinine Clr Calc Pharmacy 28.8 ml/min; Est GFR (African American) 35.6; Est GFR (Non-African American) 30.7; Glucose 91 mg/dl (70-99); Potassium 4.6 mmol/L (3.5-5.1); Sodium 138 mmol/L (136-145)
[2019-02-16 08:28] LABS: Alkaline Phosphatase 119 U/L (45-117); Bilirubin Direct < 0.1 mg/dl (0-0.2); Bilirubin,Total 0.3 mg/dl (0.2-1); Total Protein 5.7 gm/dl (6.4-8.2)
[2019-02-16] MEDS: APIXABAN 5 MG TABLET PO SCH ×2 (08:42→21:28)
[2019-02-16] MEDS: TAMSULOSIN HCL 0.4 MG CAP PO SCH (08:42)
[2019-02-16] MEDS: TRIAMTERENE/HCTZ 37.5/25MG CAP PO SCH (08:42)
[2019-02-16] MEDS: MULTIVITAMIN TAB PO SCH (08:43)
[2019-02-16] MEDS: LACTOBACILLUS ACIDOPHILUS (FLORANEX) TAB PO SCH (08:43)
[2019-02-16] MEDS: CHOLECALCIFEROL 1,000 UNITS TAB PO SCH (08:43)
[2019-02-16] MEDS: DOCUSATE SODIUM SYRUP 100 MG/10 ML UDC PO SCH (08:44)
[2019-02-16] MEDS: SERTRALINE HCL 50 MG TABLET PO SCH (08:44)
[2019-02-16] MEDS: ASPIRIN 81 MG ECTAB PO SCH (08:44)
[2019-02-16] MEDS: ATOVAQUONE 750 MG/5 ML UDC PO SCH (08:44)
[2019-02-16] MEDS: PSYLLIUM 58.6% POWDER PACKET PO SCH (08:44)
[2019-02-16 16:51] LABS: Creatinine Urine Random 66.8 mg/dl; Protein Creatinine Ratio Urine 0.2 (0-0.2); Total Protein Urine Random 11.6 mg/dl (0-11.9)
--- NOTE | 2019-02-16 19:41 | Hospitalist Progress Note ---
Date of Service February 16, 2019 Assessment & Plan (1) Pulmonary embolism: Suspected based on CT A/P, US positive for left sided DVT and right pleuritic symptoms. (2) DVT (deep venous thrombosis): (3) Epigastric abdominal pain: (4) Chronic kidney disease, stage 4 (severe): (5) Anxiety: (6) Lyme disease: (7) Peripheral neuropathy: (8) Generalized weakness: (9) Anxiety state: (10) Gout: (11) Erosive osteoarthritis of right hand: (12) Discharge planning issues: Medically stable for discharge pending PT/OT evals and possible need for placement. Results & Data Vital Signs (Past 12 Hours) Vital Signs Temp Pulse Pulse Pulse Resp BP Pulse Ox 02/16/19 15:40 36.4 C L 79 17 149/78 H 97 02/16/19 12:53 36.6 C 78 16 152/81 H 89 L 02/16/19 08:15 36.6 C 82 18 150/79 H 96 PG Care Time/CCT Total # of Minutes Spent Total Time Spent with Patient: Total time spent is greater than 50% in coordination of care (as documented) at patient's floor/unit and/or counseling patient:
--- NOTE | 2019-02-17 08:56 | Emergency Department Note ---
Entered by Faustina Bradley acting as a scribe for Adrian López MD ED Provider Note Name: BAKARI CURRAN Age: 84 Arrives Via: Walk-In Informant: Patient, family CC: Abdominal pain HPI: 84F arrives for evaluation of abdominal pain. The patient states that she has been experiencing intermittent right sided abdominal pain for 4 days. She states that her pain is exacerbated when she takes a deep breath. She also reports bilateral leg swelling for the past 2 days. The patient has not taken any OTC medications for pain or swelling but family reports that she takes a water pill daily. 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 Family reports that she is currently on Doxycycline. Additionally the patient reports diarrhea but she states that she thinks this is due to all of the medications she is taking. She is unsure of fever. Of note, she has not had any recent falls or trauma to the abdomen. Additionally, the patient does not have a history of blood clots. She denies rash, dysuria, chest pain, and shortness of breath. The patient and her family offer no further concerns at this time. ROS: See above HPI for pertinent positives & negatives. A total of 10 systems reviewed and were otherwise negative. Past Medical History:CKD stage 4, mixed hyperlipidemia. HTN, hyponatremia, hypomagnesemia, see additional history below. Past Surgical History:Left nephrectomy, tubal ligation. Family History:CKD, cholecystectomy. Social History:Never smoker, no drug use, no ETOH Home Medications:See Below Allergies:See Below Vitals: * BP: 143/75 * Pulse: 90 * Resp: 21 * Temp: 36.5 C * O2 Sat: 93 * Delivery: Room Air Physical Exam: GENERAL: Patient is very uncomfortable appearing and in mild distress. EYES: No scleral icterus, unremarkable pupils. ENT: Mucous membranes moist, no nasal congestion. NECK: No masses appreciated, nomeningismus, trachea is midline. RESPIRATORY: No dyspnea. Clear to auscultation and equal bilaterally. No wheeze, no rhonchi. CARDIOVASCULAR: Regular rate and rhythm.No murmurs, rubs, gallops appreciated. GASTROINTESTINAL: Abdomen soft, exquisite RUQ tender to palpation, no peritonitis.Bowel sounds positive.No masses appreciated. BACK: No midline tenderness, no CVA tenderness EXTREMITIES: Normal motion all extremities, no cyanosis, no edema. NEUROLOGIC: Alert and oriented, no acute motor or sensory deficits, no focal weakness, cranial nerves grossly intact. SKIN: No rash, no jaundice, no diaphoresis. ED Course: Prior Medical Record, Triage/Nursing Notes, Medications, Allergies reviewed by Me Vital Signs: reviewed and remarkable for mild HTN Labs:Reviewed and remarkable for wbc elevation Interventions: saline lock, fentanyl IV, nss bolus IV, heparin bolus/gtt IV Imaging: See below EKG:Per My Interpretation: Indication Pulmonary Embolism: NSR 92 bpm, qtc 435. No Ectopy. No Ischemia. Compared to EKG 12/07/18, no significant changes. Reassessments/Times: * 2049: Past medical records reviewed. The patient was evaluated in room B11A. A complete history and physical exam was performed. * 2305: I checked on the patient. She consents to heparin. Her son notes that he has factor 5 disorder. The patient has never has a blood clot before. Blood pressure:Elevated - Referred to PCP - Benson to be Situational. Disposition:Hospitalization Differentials:Differential: Cholecystitis, Gallbladder disfunction, Hepatic Disfunction, Gastritis/PUD, Pancreatitis, ACS, Aortic Pathology, amongst other pathologies entertained. Medical Decision Makin yr old female with HTN, DLP, CKD arrives for evaluation of severe RUQ pain. On exam she very clearly has significant TTP over RUQ but also along right flank of abdomen. She has stable vitals but is quite uncomfortable. Pain controlled with IV fentanyl. IV fluids started with known CKD. With Cr 1.8 felt IV contrast indicated due to exam findings. CT surprisingly without intraabdoinal pathology, though does find high likelihood PEs. Suspect this was referred pain though unusual so TTP over right abdomen. With leg swelling and travel, in setting of son with Factor V, consistent with PE. Started IV heparin after reviewed risks/benefits. US legs confirms left leg DVT. Patient admitted to hospitalist service for further management. Impression: Pulmonary Embolism Infarct of Lung Acute deep vein thrombosis of left lower extremity Critical Care Time: I have personally spent greater than 30 minutes of critical care time in the direct management of this patient. Acute PE with infarct and use of heparin iv. This was a life/limb threatening event. This includes time spent evaluating patient, direct bedside care, chart review, placing orders, interpretation of diagnostic studies, discussion with consultants, patient, and family members, as well as other required patient management activities. This 30 minutes is in excess of all separately billable procedures. The scribe's documentation has been prepared under my direction and personally reviewed by me in its entirety. I confirm that the note above accurately reflec ts all work, treatment, procedures, and medical decision making performed by me. 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 Required: No Beliefs That Will Affect Care: None marital status: Current Living Situation: Spouse current occupational status: retired Other Information That Helps Us Care for You: No Feels Safe at Home: Yes Safety Concerns: Feels Safe At This Time Smoking Status: Never smoker Do You Dip or Chew Tobacco: No ; Second Hand Exposure: No ; Tobacco Cessation Education Requested by Patient: No Hx Alcohol Use: No Hx Substance Use: No Results & Data Vital Signs Vital Signs - 24 hr 02/14/19 19:32 02/14/19 20:05 02/14/19 20:09 Temperature 36.5 C Temperature Source Oral Pulse Rate 96 H 94 H 91 H Pulse Rate from SpO2 Sensor 96 H 105 H Respiratory Rate 18 23 25 H Respiratory Effort / Characteristics Non-Labored Spontaneous Respiratory Depth Normal Respiratory Pattern Regular Blood Pressure 148/77 H 178/66 H Blood Pressure Mean 100 96 Blood Pressure Position Sitting Pulse Oximetry 97 93 82 L Oxygen Delivery Method Room Air Sepsis Recent Fever Within 48 Hours No Sepsis New/Unexplained Change in Mental Status No Sepsis Action Taken by Nursing No Action Required 02/14/19 20:30 02/14/19 20:31 02/14/19 21:00 Temperature Temperature Source Pulse Rate 90 90 90 Pulse Rate from SpO2 Sensor 91 H 91 H 89 Respiratory Rate 21 21 21 Respiratory Effort / Characteristics Respiratory Depth Respiratory Pattern Blood Pressure 143/75 H 150/65 H Blood Pressure Mean 105 95 Blood Pressure Position Pulse Oximetry 97 93 96 Oxygen Delivery Method Sepsis Recent Fever Within 48 Hours Sepsis New/Unexplained Change in Mental Status Sepsis Action Taken by Nursing 02/14/19 21:01 02/14/19 21:30 02/14/19 21:31 Temperature Temperature Source Pulse Rate 90 89 88 Pulse Rate from SpO2 Sensor 90 90 87 Respiratory Rate 22 20 19 Respiratory Effort / Characteristics Respiratory Depth Respiratory Pattern Blood Pressure 143/66 H Blood Pressure Mean 98 Blood Pressure Position Pulse Oximetry 96 94 93 Oxygen Delivery Method Sepsis Recent Fever Within 48 Hours Sepsis New/Unexplained Change in Mental Status Sepsis Action Taken by Nursing 02/14/19 21:40 02/14/19 22:00 02/14/19 22:01 Temperature Temperature Source Pulse Rate 101 H 88 87 Pulse Rate from SpO2 Sensor 99 H 97 H 88 Respiratory Rate 26 H 21 22 Respiratory Effort / Characteristics Respiratory Depth Respiratory Pattern Blood Pressure 162/75 H 139/71 Blood Pressure Mean 136 100 Blood Pressure Position Pulse Oximetry 94 93 95 Oxygen Delivery Method Sepsis Recent Fever Within 48 Hours Sepsis New/Unexplained Change in Mental Status Sepsis Action Taken by Nursing 02/14/19 22:30 02/14/19 22:31 02/14/19 23:00 Temperature Temperature Source Pulse Rate 86 86 86 Pulse Rate from SpO2 Sensor 87 86 92 H Respiratory Rate 20 21 20 Respiratory Effort / Characteristics Respiratory Depth Respiratory Pattern Blood Pressure 140/61 134/59 L Blood Pressure Mean 89 69 Blood Pressure Position Pulse Oximetry 92 91 92 Oxygen Delivery Method Sepsis Recent Fever Within 48 Hours Sepsis New/Unexplained Change in Mental Status Sepsis Action Taken by Nursing 02/14/19 23:01 02/14/19 23:30 02/14/19 23:31 Temperature Temperature Source Pulse Rate 86 81 86 Pulse Rate from SpO2 Sensor 85 82 84 Respiratory Rate 22 21 22 Respiratory Effort / Characteristics Respiratory Depth Respiratory Pattern Blood Pressure 141/73 H Blood Pressure Mean 83 Blood Pressure Position Pulse Oximetry 93 95 95 Oxygen Delivery Method Sepsis Recent Fever Within 48 Hours Sepsis New/Unexplained Change in Mental Status Sepsis Action Taken by Nursing 02/15/19 00:00 02/15/19 00:01 02/15/19 00:30 Temperature Temperature Source Pulse Rate 83 79 84 Pulse Rate from SpO2 Sensor 83 80 86 Respiratory Rate 19 20 21 Respiratory Effort / Characteristics Respiratory Depth Respiratory Pattern Blood Pressure 138/84 140/59 L Blood Pressure Mean 99 89 Blood Pressure Position Pulse Oximetry 94 94 91 Oxygen Delivery Method Sepsis Recent Fever Within 48 Hours Sepsis New/Unexplained Change in Mental Status Sepsis Action Taken by Nursing 02/15/19 00:31 02/15/19 01:09 02/15/19 01:10 Temperature Temperature Source Pulse Rate 81 94 H 80 Pulse Rate from SpO2 Sensor 81 80 Respiratory Rate 20 19 Respiratory Effort / Characteristics Respiratory Depth Respiratory Pattern Blood Pressure 138/68 Blood Pressure Mean 94 Blood Pressure Position Pulse Oximetry 93 93 Oxygen Delivery Method Sepsis Recent Fever Within 48 Hours Sepsis New/Unexplained Change in Mental Status Sepsis Action Taken by Nursing 02/15/19 01:30 02/15/19 01:31 02/15/19 02:00 Temperature Temperature Source Pulse Rate 78 84 78 Pulse Rate from SpO2 Sensor 80 82 79 Respiratory Rate 22 18 19 Respiratory Effort / Characteristics Respiratory Depth Respiratory Pattern Blood Pressure 162/55 H 127/61 Blood Pressure Mean 81 89 Blood Pressure Position Pulse Oximetry 93 94 93 Oxygen Delivery Method Sepsis Recent Fever Within 48 Hours Sepsis New/Unexplained Change in Mental Status Sepsis Action Taken by Nursing 02/15/19 02:01 Temperature Temperature Source Pulse Rate 80 Pulse Rate from SpO2 Sensor 83 Respiratory Rate 20 Respiratory Effort / Characteristics Respiratory Depth Respiratory Pattern Blood Pressure Blood Pressure Mean Blood Pressure Position Pulse Oximetry 93 Oxygen Delivery Method Sepsis Recent Fever Within 48 Hours Sepsis New/Unexplained Change in Mental Status Sepsis Action Taken by Nursing Laboratory Data Result diagrams: 02/16/19 07:42 02/16/19 07:42 Lab Results 02/14/19 02/14/19 02/14/19 Range/Units 20:44 20:44 21:56 WBC 15.21 H (4.8-10.8) K/uL RBC 3.90 L (4.2-5.4) M/uL Hgb 11.7 L (12.0-16.0) g/dL Hct 34.9 L (37-47) % MCV 89.5 (80-100) fL MCH 30.0 (25-34) pg MCHC 33.5 (32-36) g/dL RDW Std Deviation 49.2 H (36.4-46.3) fL RDW Coeff of Liz 15.2 H (11.5-14.5) % Plt Count 255 (130-400) K/uL MPV 10.7 H (7.4-10.4) fL Immature Gran % (Auto) 0.5 % Neut % (Auto) 75.6 % Lymph % (Auto) 13.0 % Howard % (Auto) 9.7 % Eos % (Auto) 1.1 % Baso % (Auto) 0.1 % Immature Gran # (Auto) 0.08 H (0.00-0.02) K/uL Neut # (Auto) 11.49 H (1.4-6.5) K/uL Lymph # (Auto) 1.98 (1.2-3.4) K/uL Howard # (Auto) 1.48 H (0.11-0.59) K/uL Eos # (Auto) 0.16 (0-0.5) K/uL Baso # (Auto) 0.02 (0-0.2) K/uL PT (9.0-12.0) Seconds INR (0.9-1.1) APTT PTT Ratio Sodium 135 L (136-145) mmol/L Potassium 4.2 (3.5-5.1) mmol/L Chloride 100 (98-107) mmol/L Carbon Dioxide 29 (21-32) mmol/L Anion Gap 6.0 (3-11) BUN 45 H (7-18) mg/dl Creatinine 1.80 H (0.6-1.2) mg/dl Est Cr Clr Drug Dosing Not Reportable Est GFR ( Amer) 29.2 Est GFR (Non-Af Amer) 25.2 BUN/Creatinine Ratio 25.1 H (10-20) Glucose 120 H (70-99) mg/dl Calcium 9.3 (8.5-10.1) mg/dl Total Bilirubin 0.3 (0.2-1) mg/dl AST 20 (15-37) U/L ALT 24 (12-78) U/L Alkaline Phosphatase 136 H (45-117) U/L Troponin I < 0.015 (0-0.045) ng/ml Total Protein 6.5 (6.4-8.2) gm/dl Albumin 2.6 L (3.4-5.0) gm/dl Globulin 3.9 (2.5-4.0) gm/dl Albumin/Globulin Ratio 0.7 L (0.9-2) Lipase 187 (73-393) U/L Urine Color Yellow Urine Appearance Clear (Clear) Urine pH 6.5 (4.5-7.5) Ur Specific [place] 1.020 (1.000-1.030) Urine Protein Negative (Negative) Urine Glucose (UA) Negative (Negative) Urine Ketones Negative (Negative) Urine Blood Negative (Negative) Urine Nitrite Negative (Negative) Urine Bilirubin Negative (Negative) Urine Urobilinogen Negative (Negative) Ur Leukocyte Esterase Negative (Negative) 02/15/19 Range/Units 00:29 WBC (4.8-10.8) K/uL RBC (4.2-5.4) M/uL Hgb (12.0-16.0) g/dL Hct (37-47) % MCV (80-100) fL MCH (25-34) pg MCHC (32-36) g/dL RDW Std Deviation (36.4-46.3) fL RDW Coeff of Liz (11.5-14.5) % Plt Count (130-400) K/uL MPV (7.4-10.4) fL Immature Gran % (Auto) % Neut % (Auto) % Lymph % (Auto) % Howard % (Auto) % Eos % (Auto) % Baso % (Auto) % Immature Gran # (Auto) (0.00-0.02) K/uL Neut # (Auto) (1.4-6.5) K/uL Lymph # (Auto) (1.2-3.4) K/uL Howard # (Auto) (0.11-0.59) K/uL Eos # (Auto) (0-0.5) K/uL Baso # (Auto) (0-0.2) K/uL PT 11.3 (9.0-12.0) Seconds INR 1.1 (0.9-1.1) APTT TNP PTT Ratio TNP Sodium (136-145) mmol/L Potassium (3.5-5.1) mmol/L Chloride (98-107) mmol/L Carbon Dioxide (21-32) mmol/L Anion Gap (3-11) BUN (7-18) mg/dl Creatinine (0.6-1.2) mg/dl Est Cr Clr Drug Dosing Est GFR ( Amer) Est GFR (Non-Af Amer) BUN/Creatinine Ratio (10-20) Glucose (70-99) mg/dl Calcium (8.5-10.1) mg/dl Total Bilirubin (0.2-1) mg/dl AST (15-37) U/L ALT (12-78) U/L Alkaline Phosphatase (45-117) U/L Troponin I (0-0.045) ng/ml Total Protein (6.4-8.2) gm/dl Albumin (3.4-5.0) gm/dl Globulin (2.5-4.0) gm/dl Albumin/Globulin Ratio (0.9-2) Lipase (73-393) U/L Urine Color Urine Appearance (Clear) Urine pH (4.5-7.5) Ur Specific [place] (1.000-1.030) Urine Protein (Negative) Urine Glucose (UA) (Negative) Urine Ketones (Negative) Urine Blood (Negative) Urine Nitrite (Negative) Urine Bilirubin (Negative) Urine Urobilinogen (Negative) Ur Leukocyte Esterase (Negative) Administered Medications Apixaban (Eliquis) 10 mg PO BID [facility] Stop: 02/22/19 21:14 Last Admin: 02/16/19 21:28 Dose: 10 mg Documented by: [id number] Admin: 02/16/19 08:42 Dose: 10 mg Documented by: [id number] Admin: 02/15/19 21:35 Dose: 10 mg Documented by: [id number] Aspirin (Ecotrin Ectab) 81 mg PO [facility] Stop: 03/18/19 08:59 Last Admin: 02/16/19 08:44 Dose: 81 mg Documented by: [id number] Atovaquone (Mepron) 750 mg PO [facility] Stop: 03/17/19 08:59 Last Admin: 02/16/19 08:44 Dose: 750 mg Documented by: [id number] Admin: 02/15/19 07:48 Dose: 750 mg Documented by: [id number] Docusate Sodium (Colace) 250 mg PO [facility] Stop: 03/17/19 08:59 Last Admin: 02/16/19 08:44 Dose: Not Given Documented by: [id number] Admin: 02/15/19 07:49 Dose: 250 mg Documented by: [id number] Ioversol (Optiray 320 100ml) 93 ml IV ONCE PRN PRN Reason: Interaction Checking Stop: 02/18/19 22:14 Last Admin: 02/14/19 22:16 Dose: 93 ml Documented by: [id number] Lactobacillus Acidophilus (Floranex) 4 tab PO DAILY [facility] Stop: 03/17/19 08:59 Last Admin: 02/16/19 08:43 Dose: 4 tab Documented by: [id number] Admin: 02/15/19 07:48 Dose: 4 tab Documented by: [id number] Multivitamins (Multivitamin Tab) 1 tab PO DAILY [facility] Stop: 03/17/19 08:59 Last Admin: 02/16/19 08:43 Dose: 1 tab Documented by: [id number] Admin: 02/15/19 07:49 Dose: 1 tab Documented by: [id number] Psyllium Hydrophilic Mucilloid (Metamucil) 1 pkt PO DAILY [facility] Stop: 03/17/19 08:59 Last Admin: 02/16/19 08:44 Dose: 1 pkt Documented by: [id number] Admin: 02/15/19 07:48 Dose: 1 pkt Documented by: [id number] Sertraline HCl (Zoloft) 50 mg PO DAILY [facility] Stop: 03/17/19 08:59 Last Admin: 02/16/19 08:44 Dose: 50 mg Documented by: [id number] Admin: 02/15/19 07:49 Dose: 50 mg Documented by: [id number] Tamsulosin HCl (Flomax) 0.4 mg PO DAILY [facility] Stop: 03/17/19 08:59 Last Admin: 02/16/19 08:42 Dose: 0.4 mg Documented by: [id number] Admin: 02/15/19 07:49 Dose: 0.4 mg Documented by: [id number] Triamterene/HCTZ (Dyazide 37.5/25mg) 1 cap PO QAM [facility] Stop: 03/17/19 08:59 Last Admin: 02/16/19 08:42 Dose: 1 cap Documented by: [id number] Admin: 02/15/19 07:49 Dose: 1 cap Documented by: [id number] Vitamin D (Vitamin D3) 2,000 units PO DAILY [facility] Stop: 03/17/19 08:59 Last Admin: 02/16/19 08:43 Dose: 2,000 units Documented by: [id number] Admin: 02/15/19 07:49 Dose: 2,000 units Documented by: [id number] Discontinued Medications Aspirin (Ecotrin) 325 mg PO QAM [facility] Stop: 03/17/19 08:59 Last Admin: 02/15/19 07:49 Dose: 325 mg Documented by: [id number] Fentanyl Citrate (Fentanyl Citrate) 50 mcg IV NOW STA Stop: 02/14/19 20:55 Last Admin: 02/14/19 21:17 Dose: 50 mcg Documented by: [id number] Heparin Sodium (Porcine) (Heparin Sodium (Porcine)) Confirm Administered Dose 5,000 units .ROUTE .STK-MED ONE Stop: 02/14/19 23:21 Last Admin: 02/14/19 23:34 Dose: 4,000 units Documented by: [id number] Cosigned by: [id number] Heparin Sodium/Dextrose () 1 ea IV NOW STA; Protocol Stop: 02/14/19 23:02 Last Admin: 02/14/19 23:35 Dose: 1 ea Documented by: [id number] Sodium Chloride (Nss 1000ml) 1,000 mls @ 999 mls/hr IV .Q1H1M ONE Stop: 02/14/19 21:54 Last Infusion: 02/14/19 22:15 Dose: 0 mls/hr Documented by: [id number] Admin: 02/14/19 21:17 Dose: 999 mls/hr Documented by: [id number] Heparin Sodium/Dextrose (Heparin Sodium/Dextrose) 25,000 units in 500 mls @ 14 mls/hr IV .Q24H [facility]ANYA; Protocol Stop: 03/16/19 23:14 Last Titration: 02/15/19 21:17 Dose: 0 units/hr, 0 mls/hr Documented by: [id number] Cosigned by: [id number] Titration: 02/15/19 14:31 Dose: 850 units/hr, 17 mls/hr Documented by: [id number] Cosigned by: [id number] Titration: 02/15/19 07:35 Dose: 700 units/hr, 14 mls/hr Documented by: [id number] Cosigned by: [id number] Titration: 02/15/19 06:28 Dose: 0 units/hr, 0 mls/hr Documented by: [id number] Cosigned by: [id number] Admin: 02/14/19 23:34 Dose: 850 units/hr, 17 mls/hr Documented by: [id number] Cosigned by: [id number] Heparin Sodium (Porcine) 4,500 (units/ Syringe) 4.5 mls @ 10 mls/min IV ONE ONE Stop: 02/15/19 14:46 Last Admin: 02/15/19 14:41 Dose: 10 mls/min Documented by: [id number] Cosigned by: [id number] Perflutren Lipid Microsphere (Definity) 2 ml IV ONCE ONE Stop: 02/15/19 14:31 Last Admin: 02/15/19 14:30 Dose: 2 ml Documented by: [id number] Imaging Data Radiologist's Impression: Radiology results as stated below per my review and the radiologist's interpretation: ABDOMEN AND PELVIS CT WITH IV CONTRAST CT DOSE: 590.96 mGy.cm HISTORY: Acute right upper quadrant and right flank pain RUQ/Right Flank pain TECHNIQUE: Multiaxial CT images of the abdomen and pelvis were performed following the IV administration of 83 cc of Optiray 320, A dose lowering technique was utilized adhering to the principles of ALARA. COMPARISON STUDY: CT abdomen and pelvis 11/28/2014 FINDINGS: Trace right pleural effusion with linear right basilar consolidation and subpleural groundglass densities. There are questioned segmental and subsegmental pulmonary emboli within the right lung base (for example please see image 28 of series 3). Mild left basilar atelectasis/scarring. There is no pneumatosis or pneumoperitoneum. Spleen, and pancreas appear unremarkable. Left adrenal gland appears surgically absent. Mild right adrenal gland thickening. Contracted gallbladder. No biliary ductal dilation. 6 mm hypodense focus of the right hepatic lobe suggests probable cyst. Liver is otherwise unremarkable. Patency of the hepatic and portal veins. Surgically absent left kidney. Intermediate attenuating 1.3 cm lesion of the inferior pole right kidney appears stable in size from 2015. No right-sided renal calculi or hydronephrosis. 2.6 cm lateral right urinary bladder diverticulum. Mild bladder wall thickening. Uterus and adnexa are unremarkable. Moderate mixed plaque the abdominal aorta without aneurysm. No adenopathy. 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 No bowel obstruction or bowel wall thickening. Colonic diverticulosis without acute diverticulitis. Mild to moderate fecal retention. Terminal ileum and appendix are unremarkable. No ascites or mesenteric inflammation. Degenerative changes of the spine, pelvis and hips. Multiple subacute to chronic appearing posterior left rib fractures. IMPRESSION: 1. Trace right pleural effusion with right lung base opacities suggestive of atelectasis and/or pulmonary infarct. Additionally, there is suggestion of segmental and subsegmental pulmonary emboli of the basal right lower lobe. Correlation with CTA of the chest recommended. 2. No bowel obstruction or bowel wall thickening. 3. Colonic diverticulosis without acute diverticulitis. 4. Urinary bladder diverticulum with mild urinary bladder wall thickening. Correlate with urinalysis. 5. Mild to moderate fecal retention. 6. 1.3 cm intermediate attenuating lesion of the inferior pole right kidney. This appears unchanged in size from the 2015 study and may reflect a complex cyst however is technically indeterminate. 7. Additional findings as above. ACT 112: Negative or not required by law. The above report was generated using voice recognition software. It may contain grammatical, syntax or spelling errors. Electronically signed by: Gil Malone M.D. 02/14/2019 10:50 PM Discharge Plan Visit Data *Final* Discharge Date/Time: 02/15/19 04:05 Chief Complaint: Abdominal Pain Stated Complaint: RT SIDE PAIN BELOW BREAST AND DOWN ED Provider: Adrian López Discharge Problem: Pulmonary embolism, Infarct of lung, Acute deep vein thrombosis (DVT) of left l ower extremity Patient Disposition: Admitted As Inpatient Discharge Instructions Interventions: ED Discharge Assessment Last Done: 02/15/19 04:05 Discharge Problem: Pulmonary embolism Qualifiers: Pulmonary embolism type: other Chronicity: acute Acute cor pulmonale presence: without acute cor pulmonale Qualified Code(s): I26.99 - Other pulmonary embolism without acute cor pulmonale Acute deep vein thrombosis (DVT) of left lower extremity Qualifiers: Affected thrombotic vein of extremity: popliteal Qualified Code(s): I82.432 - Acute embolism and thrombosis of left popliteal vein The scribe's documentation has been prepared under my direction and personally reviewed by me in its entirety. I confirm that the note above accurately reflects all work, treatment, procedures, and medical decision making performed by me.
[2019-02-17] MEDS: TAMSULOSIN HCL 0.4 MG CAP PO SCH (08:59)
[2019-02-17] MEDS: ASPIRIN 81 MG ECTAB PO SCH (08:59)
[2019-02-17] MEDS: CHOLECALCIFEROL 1,000 UNITS TAB PO SCH (08:59)
[2019-02-17] MEDS: DOCUSATE SODIUM SYRUP 100 MG/10 ML UDC PO SCH (08:59)
[2019-02-17] MEDS: LACTOBACILLUS ACIDOPHILUS (FLORANEX) TAB PO SCH (09:00)
[2019-02-17] MEDS: SERTRALINE HCL 50 MG TABLET PO SCH (09:00)
[2019-02-17] MEDS: MULTIVITAMIN TAB PO SCH (09:00)
[2019-02-17] MEDS: TRIAMTERENE/HCTZ 37.5/25MG CAP PO SCH (09:00)
[2019-02-17] MEDS: APIXABAN 5 MG TABLET PO SCH (09:00)
[2019-02-17] MEDS: ATOVAQUONE 750 MG/5 ML UDC PO SCH (09:01)
[2019-02-17] MEDS: PSYLLIUM 58.6% POWDER PACKET PO SCH (09:01)
--- NOTE | 2019-02-17 15:45 | Discharge Summary ---
Date of Service February 17, 2019 Admission HPI Per Admitting Provider Marjorie Rajput is an 84-year-old female with a past medical history of Lyme disease, CKD 4, dementia, gout, hypertension who presented with leg swelling, right upper quadrant flank pain, and chest pain. She reports that she has had several days of sided chest pain underneath her right breast which is worse with inspiration. She denies shortness of breath, but reports that her has told her that she has been breathing more heavy. She denies fever, chills, sweats. She endorses fatigue. She has not been on any long car trips, and does not have a history of cancer or prior blood clots. She endorses left-sided abdominal pain intermittently. She reports a long history of fatigue for which she has seen multiple Lyme specialists, she was treated with an antibiotic for Lyme several years ago and despite multiple follow-ups has not been treated since. She has not pulled any ticks off of her as far she knows. She continues to see my specialists for fatigue. Denies joint pain, muscle pain, joint swell ing but endorses fatigue.Trace pleural effusion with concern for atelectasis versus pulmonary infarct was noted on the upper slices of CT abdomen, follow-up Dopplers showed DVT. She started on heparin bolus with subsequent drip in the emergency department. Past medical history: CKD, Lyme disease, anxiety, hypertension Past surgical history: Tubal ligation, left nephrectomy Family history: CKD Social history: , lives with her . Denies alcohol use. Denies substance use. Denies current former tobacco use. CODE STATUS: DNR. Would be okay with intubation for respiratory support as a temporary measure, but does not want chest compressions but she could. Principal Diagnosis Acute DVT lower extremity, Acute pulmonary embolism Discharge Exam Constitutional WD/WN, vitals as above Eyes + anicteric sclerae ENMT external ear and nose normal, oropharynx normal Neck trachea midline, no thyromegaly Respiratory normal respiratory effort, lungs clear to auscultation Cardiovascular Rate/Rhythm: regular rate and regular rhythm Heart Sounds: no murmur Extremities: + edema (left leg and ankle with 1+ edema, no edema RLE) Chest (Breasts) Chest: normal inspection of chest Gastrointestinal (Abdomen) normal bowel sounds, soft, nontender, no hepatosplenomegaly Musculoskeletal Extremities: no cyanosis and no clubbing Skin no rashes, warm and dry Neurologic moves all extremities and awake; no focal motor deficits Psychiatric A+Ox3, euthymic affect Lymphatic no lymphedema Discharge Data Allergies Allergy/AdvReac Type Severity Reaction Status Date / Time allopurinol Allergy Unknown ENDED UP Verified 02/14/19 23:29 IN THE HOSPITAL-UNSURE OF SYMPTOMS Bactrim Allergy Unknown UNKNOWN Verified 05/25/17 07:33 sulfamethoxazole Allergy Unknown UNKNOWN Verified 02/14/19 23:29 trimethoprim Allergy Unknown UNKNOWN Verified 02/14/19 23:29 HERNANDEZ Inhibitors AdvReac Mild COUGH Verified 02/14/19 23:29 atorvastatin AdvReac Mild SORE Verified 02/14/19 23:29 MUSCLES meperidine AdvReac Mild COULD NOT Verified 02/14/19 23:29 WAKE UP AFTER simvastatin AdvReac Mild SORE Verified 02/14/19 23:29 MUSCLES Consultations 02/14/19 23:01 ED Decision to Admit Stat Procedures Performed ECHO Ordered Studies 02/14/19 20:55 CT abd pelvis IV con only Stat 02/15/19 23:08 US venous doppler LE BI Urgent CXR Hospital Course (1) Pulmonary embolism: Suspected based on CT A/P with visualization of segmental and subsegmental PEs in RLL CTA Chest deferred due to already receiving IV contrast and has CKD stage 3-4 Doppler LLE positive for left sided DVT and with right pleuritic symptoms. ER notes report son stated he has Factor V Leiden deficiency, and also pt and her report she has been very sedentary the last 3-4 weeks due to fatigue and joint pains from her Lyme disease. Likely provoked by this and possiblity of Factor V Leiden No previous VTE ECHO with mild Pulm HTN, preserved EF Not hypoxic Still with some pleuritic chest pain improved with tylenol -continue Eliquis on discharge for 6 months -consider hypercoag testing, specifically Factor V Leiden and discussion about risk of future clot and whether to continue on prophylactic dose of Elqiuis after 6 months (2) DVT (deep venous thrombosis): LLE, see above (3) Epigastric abdominal pain: Abdominal pain in RUQ and epigastric region likely pleuritic from PEs -improved/resolved at time of dc CT abdomen shows diverticulosis without diverticulitis, fecal retention Suspect 2/2 constipation also contributed-was moving bowels at time of dc Lactulose daily was given (4) Chronic kidney disease, stage 4 (severe): CKD stage 3-4, 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 (7) Peripheral neuropathy: noted in chart, unclear etiology (8) Generalized weakness: secondary to tick borne illness-continue f/u with ID as planned (9) Gout: no active flare, not on meds (10) Erosive osteoarthritis of right hand: continue tylenol only for pain (11) HTN (hypertension): BPs controlled Continue triamterenehydrochlorothiazide daily Continue aspirin daily but reduced to 81mg from 325 (12) Renal mass: incidental finding noted on CT of 1.3cm mass that is indeterminate on right kidney -f/u with Urology or for repeat imaging with PCP-advised pt of this on discharge instructions (13) Discharge planning issues: Medically stable for discharge -no need for placement Total Time Total Time Spent Total Time Spent (In Minutes): 35 min Total Time Includes: Examination of the Patient, Discharge Planning and Medication Reconciliation Discharge Plan Discharge Items Patient Disposition: Home - Home Health Services Reason For Visit: DVT WITH CHEST PAIN Discharge Diagnosis: Acute DVT, pulmonary embolism Condition on Discharge: Fair Goals: You have been hospitalized for an acute medical problem. During your stay at [facility], we have made an effort to correct the problem that brought you to the hospital while keeping you as comfortable as possible. Medications were used to bring your condition under control and your discharge instructions will include directions for any medications you should take after leaving the hospital. Please make sure you see your Primary Care Provider as part of your follow up plan. Activity: As commented below Lifting: Gradually increase as tolerated Bathing: No limitations Exercise/Sports: Gradually increase as tolerated Weightbearing: Full weightbearing Non-emergency contact: Primary Care Provider Call non-emergency contact if: you have any medication questions, your symptoms worsen, your pain is not controlled, your pain is worsening, your pain is unusual for you, your pain is concerning for you, you have a fever and your temperature is above 101 Follow-up/Referrals: Gaby Mcelroy CRNP [Primary Care Provider] - 02/21/19 10:30 am (Please, follow up at [facility] with Gaby SANDOVAL on SundayFebruary 21 at 10:30 am. *If you need to change this appointment, call the office at [phone].) Diet: Low Sodium (2gm) Addtl Attending Provider Instructions: Please take the Eliquis 10mg twice a day for 5 more days and then decrease the dose down to 5mg twice a day. You will stay on this for 6 months. You can take Tylenol as needed for pain and use the incentive spirometer device you have at home to take deep breaths throughout the day. You can walk around as much as you feel up to. If you have any issues with bleeding such as blood in your stool, your urine, vaginal bleeding, or if you cough up blood or vomit blood, please go to the hospital right away. If you fall and hit your head and have a headache, you should get checked out to make sure there is no bleeding in your brain. Incidentally there was a 1.3cm lesion on your right kidney that should be followed by your doctor after discharge. You may need repeat imaging of your kidney or a referral to a Urologist. Please follow up with your PCP as scheduled for you. Pending Studies at Discharge: No Stand-Alone Forms: [facility] Medications and DC Order Prescriptions: New Eliquis 5 mg Tablet 10 mg PO BID Qty: 70 RF: 0 acetaminophen [Mapap (acetaminophen)] 325 mg Tablet 650 mg PO Q4H PRN (Reason: pain) Qty: 30 RF: 0 aspirin [Ecotrin Low Strength] 81 mg Tablet,Delayed Release (Dr/Ec) 81 mg PO QAM Qty: 30 RF: 0 Continued Adult 50 Plus Probiotic 4 billion cell capsule 4,000 mmu cells PO DAILY Qty: 30 RF: 0 Metamucil 3.4 gram/5.4 gram powder 1 tbs PO DAILY RF: 0 multivitamin [Multiple Vitamins] tablet 1 tab PO DAILY RF: 0 hydrocortisone 2.5 % cream with perineal applicator 1 applic MT TID PRN (Reason: Hemorrhoids) Qty: 1 RF: 0 atovaquone [Mepron] 750 mg/5 mL suspension 750 mg PO QAM RF: 0 lorazepam [Ativan] 0.5 mg tablet 0.25 mg PO TID PRN (Reason: anxiety) 30 Days Qty: 45 RF: 0 sertraline 50 mg tablet 50 mg PO DAILY Qty: 90 RF: 1 cholecalciferol (vitamin D3) 2,000 unit tablet 2,000 unit PO DAILY RF: 0 docusate sodium 250 mg capsule 250 mg PO QAM RF: 0 tamsulosin 0.4 mg capsule 0.4 mg PO DAILY RF: 0 triamterene-hydrochlorothiazid 37.5-25 mg capsule 1 cap PO QAM RF: 0 Discontinued aspirin 325 mg tablet,delayed release (DR/EC) 325 mg PO QAM RF: 0 Discharge Orders: Discharge Order (Routine); Ordered 02/17/19 Ordered By: Leslie Ayers/Other Patient Handouts: DVT, DVT Complications Admission Data Admit Date/Time: 02/15/19 03:35 Attending Provider: Leslie Delgadillo Admit Provider: Gwyn Winter Primary Care Provider: Gaby Mcelroy Other Providers: Senthil Alonzo ; [place] Other Interventions: Discharge Summary Assessment (RN) Last Done: 02/17/19 16:47 DC Date/Time DO NOT enter until pt leaves facility: 02/17/19 17:45
== END 2019-02-17 17:45 | disposition home health service (06) | DRG 176 ==
LOC: ED 19:23 → 1E 02-15 03:35 → SUATTDRO 02-15 03:35 → 1E 02-15 04:05 → 2S 02-15 18:37 → 3W 02-16 10:03